=== PATIENT | female | born 1955 | race Caucasian/White ===

== ENCOUNTER 2018-10-05 18:31 | Emergency (ER) | payer OTHER, SELFPAY ==
[~2018-10-05] VITALS: Ht 165.1 cm; Wt 84.8 kg
[~2018-10-05 18:31] MED LIST: ATOR10 PO; CHOL10002 PO; GABA300 PO; Norco 10-325 T1 EACH PO; ZOLP10 PO
[2018-10-05 19:52] LABS: BASOPHILS ABSOLUTE AUTO 0.07 K/mm3 (0.00-0.23); BASOPHILS PERCENT AUTO 1 % (0-2); EOSINOPHILS ABSOLUTE AUTO 0.22 K/mm3 (0.00-0.68); EOSINOPHILS PERCENT AUTO 3 % (0-6); Hematocrit 42.3 % (33.0-51.0); Hemoglobin 13.3 g/dL (11.5-16.0); IMMATURE GRAN ABSOLUTE AUTO 0.02 K/mm3 (0.00-0.10); IMMATURE GRAN PERCENT AUTO 0 % (0-1); LYMPHOCYTES ABSOLUTE AUTO 2.05 K/mm3 (0.84-5.20); LYMPHOCYTES PERCENT AUTO 28 % (21-46); MONOCYTES ABSOLUTE AUTO 0.45 K/mm3 (0.16-1.47); MONOCYTES PERCENT AUTO 6 % (4-13); Mean Corpuscular HGB 29.1 pg (26.0-34.0); Mean Corpuscular HGB Conc 31.4 g/dL (31.5-36.5); Mean Corpuscular Volume 93 fL (80-100); Mean Platelet Volume 10.3 fL (9.1-12.4); NEUTROPHILS ABSOLUTE AUTO 4.41 K/mm3 (1.96-9.15); NEUTROPHILS PERCENT AUTO 61 % (41-73); Platelet Count 249 K/mm3 (150-400); RDW Coefficient Variation 14.1 % (11.7-14.2); RDW Standard Deviation 47.5 fL (35.1-46.3); Red Blood Cell Count 4.57 M/mm3 (3.80-5.20); White Blood Cell Count 7.22 K/mm3 (4.00-11.30)
[2018-10-05 20:08] LABS: Albumin, Blood 3.8 g/dL (3.4-5.0); Albumin/Globulin Ratio 1.1 (0.8-1.8); Bilirubin, Total 0.4 mg/dL (0.1-1.0); Bun/Creatinine Ratio 21.2 (12.0-20.0); Calcium, Blood 9.2 mg/dL (8.5-10.1); Creatinine, Blood 1.04 mg/dL (0.40-1.00); Globulin, Blood 3.5 g/dL (2.2-4.0); Potassium, Blood 4.3 mmol/L (3.5-5.5); Total Protein, Blood 7.3 g/dL (6.4-8.2)
[2018-10-05 22:27] LABS: Influenza A Negative (NEGATIVE); Influenza B Negative (NEGATIVE)
[2018-10-05 22:57] LABS: Source, Urine Clean Catch
[2018-10-05 23:01] LABS: Bilirubin, Urine Neg (Neg); Blood, Urine Neg (Neg); Glucose Qualitative, Urine Neg (Neg); Ketones, Urine Neg (Neg); Leukocyte Esterase, Urine Neg (Neg); Nitrite, Urine Neg (Neg); Protein, Urine Neg (Neg); Urobilinogen, Urine NORM (Normal)
[2018-10-05 23:03] LABS: Appearance, Urine Clear (Clear); Color, Urine Pale Yellow (P-Yellow)
[2018-10-05] MEDS ORDERED: Prednisone20 MG PO (23:32)
[2018-10-05] MEDS ORDERED: BENZ100A PO (23:32)
[2018-10-05] MEDS ORDERED: ALBU90OI INH (23:32)
[2018-10-05] MEDS ORDERED: Zofran4 MG PO (23:32)
== END 2018-10-05 23:49 | disposition home or self-care (01) ==
LOC: ER 18:31
PROVIDERS: Emergency Medicine
DX: J40 Bronchitis, not specified as acute or chronic (principal); R11.2 Nausea with vomiting, unspecified; R74.0 Nonspecific elevation of levels of transaminase and lactic acid dehydrogenase [LDH]; R19.7 Diarrhea, unspecified; Z88.0 Allergy status to penicillin; Z88.8 Allergy status to other drugs, medicaments and biological substances; Z79.899 Other long term (current) drug therapy; F17.200 Nicotine dependence, unspecified, uncomplicated; Z90.49 Acquired absence of other specified parts of digestive tract
CPT/HCPCS: 36415; 71046; 80053; 81003; 83690; 85025; 87804; 93005; 93010; 94644; 96361; 96374; 96376; 99284-25; J2405; J7030

== ENCOUNTER 2019-01-24 08:00 | Day surgery (SDC) | payer OTHER, SELFPAY ==
[~2019-01-24] VITALS: Ht 152.4 cm; Wt 85.2 kg
[~2019-01-24 08:00] MED LIST changes: +ALBU90OI INH; +BENZ100A PO; +Neurontin600 MG PO; +Prednisone20 MG PO; +VITAMIN D32000 UNIT PO; +Zofran4 MG PO
[2019-01-24] MEDS ORDERED: Norco 7.5-3251 EACH PO (08:35)
== END 2019-01-24 10:00 | disposition home or self-care (01) ==
LOC: ORSCSDS 08:00
PROVIDERS: Ophthalmology
PROC: 08RJ3JZ Replacement of Right Lens with Synthetic Substitute, Percutaneous Approach (ICD-10-PCS; principal; 2019-01-24 09:30)
DX: H25.11 Age-related nuclear cataract, right eye (principal); J44.9 Chronic obstructive pulmonary disease, unspecified; F17.210 Nicotine dependence, cigarettes, uncomplicated; Z79.899 Other long term (current) drug therapy
CPT/HCPCS: J2250; J3010; J3301; J7120; V2632

== ENCOUNTER 2019-02-07 08:39 | Day surgery (SDC) | payer OTHER, SELFPAY ==
[~2019-02-07] VITALS: Ht 165.1 cm; Wt 85.4 kg
[~2019-02-07 08:39] MED LIST changes: +Norco 7.5-3251 EACH PO
--- NOTE | 2019-02-07 09:23 | NUR ---
02/07/19 0923 Cameron Niño CALL LIGHT WITHIN REACH
== END 2019-02-07 10:40 | disposition home or self-care (01) ==
LOC: ORSCSDS 08:39
PROVIDERS: Ophthalmology
PROC: 08RK3JZ Replacement of Left Lens with Synthetic Substitute, Percutaneous Approach (ICD-10-PCS; principal; 2019-02-07 10:00)
DX: H25.12 Age-related nuclear cataract, left eye (principal); Z79.899 Other long term (current) drug therapy
CPT/HCPCS: J2001; J2250; J3010; J3301; J7040; J7120; V2632

== ENCOUNTER 2020-02-10 14:23 | Emergency (ER) | payer MEDICARE, OTHER ==
[~2020-02-10] VITALS: Ht 165.1 cm; Wt 91.6 kg
[2020-02-10] MEDS ORDERED: PREG150 PO (14:34)
[2020-02-10] MEDS ORDERED: Estradiol0.5 MG PO (14:37)
== END 2020-02-10 18:44 | disposition home or self-care (01) ==
LOC: ER 14:23
DX: G89.29 Other chronic pain (principal); M54.5 Low back pain; F17.200 Nicotine dependence, unspecified, uncomplicated; Z88.0 Allergy status to penicillin; Z88.8 Allergy status to other drugs, medicaments and biological substances; Z88.5 Allergy status to narcotic agent; Z79.899 Other long term (current) drug therapy
CPT/HCPCS: 36415; 73030; A9270; J1170; J1885; J2405

== ENCOUNTER 2023-01-30 00:59 | Emergency (ER) | payer OTHER ==
[~2023-01-30] VITALS: Ht 162.6 cm; Wt 72.6 kg
[~2023-01-30 00:59] MED LIST changes: +Estradiol0.5 MG PO; +PREG150 PO
[2023-01-30 05:15] VITALS: BP 112/60
== END 2023-01-30 06:03 | disposition home or self-care (01) ==
LOC: ER 00:59
DX: S01.81XA Laceration without foreign body of other part of head, initial encounter (principal); Z23 Encounter for immunization; W06.XXXA Fall from bed, initial encounter; Z88.0 Allergy status to penicillin; Z88.5 Allergy status to narcotic agent; Z88.8 Allergy status to other drugs, medicaments and biological substances; Z79.899 Other long term (current) drug therapy; F17.200 Nicotine dependence, unspecified, uncomplicated
CPT/HCPCS: 12015; 70450; 72125; 90471; 90714; 96374-59; 96375-59; 99283-25; A9270; J0690; J1170; J2270

== ENCOUNTER 2023-04-08 05:51 | Day surgery (SDC) | payer OTHER ==
[~2023-04-08] VITALS: Ht 162.6 cm; Wt 76.4 kg
[2023-04-08] MEDS ORDERED: FURO40 PO (06:20)
[2023-04-08 06:46] VITALS: BP 113/69
--- NOTE | 2023-04-08 06:48 | NUR ---
RUBBING SOUNDS HEARD UPON AUSCULTATION OF LUNGS BILATERALLY FROM MID LOBE TO BASES. PT REFUSED BREATHING TREATMENT PREPROCEDURALLY, NOTIFIED.
--- NOTE | 2023-04-08 08:03 | NUR ---
04/08/23 0803 Tamica Rondon SEE ANESTHESIA RECORD FOR SEDATION
--- NOTE | 2023-04-08 09:47 | NUR ---
POWERGLIDE PLACED BY [employer] DIRECTORQUINCY DIAZ. PT UPDATED WITH ESTIMATED WAIT TIME FOR PROCEDURE.
[2023-04-08 13:05] VITALS: BP 150/90
--- NOTE | 2023-04-08 13:09 | NUR ---
REPORT RECEIVED FROM ALEJANDRA OVALLE RN. VSS. PT ABLE TO REPOSITION SELF IN BED. PT REQUESTING PO FLUIDS AND TOLERATING THEM WELL. PT DENIES PAIN OR DISCOMFORT AT THIS TIME.
[2023-04-08 13:17] VITALS: BP 149/80
--- NOTE | 2023-04-08 13:37 | NUR ---
Patient up to Ambulate independently. Gait steady. VSS AND CONSISTENT WITH PT BASELINE. Discharge instructions reviewed with patient. Patient verbalizes understanding. Copy given to patient to take home. Patient States Post-Procedure ride home has been arranged. Discharged via wheelchair to private car for ride home. PT DENIES PAIN OR DISCOMFORT. PT BELONGINGS RETURNED TO PT.
== END 2023-04-08 13:43 | disposition home or self-care (01) ==
LOC: ORSCMMR 05:51 → ORD 07:30 → ORSCMMR 13:43
PROVIDERS: Surgery
PROC: 0DBN8ZX Excision of Sigmoid Colon, Via Natural or Artificial Opening Endoscopic, Diagnostic (ICD-10-PCS; principal; 2023-04-08 07:30)
PROC: 0DBL8ZX Excision of Transverse Colon, Via Natural or Artificial Opening Endoscopic, Diagnostic (ICD-10-PCS; principal; 2023-04-08 07:30)
PROC: 0DBM8ZX Excision of Descending Colon, Via Natural or Artificial Opening Endoscopic, Diagnostic (ICD-10-PCS; principal; 2023-04-08 07:30)
DX: Z12.11 Encounter for screening for malignant neoplasm of colon (principal); D12.3 Benign neoplasm of transverse colon; D12.4 Benign neoplasm of descending colon; D12.5 Benign neoplasm of sigmoid colon; K64.4 Residual hemorrhoidal skin tags; K64.0 First degree hemorrhoids; I12.9 Hypertensive chronic kidney disease with stage 1 through stage 4 chronic kidney disease, or unspecified chronic kidney disease; N18.30 Chronic kidney disease, stage 3 unspecified; E78.5 Hyperlipidemia, unspecified; F17.210 Nicotine dependence, cigarettes, uncomplicated; Z79.899 Other long term (current) drug therapy
CPT/HCPCS: 88305; C1751; J2704; J7120

== ENCOUNTER 2023-05-26 15:20 | Emergency (ER) | payer MEDICARE ==
[~2023-05-26] VITALS: Ht 162.6 cm; Wt 73.0 kg
[~2023-05-26 15:20] MED LIST changes: +FURO40 PO
[2023-05-26 15:43] VITALS: BP 103/54
== END 2023-05-26 16:59 | disposition home or self-care (01) ==
LOC: ER 15:20
DX: M25.551 Pain in right hip (principal); F17.200 Nicotine dependence, unspecified, uncomplicated; Z88.0 Allergy status to penicillin; Z88.5 Allergy status to narcotic agent; Z88.8 Allergy status to other drugs, medicaments and biological substances; Z79.899 Other long term (current) drug therapy
CPT/HCPCS: 73502; J1885

== ENCOUNTER 2023-06-18 13:14 | Emergency (ER) | payer MEDICARE ==
[~2023-06-18] VITALS: Ht 165.1 cm; Wt 75.3 kg
[2023-06-18 17:00] LABS: BASOPHILS ABSOLUTE AUTO 0.04 K/mm3 (0.00-0.23); BASOPHILS PERCENT AUTO 1 % (0-2); EOSINOPHILS PERCENT AUTO 2 % (0-6); Hematocrit 52.5 % (33.0-51.0); Hemoglobin 17.5 g/dL (11.5-16.0); IMMATURE GRAN ABSOLUTE AUTO 0.03 K/mm3 (0.00-0.10); IMMATURE GRAN PERCENT AUTO 1 % (0-1); LYMPHOCYTES ABSOLUTE AUTO 1.23 K/mm3 (0.84-5.20); LYMPHOCYTES PERCENT AUTO 20 % (21-46); MONOCYTES ABSOLUTE AUTO 0.48 K/mm3 (0.16-1.47); MONOCYTES PERCENT AUTO 8 % (4-13); Mean Corpuscular HGB 29.2 pg (26.0-34.0); Mean Corpuscular HGB Conc 33.3 g/dL (31.5-36.5); Mean Corpuscular Volume 88 fL (80-100); Mean Platelet Volume 10.5 fL (9.1-12.4); NEUTROPHILS ABSOLUTE AUTO 4.36 K/mm3 (1.96-9.15); NEUTROPHILS PERCENT AUTO 70 % (41-73); Platelet Count 248 K/mm3 (150-400); RDW Coefficient Variation 13.7 % (11.7-14.2); White Blood Cell Count 6.24 K/mm3 (4.00-11.30)
[2023-06-18 17:22] LABS: Albumin, Blood 4.4 g/dL (3.4-5.0); Albumin/Globulin Ratio 1.1 (0.8-1.8); Bilirubin, Total 0.8 mg/dL (0.1-1.0); Bun/Creatinine Ratio 18.4 (12.0-20.0); Calcium, Blood 10.4 mg/dL (8.5-10.1); Creatinine, Blood 1.52 mg/dL (0.40-1.00); Globulin, Blood 3.9 g/dL (2.2-4.0); Total Protein, Blood 8.3 g/dL (6.4-8.2)
[2023-06-18 17:44] VITALS: BP 119/86
== END 2023-06-18 19:34 | disposition home or self-care (01) ==
LOC: ER 13:14
PROVIDERS: Student in an Organized Health Care Education/Training Program
DX: G62.9 Polyneuropathy, unspecified (principal); I73.9 Peripheral vascular disease, unspecified; T82.898A Other specified complication of vascular prosthetic devices, implants and grafts, initial encounter; F17.210 Nicotine dependence, cigarettes, uncomplicated; Z88.0 Allergy status to penicillin; Z88.8 Allergy status to other drugs, medicaments and biological substances; Z88.5 Allergy status to narcotic agent; Z79.899 Other long term (current) drug therapy
CPT/HCPCS: 75635; 80053; 83605; 85025; 86850; 86900; 86901; 96361; 96374; 96375; 99284-25; A9270; J1170; J7030; Q9967

== ENCOUNTER 2023-07-19 09:00 | Day surgery (SDC) | payer MEDICARE ==
[~2023-07-19] VITALS: Ht 162.6 cm; Wt 76.0 kg
[2023-07-19] VITALS (8 sets, daily range): BP systolic 121–171; BP diastolic 69–97
[~2023-07-19 09:00] MED LIST changes: +ATOR40TA PO; +Aspir 8181 MG PO; +CATAPRES0.2 M1 PO; +EPIPEN0.3 MG/0.3 IM; +NEURONTIN600 MG PO; +Nicoderm Cq1 EACH TOP; +POTA10T PO; +TIZA4 PO
--- NOTE | 2023-07-19 12:45 | NUR ---
PATIENT ARRIVED TO RECOVERY ROOM. BILATERAL ANGIO SEAL SITES IN PLACE. R GROIN SITE TENDER, BUT SOFT. NO EVIDENCE OF BLEEDING. L SITE C/D/I SOFT/NONTENDER. R LOWER EXTREMITY PULSES PRESENT. L LOWER EXTREMITY DOPPLER PULSE ON PT.
--- NOTE | 2023-07-19 13:00 | NUR ---
PATIENT COMPLAINING OF CHRONIC LOWER BACK PAIN. NOTIFIED. VSS ON RA
--- NOTE | 2023-07-19 13:15 | NUR ---
PATIENT USING PUREWICK. L GROIN SITE OOZING. PRESSURE APPLIED. PRESENT AT BEDSIDE
--- NOTE | 2023-07-19 13:52 | NUR ---
NOTIFIED OF NO PULSE IN L PT
[2023-07-19] MEDS ORDERED: PREG150 PO (14:00)
--- NOTE | 2023-07-19 14:40 | NUR ---
PT L & R FEMORAL SITES C/D/I, SOFT, AND NON-TENDER. L LOWER EXTREMITY PULSE NOW NOTED WITH DOPPLER. PT REPORTS BACK PAIN HAS DECREASED "A LITTLE" SITTING UP IN BED, EATING LUNCH AT THIS TIME. NADN. GLOVER. PT WILL BE DC'D TO HOME WITHIN AN HOUR.
--- NOTE | 2023-07-19 15:30 | NUR ---
PT AMBULATES TO RESTROOM AND BACK WITHOUG DIFF. BILATERAL SITES REMAIN C/D/I. PT DRESSES SELF WITHOUT ASSISTANCE. VERBALIZES UNDERSTANDING WRITTEN AND VERBAL INSTRUCTIONS. DENIES QUESTIONS OR CONCERNS. PT IV DC'D. CATH INTACT. PRESSURE DSG APPLIED. PT DC TO HOME VIA FAMILY BY W/C
== END 2023-07-19 15:36 | disposition home or self-care (01) ==
LOC: MHTC 09:00 → PCU 13:32 → MHTC 15:36
DX: I73.9 Peripheral vascular disease, unspecified (principal); I10 Essential (primary) hypertension; E78.49 Other hyperlipidemia; G62.9 Polyneuropathy, unspecified; Z72.0 Tobacco use; N18.30 Chronic kidney disease, stage 3 unspecified; I12.9 Hypertensive chronic kidney disease with stage 1 through stage 4 chronic kidney disease, or unspecified chronic kidney disease; Z88.0 Allergy status to penicillin; Z88.5 Allergy status to narcotic agent
CPT/HCPCS: 37220; 75625; 75716; 75774; 76937; 99152; 99153; A9270; C1725; C1760; C1769; C1887; C1894; J0360; J1200; J1644; J2060; J2250; J2997; J3010; J7030; J7050; Q9967

== ENCOUNTER 2024-03-24 15:13 | Inpatient (IN) | payer MEDICARE, OTHER ==
[~2024-03-24] VITALS: Ht 165.1 cm; Wt 84.0 kg
[~2024-03-24 15:13] MED LIST changes: +ALBU90OI6 INH; +CYCL10 PO; +CYMBALTA20 M2 PO; +DIAZ2 PO; +DOC250 PO; +DOXY100 PO; +HYDR1TAB94 PO; +HYDROXYZINE PAM25 MG PO; +OXYACE7.5T PO; +VISBIOME 112.51 EACH PO; +ZOLPIDEM TARTRA10 MG PO
[2024-03-24 15:52] LABS: BASOPHILS ABSOLUTE AUTO 0.05 K/mm3 (0.00-0.23); BASOPHILS PERCENT AUTO 1 % (0-2); EOSINOPHILS ABSOLUTE AUTO 0.12 K/mm3 (0.00-0.68); EOSINOPHILS PERCENT AUTO 2 % (0-6); Hematocrit 40.7 % (33.0-51.0); Hemoglobin 12.4 g/dL (11.5-16.0); IMMATURE GRAN ABSOLUTE AUTO 0.04 K/mm3 (0.00-0.10); IMMATURE GRAN PERCENT AUTO 1 % (0-1); LYMPHOCYTES ABSOLUTE AUTO 1.14 K/mm3 (0.84-5.20); LYMPHOCYTES PERCENT AUTO 15 % (21-46); MONOCYTES ABSOLUTE AUTO 0.47 K/mm3 (0.16-1.47); MONOCYTES PERCENT AUTO 6 % (4-13); Mean Corpuscular HGB 27.9 pg (26.0-34.0); Mean Corpuscular HGB Conc 30.5 g/dL (31.5-36.5); Mean Corpuscular Volume 92 fL (80-100); Mean Platelet Volume 9.6 fL (9.1-12.4); NEUTROPHILS ABSOLUTE AUTO 5.87 K/mm3 (1.96-9.15); NEUTROPHILS PERCENT AUTO 76 % (41-73); Platelet Count 205 K/mm3 (150-400); RDW Coefficient Variation 14.7 % (11.7-14.2); RDW Standard Deviation 49.8 fL (35.1-46.3); Red Blood Cell Count 4.44 M/mm3 (3.80-5.20); White Blood Cell Count 7.69 K/mm3 (4.00-11.30)
[2024-03-24 16:39] LABS: Albumin/Globulin Ratio 0.7 (0.8-1.8); Bilirubin, Total 0.3 mg/dL (0.1-1.0); Bun/Creatinine Ratio 17.1 (12.0-20.0); Calcium, Blood 8.8 mg/dL (8.5-10.1); Creatinine, Blood 1.17 mg/dL (0.40-1.00); Globulin, Blood 4.1 g/dL (2.2-4.0); Potassium, Blood 4.6 mmol/L (3.5-5.5); Total Protein, Blood 7.1 g/dL (6.4-8.2)
[2024-03-24] MEDS ORDERED: Clindamycin 900mg in D5W 50ML 50 ML IV ONE (18:35)
[2024-03-24] MEDS ORDERED: Cefepime HCl 2,000 MG in NS 100 ML IV ONE (18:35)
[2024-03-24] MEDS ORDERED: Ketorolac Tromethamine 30mg Vial IV ONE (18:40)
[2024-03-24] MEDS ORDERED: Morphine Sulfate 4 MG/1 ML Injection IV ONE ×2 (18:40→20:35)
[2024-03-24] MEDS ORDERED: ZOLPIDEM TARTRA10 MG PO (19:15)
[2024-03-24] MEDS ORDERED: Ipratropium/Albuterol SulF 2.5-0.5MG/3 ML Amp INH ONE (21:55)
[2024-03-24] MEDS ORDERED: Naloxone HCl 0.4MG / ML 1ML Vial IV PRN (23:10)
[2024-03-24] MEDS ORDERED: Ondansetron HCl 2 MG / ML 2ML Vial IV PRN (23:10)
[2024-03-24] MEDS ORDERED: FentaNYL Citrate 50 MCG/ML 2 ML Injection IV PRN (23:15)
[2024-03-24] MEDS ORDERED: Acetaminophen 325 MG TABLET PO PRN (23:15)
[2024-03-25] VITALS (7 sets, daily range): BP systolic 90–139; BP diastolic 49–79
[2024-03-25] MEDS ORDERED: Lactated Ringer's 1,000 ML IV SCH
[2024-03-25 00:23] LABS: Anti-Xa UFH, PHA Monitoring <0.10 IU/mL; International Normalized Ratio 1.01; Prothrombin Time Results 10.8 Sec (9.7-11.5)
[2024-03-25] MEDS ORDERED: HYDROcodone 10-APAP 325 TAB PO PRN (00:25)
[2024-03-25] MEDS ORDERED: EpiNEPhrine 1 MG/1 ML 1ML Vial IM PRN (00:25)
[2024-03-25] MEDS ORDERED: Zolpidem Tartrate 10 MG Tab PO PRN (00:30)
[2024-03-25] MEDS ORDERED: Albuterol HFA200 ACT/6.7 GM INH INH PRN (00:30)
[2024-03-25] MEDS ORDERED: Heparin Sodium,Porcine/0.5 NS 500 ML IV SCH (00:40)
[2024-03-25] MEDS ORDERED: Heparin Sodium 5000 Units/ML 1ML MDV IV ONE (00:40)
[2024-03-25] MEDS ORDERED: Atorvastatin 40 MG Tab PO SCH (01:00)
--- NOTE | 2024-03-25 02:17 | NUR ---
ARRIVAL/ASSUMPTION OF CARE THIS RN ASSUMED CARE OF PT AT 0018 WHEN PT ARRIVED TO PCU. REPORT FROM NADIRA REYNA RN. PT ARRIVED VIA GURNEY, TRANSFERRED TO HOSPITAL BED VIA SLIDE SHEET. VS; SBP 94-112, HR 80'S, AFEBRILE, RR WNL, AND PT ON RA WITH SPO2 95%. PT DENIES DIZZINESS, CP/PRESSURE, SOB, N/V/D. PT REPORTS SEVERE PAIN, 10/10 IN LLE. LLE S/P REVASC "APPROXIMATELY 2 WEEKS AGO OR SO". EXTREMITY IS RED, TENDER, AND MANY OPEN SORES/WOUNDS ON THE TOP AND BOTTOM OF THE FOOT WITH SKIN PEELING AWAY, DISCOLORATION NOTED IN GREAT TOE AND 2,3,5 TOES, SEE PICTURES IN CHART. PAIN MEDICATION, REPOSTIONING AND REST OFFERED FOR PAIN WITH MODERATE RELIEF. ALTHOUGH PT REPORTS THE PAIN IS HARD TO CONTROL AND DOES NOT GET "MUCH RELIEF". PULSE PRESENT IN LLE WITH DOPPLER. SMALL SCAB/SORE NOTED ON R FOOT AND RLE COLD TO THE TOUCH, PULSE PALPABLE AND STRONG. PT REPORS [place] IND AT HOME WITH WALKER. PT ORIENTED TO ROOM AND CALL LIGHT AND MADE COMFORTABLE.
--- NOTE | 2024-03-25 06:34 | NUR ---
SHIFT SUMMARY PT REMAINS A&O X4. VSS. NO ACUTE CHANGES SINCE ARRIVAL/ASSUMPTION OF CARE NOTE. VSS; SBP 94 - 119, SR WITH HR IN 80'S, AFEBRILE, SPO2 92 % - 1-2 LPM NC PRN AND WHILE SLEEPING. SPO2 95-96% WITH O2. PT ABLE TO AMBULATE TO BSC WITH MINIMAL ASSISTANCE. PT DENIES ISSUES GI/. PT CONTINUES WITH PAIN 8-10. REPOSITIONING, REST, AND MEDICATION PER MAR WITH MINIMAL RELIEF. HEPARIN INFUSING PER PHARMACY. PODIATRY CONSULT CALLED THIS AM. PT NPO PER ORDERS IN CASE TO BE SEEN AND POSSIBLE PROCEDURE. CALL LIGHT IN REACH, PT ABLE TO MAKE NEEDS KNOWN. WILL UPDATE ONCOMING RN
[2024-03-25 07:07] LABS: Hematocrit 30.1 % (33.0-51.0); Hemoglobin 9.3 g/dL (11.5-16.0); Mean Corpuscular HGB 28.3 pg (26.0-34.0); Mean Corpuscular HGB Conc 30.9 g/dL (31.5-36.5); Mean Corpuscular Volume 92 fL (80-100); Mean Platelet Volume 9.9 fL (9.1-12.4); Platelet Count 156 K/mm3 (150-400); RDW Standard Deviation 50.4 fL (35.1-46.3); Red Blood Cell Count 3.29 M/mm3 (3.80-5.20); White Blood Cell Count 4.92 K/mm3 (4.00-11.30)
[2024-03-25 07:24] LABS: Albumin, Blood 2.4 g/dL (3.4-5.0); Albumin/Globulin Ratio 0.7 (0.8-1.8); Bilirubin, Total 0.3 mg/dL (0.1-1.0); Bun/Creatinine Ratio 20.8 (12.0-20.0); C-REACTIVE PROTEIN, EXT RANGE 5.02 mg/dL (0.000-0.300); Calcium, Blood 8.6 mg/dL (8.5-10.1); Creatinine, Blood 1.25 mg/dL (0.40-1.00); Globulin, Blood 3.3 g/dL (2.2-4.0); Magnesium, Blood 2.1 mg/dL (1.6-2.4); Potassium, Blood 4.6 mmol/L (3.5-5.5); Total Protein, Blood 5.7 g/dL (6.4-8.2)
[2024-03-25 07:31] LABS: BAND PERCENT MAN 3 % (0-8); BASOPHILS ABSOLUTE MAN 0.09 K/mm3 (0.00-0.23); BASOPHILS PERCENT MAN 2 % (0-2); EOSINOPHILS ABSOLUTE MAN 0.09 K/mm3 (0.00-0.68); EOSINOPHILS PERCENT MAN 2 % (0-6); LYMPHOCYTES % ATYPICAL MANUAL 1 % (0-0); LYMPHOCYTES ABSOLUTE MAN 1.13 K/mm3 (0.84-5.20); LYMPHOCYTES PERCENT MAN 22 % (21-46); MONOCYTES ABSOLUTE MAN 0.14 K/mm3 (0.16-1.47); MONOCYTES PERCENT MAN 3 % (4-13); NEUTROPHILS ABSOLUTE MAN 3.39 K/mm3 (1.96-9.15); PLASMA CELL ABSOLUTE MAN 0.04 K/mm3 (0.00-0.00); PLASMA CELLS PERCENT MAN 1 % (0-0); SEG NEUTROPHILS PERCENT MAN 66 % (41-73); TOTAL CELLS COUNTED 100
[2024-03-25] MEDS ORDERED: Dose Adjust by Pharmacy XX STA ×2 (07:34→13:42)
[2024-03-25] MEDS ORDERED: Lactobacil 2-S.Thermo-Bifido 1 1 Cap PO SCH (09:00)
[2024-03-25] MEDS ORDERED: Pregabalin 50 MG Capsule PO SCH (09:00)
[2024-03-25] MEDS ORDERED: Nicotine 14 MG PATCH TOP SCH (09:00)
[2024-03-25] MEDS ORDERED: Docusate Sodium 100 MG Cap PO SCH (09:00)
[2024-03-25] MEDS ORDERED: DULoxetine HCL 20 MG Cap DR PO SCH (09:00)
[2024-03-25] MEDS ORDERED: Cefepime HCl 2,000 MG in NS 100 ML IV SCH (09:00)
[2024-03-25 10:10] LABS: Percent Saturation 20.8 % (15.0-50.0)
--- NOTE | 2024-03-25 10:39 | NUR ---
DR. COOLEY CAME TO BEDSIDE THIS MORNING AND EVALUATED THE PT'S LIMB. HE CONSULTED IR FOR ANOTHER REVASC BEFORE HE WOULD TAKE THE PT FOR PROCEDURE/AMPUTATION. HE EXPALINED TO THE PT THAT SHE NEEDS IMPROVED BLOOD FLOW SO SHE CAN HAVE APPROPRAITE WOUND HEALING. I CALLED IN THE CONSULT FOR DR. MARTINS AT THE ANSWERING SERVICE.
--- NOTE | 2024-03-25 12:53 | NUR ---
MORNING SUMMARY PT IS A&OX4, CALLS APPROPRIATELY, AND IS ABLE TO MAKE HER NEEDS KNOWN. SHE DOES IMPAIRED GAIT D/T HER LLE ISCHEMIC WOUND. SHE STILL IS ABLE TO GET UP 1P TO THE BSC AND CHAIR. I HAVE BEEN ENCOURAGING THE PT TO KEEP HER LEG ELEVATED BECAUSE OF THE PAIN AND LACK OF BLOOD FLOW TO HER FOOT. I HAVE BEEN MEDICATING HER AROUND THE CLOCK WITH NORCO, AND I HAVE GIVEN FENTANYL FOR BREAKTHROUGH PAIN. PAIN HAS BEEN HARD TO MANAGE, BUT WHEN THE PT IS SLEEPING I TRY TO LET HER REST. SHE HAS BEEN BETWEEN RA AND 1L NC. THE ONLY REASON SHE HAS BEEN ON 1L NC IS FOR SUPPORTIVE CAREWHEN SHE IS RECIEVING FENTANYL. SP02 >93%. BP SOFT BUT STABLE. IR AND PODIATRY HAVE BOTH BEEN CONSULTED. DR. MARTINS IS NOT ON UNTIL TOMORROW AND HIS OFFICE REQUESTED WE CHECK IN 03/26 TO ENSURE THE CONSULT WAS PLACED. SHE IS MEDICAL W/O TELE AND WILL BE TRANSFERING TO ROOM 313. MAGALI MATHEW WILL BE THE RECIVEING RN.
--- NOTE | 2024-03-25 19:41 | NUR ---
ASSUMED CARE OF PT THIS AFTERNOON ON ARRIVAL TO ROOM 313. NO ACUTE CHANGES. PT MEDICATED FOR PAIN PER ORDERS. SEE DOCUMENTED VS. PT HAD A FEVER, MEDICATED W TYLENOL PER EMAR. CALL LIGHT IN REACH, PT ABLE TO USE FOR NEEDS. REPORT GIVEN TO NOC SHIFT RN.
--- NOTE | 2024-03-25 22:57 | NUR ---
RESPIRATORY THERAPY ASSESSED PT AND 2L OF O2 ADMINISTERED VIA N/C FOR A O2 SATURATION OF 87-88%
[2024-03-26 02:52] VITALS: BP 174/93
[2024-03-26 05:02] LABS: Hematocrit 30.5 % (33.0-51.0); Hemoglobin 9.5 g/dL (11.5-16.0); Mean Corpuscular HGB 28.1 pg (26.0-34.0); Mean Corpuscular HGB Conc 31.1 g/dL (31.5-36.5); Mean Corpuscular Volume 90 fL (80-100); Mean Platelet Volume 10.4 fL (9.1-12.4); Platelet Count 143 K/mm3 (150-400); RDW Coefficient Variation 14.6 % (11.7-14.2); RDW Standard Deviation 48.1 fL (35.1-46.3); Red Blood Cell Count 3.38 M/mm3 (3.80-5.20); White Blood Cell Count 6.13 K/mm3 (4.00-11.30)
[2024-03-26 05:20] LABS: Bun/Creatinine Ratio 23.7 (12.0-20.0); Calcium, Blood 8.9 mg/dL (8.5-10.1); Creatinine, Blood 0.93 mg/dL (0.40-1.00); Potassium, Blood 4.7 mmol/L (3.5-5.5)
--- NOTE | 2024-03-26 05:38 | NUR ---
ASSUMED CARE OF PT WHILE PRIMARY RN ON BREAK. CALL LIGHT WITHIN REACH.
[2024-03-26] MEDS ORDERED: Dose Adjust by Pharmacy XX STA ×3 (05:53→18:26)
--- NOTE | 2024-03-26 06:15 | NUR ---
SHIFT SUMMARY PT A&OX4 AND ANSWERS QUESTIONS APPROPRIATELY. PT RECEIVED HS MEDICATIONS. HEPARIN DRIP INFUSING AT 18 UNITS/HR, VERIFIED BY JOEY DUFFY RN. VSS, NO COMPLAINTS OF CP/PRESSURE OR SOB. PT WAS CONTINENT TO THE BSC. PT SPENT MOST OF SHIFT WITH EYES CLOSED AND RESPIRATIONS EVEN AND UNLABORED. NO ACUTE EVENTS AT THIS TIME. PT LEFT IN A POSITION OF SAFETY WITH PROPER FALL PRECAUTIONS IN PLACE AND CALL LIGHT IN REACH.
[2024-03-26] MEDS ORDERED: HydrALAZINE HCl 20 MG / ML 1ML Vial IV PRN (07:20)
[2024-03-26 07:56] VITALS: BP 107/56
[2024-03-26] MEDS ORDERED: Morphine Sulfate 4 MG/1 ML Injection IV PRN (09:40)
--- NOTE | 2024-03-26 13:26 | NUR ---
FOUND PATIENT DRINKING COFFEE WITH SON. PATIENT NPO FOR POSSIBLE PROCEDURE/SURGERY. SON AGITATED AND WANTING TO SPEAK TO A DOCTOR. SON STATING HE HAS BEEN KICKED OUT OF THIS HOSPITAL TWICE ALREADY AND WANTS TO SPEAK TO A DOCTOR. PRIMARY NURSE ARRIVED AND REMINDED SON THAT HE SPOKE WITH THE HOSPITALIST THIS MORNING AND THAT SHE JUST FINISHED SPEAKING TO DR. PHAM. PATIENT TO GO TO SURGERY TOMORROW AFTER CLINIC. EDUCATION ATTEMPTED TO BE PROVIDED TO PATIENT AND SON ABOUT THE IMPORTANCE OF NOTHING BY MOUTH BEFORE SURGERY AND RISK FOR ASPIRATION. PATIENT ADMITTED TO DRINKING COFFEE SON REPEATEDLY SAYING WHAT DOES IT FUCKING MATTER, IT IS JUST COFFEE.
[2024-03-26 15:06] VITALS: BP 99/61
[2024-03-26] MEDS ORDERED: Ferrous Sulfate 325 MG Tab PO SCH (17:00)
--- NOTE | 2024-03-26 17:42 | NUR ---
SHIFT SUMMARY PT A&OX4, VSS/2LNC, MARTA PO, VOIDING/BSC/SBA, PAIN MANAGED, IV ABX PER EMAR AND HEPARIN PER PHARMACY. DR PHAM IN TO SEE PT/SON ON SPEAKER PHONE. PLAN FOR DR PHAM TO CONTACT DR MARTINS FOR FU R/T REVASC, IF DR MARTINS REP THAT REVASC WONT BE SUCCESSFUL THEN THIS PT TO BE REFERRED TO [facility] FOR [facility], WILL BE NPO MIDNOC; BK MATHEW AWARE FOR FU ON TUESDAY. WILL REPORT TO ONCZION BUITRAGO RN.
[2024-03-26 19:54] VITALS: BP 107/60
[2024-03-27] VITALS (10 sets, daily range): BP systolic 101–148; BP diastolic 52–100
[2024-03-27 04:57] LABS: Hematocrit 30.2 % (33.0-51.0); Hemoglobin 9.2 g/dL (11.5-16.0); Mean Corpuscular HGB 28.1 pg (26.0-34.0); Mean Corpuscular HGB Conc 30.5 g/dL (31.5-36.5); Mean Corpuscular Volume 92 fL (80-100); Mean Platelet Volume 10.3 fL (9.1-12.4); Platelet Count 135 K/mm3 (150-400); RDW Coefficient Variation 14.5 % (11.7-14.2); RDW Standard Deviation 49.1 fL (35.1-46.3); Red Blood Cell Count 3.27 M/mm3 (3.80-5.20); White Blood Cell Count 4.88 K/mm3 (4.00-11.30)
--- NOTE | 2024-03-27 05:13 | NUR ---
PT A&OX4 AND ANSWERS QUESTIONS APPROPRIATELY. PT RECEIVED A NEW IV THIS EVENING IN ORDER TO ADMINISTER IV ANTIBIOTICS DUE TO HEPARIN DRIP BEING IN PLACE. PT RECEIVED HS MEDICATIONS. PT O2 LEVELS DROPPED DURING 0300 VITALS, PT REPOSITIONED AND O2 LEVELS RETURNED TO OVER 90%. REMAINING VSS, NO COMPLAINTS OF CP/PRESSURE OR SOB. NO ACUTE EVENTS AT THIS TIME. PT SPENT MOST OF SHIFT WITH EYES CLOSED AND RESPIRATIONS EVEN AND UNLABORED. PROPER FALL PRECAUTIONS IN PLACE AND CALL LIGHT IN REACH.
[2024-03-27] MEDS ORDERED: Clarify Drug Order XX ONE (05:15)
[2024-03-27 16:30] LABS: Hematocrit 26.5 % (33.0-51.0); Hemoglobin 8.4 g/dL (11.5-16.0)
[2024-03-27] MEDS ORDERED: NS 1,000 ML IV ONE ×2 (16:46→17:26)
[2024-03-27] MEDS ORDERED: NS 250 ML IV ONE (16:46)
[2024-03-27] MEDS ORDERED: Heparin Sodium 1000 Units/ML 10ML MDV ONE (16:46)
[2024-03-27] MEDS ORDERED: Midazolam HCl 1MG / ML 2ML Vial ONE (17:26)
[2024-03-27] MEDS ORDERED: FentaNYL Citrate 50 MCG/ML 2 ML Injection ONE ×2 (17:26→18:23)
--- NOTE | 2024-03-27 17:46 | NUR ---
SHIFT SUMMARY AND TRANSFER TO THE POLE CUTTER PATIENT CONFUSED AND NOT FOLLOWING DIRETIONS AT START OF SHIFT. PATIENT GETTING OUT OF BED AND NOT USING HER CALL LIGHT. PATIENT FOUND STANDING IN HER ROOM WITH BLOOD ALL OVER THE FLOOR. PATIENT HAD PULLED APART HER IV TUBING FROM HER POWER GLIDE AND WAS DRIPPING BLOOD ALL OVER THE FLOOR. PATIENT NOT FOLLOWING DIRECTIONS WHILE TRYING TO CLEAN HER UP WHICH IS DIFFERENT FROM YESTERDAY. THE DAY PROGRESSED. PATIENT MORE COOPERATIVE AND DOES NOT REMEMBER EVENT. PATIENT USING CALL LIGHT. PATIENT TAKEN DOWN TO POLE CUTTER VIA BED. DR. MARTINS AND POLE CUTTER STAFF INFORMED OF EVENT AND POSSIBLE ADVERSE REACTION TO MORPHINE. PATIENT VERY TEARFUL BEFORE GOING TO POLE CUTTER. PATIENT WORRYING ABOUT HOW IT WAS GOING TO GO AND STATING OVER AND OVER THAT SHE DID NOT WANT TO LOSE HER FOOT OR GET BLOOD POISONING. PROVIDED ACTIVE LISTENING AND SUPPORT TO PATIENT. ATTEMPTED TO EDUCATE PATIENT RELATED TO PROCEDURE AND SITUATION. SITTER WITH PATIENT UNTIL SENT TO [facility]
[2024-03-27] MEDS ORDERED: Nitroglycerin 2 MG/20 ML BTL ONE (18:17)
--- NOTE | 2024-03-27 19:30 | NUR ---
ASSUMPTION OF CARE THIS RN ASSUMED CARE OF PATIENT AT 1900. PT FROM ENTRY LEVEL PROJECT ENGINEER AT SHIFT CHANGE. LLE REVASC DONE. LEFT FOOT WRAPPED WITH DRESSING, SKIN SLOUGHING PER REPORT. DRESSING LEFT IN PLACE. TIBIAL PULSE FELT IN LLE. RADIAL AND RLE PULSES NORMAL. VSS. PT REPORTS PAIN IN FEET. LLE HOT AND RED TO TOUCH. RT FEMORAL ACCESS SITE WITH DRESSING C/D/I, SOFT/NONTENDER TO TOUCH, NO BLEEDING, OOZING, OR HEMATOMA NOTED. PUREWICK IN PLACE D/T BEDREST STATUS AT THIS TIME. PT NEURO INTACT. CALLING [facility]. BED IN LOWEST POSITION AND CALL LIGHT WITHIN REACH.
[2024-03-28] VITALS (22 sets, daily range): BP systolic 70–128; BP diastolic 46–83
[2024-03-28 02:15] LABS: Hematocrit 32.4 % (33.0-51.0); Mean Corpuscular HGB 27.9 pg (26.0-34.0); Mean Corpuscular HGB Conc 30.9 g/dL (31.5-36.5); Mean Corpuscular Volume 91 fL (80-100); Platelet Count 121 K/mm3 (150-400); RDW Coefficient Variation 14.6 % (11.7-14.2); Red Blood Cell Count 3.58 M/mm3 (3.80-5.20); White Blood Cell Count 3.17 K/mm3 (4.00-11.30)
[2024-03-28 02:31] LABS: Bun/Creatinine Ratio 23.8 (12.0-20.0); Calcium, Blood 9.1 mg/dL (8.5-10.1); Creatinine, Blood 0.76 mg/dL (0.40-1.00); Potassium, Blood 4.4 mmol/L (3.5-5.5)
[2024-03-28] MEDS ORDERED: Dose Adjust by Pharmacy XX STA ×3 (02:32→17:03)
--- NOTE | 2024-03-28 04:40 | NUR ---
SHIFT SUMMARY SEE PREVIOUS NOTE. NO CHANGES TO RT FEMORAL ACCESS SITE, REMAINS WNL AND UNCHANGED FROM PREVIOUS NOTE. SR/ST ON MONITOR WITH HR 90-100'S. BP STABLE. ON 2L VIA NC WITH SPO2 >90%. MEDICATING PER EMAR FOR PAIN. PUREWICK IN PLACE. PT ABLE TO REPOSITION SELF IN BED. ELEVATING EXTEMETIES ON PILLOWS FOR COMFORT. BED IN LOWEST POSITION AND CALL LIGHT WITHIN REACH. THIS RN WILL REPORT TO ONCOMING DAYSHIFT RN.
--- NOTE | 2024-03-28 08:00 | NUR ---
INITIAL ASSESSMENT PATIENT ALERT AND ORIENTED EXCEPT TO TOWN. PATIENT ANXIOUS AT TIMES. PATIENT WEAK BUT ABLE TO MOVE ALL EXTREMITIES. PATIENT RECEIVING PRN PAIN MEDICATIONS FOR ACHING IN L FOOT AND LEG FROM GANGRENE/ REVASCULARIZATION. PATIENT DECREASED FROM 2 L NC TO RA AND REMAINS SATTING 90% AND GREATER. EXPIRATORY WHEEZES NOTED IN ALL LUNG LOBES. PATIENT IN SR, HR IN THE 90S. SBP IN THE 80S. 1+ EDEMA TO LEFT FOOT. DOPPLER PULSE TO TIBIAL, TIBIAL PULSE FAINT. GI WNL. PUREWICK AND ATTENDS IN PLACE. URINE ORANGE IN COLOR. SKIN PALE WITH SCATTERED BRUISES. HEPARIN AT 18 UNITS/ KG/ HOUR. BED LOW, CALL LIGHT IN REACH. CARE CONTINUES.
--- NOTE | 2024-03-28 08:04 | NUR ---
DR. BERRIOS CALLED AND INFORMED THAT BP 70/55 BUT THAT PATIENT COMPLAINS OF 8/10 PAIN IN LEFT FOOT. STATED SHE WOULD PLACE ORDERS.
[2024-03-28] MEDS ORDERED: FentaNYL Citrate 50 MCG/ML 2 ML Injection IV STA (08:11)
[2024-03-28] MEDS ORDERED: NS 500 ML IV STA (08:12)
[2024-03-28 09:09] LABS: Hematocrit 26.6 % (33.0-51.0); Hemoglobin 8.3 g/dL (11.5-16.0)
[2024-03-28] MEDS ORDERED: Bisacodyl 10 MG Supp PR PRN (11:35)
[2024-03-28] MEDS ORDERED: Sennosides 8.6 MG Tab PO PRN (11:35)
--- NOTE | 2024-03-28 12:00 | NUR ---
PATIENT AFEBRILE. HR IN THE 80S. SBP IN THE 90S. PATIENT GIVEN SENOKOT FOR CONSTIPATION AND HARD STOOLS. PATIENT GIVEN PRN NORCO AND TYLENOL FOR COMPLAINTS OF LEFT FOOT AND LEG PAIN. BED LOW, CALL LIGHT IN REACH, BED ALARM ON. CARE CONTINUES.
--- NOTE | 2024-03-28 13:49 | NUR ---
DR. BERRIOS CALLED AND INFORMED THAT PATIENT'S BP LOW WITH MEAN AT 55 AND THAT PATIENT HAS ONLY HAD OUT 100 MLS OF MEASURABLE URINE AND SMALL AMOUNT OF INCONTINENT URINE. ANOTHER 500 CC NS BOLUS ORDERED.
[2024-03-28] MEDS ORDERED: NS 500 ML IV ONE (13:50)
--- NOTE | 2024-03-28 17:40 | NUR ---
PATIENT AFEBRILE. HR IN THE 70S. SBP IN THE 1-TEENS. PATIENT SLEEPING UPON ENTERING ROOM. BED LOW, CALL LIGHT IN REACH, BED ALARM ON. CARE CONTINUES.
--- NOTE | 2024-03-28 17:59 | NUR ---
SHIFT SUMMARY PATIENT REMAINED MOSTLY ALERT AND ORIENTED BUT DID HAVE SOME PERIODS OF CONFUSION. PATIENT ANXIOUS AT TIMES THIS AM. PATIENT DROWSY THIS AFTERNOON. PATIENT REMAINS COMPLAINING OF 8/10 L FOOT PAIN AND HAS BEEN RECEIVING PRN PAIN MEDICATIONS FOR. THIS AFTERNOON PATIENT HAS BEEN SLEEPING MORE AND WHEN WAKES UP STATES SHE NEEDS PAIN MEDICATION FOR 8/10 PAIN. PATIENT HAS REMAINED AFEBRILE. PATIENT REMAINS WEAK. PT/OT ORDERED THIS SHIFT. PATIENT SATTING 90% AND GREATER ON RA TO 4 L NC. PATIENT CONTINUED TO HAVE EXPIRATORY WHEEZES. PATIENT REMAINED IN SR, HR 60S TO 90S. SBP 70S TO 120S. PATIENT RECEIVED 2 500 ML NS BOLUSES THIS SHIFT FOR HYPOTENSION. APPEARANCE OF L FOOT IMPROVED FROM BEGINNING OF SHIFT. FOOT OVERALL MORE PINK. DR. PHAM HERE TO SEE FOOT TODAY. DR. PHAM STATES THAT WE WILL CONTINUE TO WATCH FOOT AND THAT HE WILL CHECK BACK UP ON IN ON TUESDAY. BOWEL CARE STARTED THIS SHIFT. PATIENT HAD 1 BM BUT VERY HARD AND PAINFUL FOR PATIENT TO GET OUT. PATIENT HAD GOOD APPETITE ONCE ABLE TO EAT. PATIENT VOIDING ORANGE COLOR URINE. HEPARIN DRIP NOW AT 16 U/ KG/ HOUR. BED LOW, CALL LIGHT IN REACH, BED ALARM ON. PATIENT SLEEPING AFTER DINNER. REPORT WILL BE GIVEN TO ASSUMING HIGH DENSITY FINISHING OPERATOR NURSE SHORTLY.
[2024-03-29] VITALS (7 sets, daily range): BP systolic 103–130; BP diastolic 48–64
[2024-03-29] MEDS ORDERED: Dose Adjust by Pharmacy XX STA ×3 (00:06→14:41)
--- NOTE | 2024-03-29 04:37 | NUR ---
SHIFT SUMMARY THIS RN ASSUMED CARE OF PATIENT AT 1900. NO ACUTE CHANGES OVERNIGHT. PT LETHARGIC ON/OFF DURING THIS SHIFT. EASILY ROUSES WITH VERBAL STIMULI. ORIENTED X3-4. VSS. MEDICATED PER EMAR FOR BACK/LEG PAIN. LLE FOOT COLOR APPEARS MORE RED AND LESS BLACK THAN PREVIOUS NOC SHIFT WITH THIS RN. FOOT OPEN TO AIR. ELEVATING ON PILLOWS FOR COMFORT. HEPARIN GTT INFUSING PER EMAR. PUREWICK IN PLACE. SMALL AMOUNT OF ORANGE URINE NOTED. ENCOURAGING FLUIDS. MEPILEX ON COCCYX. FOOT CRADLE ON BED FOR COMFORT. BED IN LOWEST POSITION AND CALL LIGHT WITHIN REACH. THIS RN WILL REPORT TO ONCOMING DAYSHIFT RN.
[2024-03-29 07:18] LABS: Hematocrit 25.6 % (33.0-51.0); Hemoglobin 7.9 g/dL (11.5-16.0); Mean Platelet Volume 10.7 fL (9.1-12.4); Platelet Count 118 K/mm3 (150-400)
[2024-03-29] MEDS ORDERED: HYDROmorphone HCl/Pf 1MG SYR IV PRN (12:10)
--- NOTE | 2024-03-29 12:37 | NUR ---
LATE ENTRY 1000. Pt bed alarm activated. Pt attempting to get oob to go to bathroom. Ast pt to BSC with FWW. BM and void noted. Pt declines reapplication of purewick. Brief placed. Bottom on left foot by baby toe bleeding. Dressing applied. One person ast back to bed.
--- NOTE | 2024-03-29 14:15 | NUR ---
Patient is immediately tearful when I explain who I am and my role at the hospital. She tells me that she is lost as to what to do and keeps praying that God would save her foot. 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 She expresses her malgorzata in God but her fear about the situation. I normalize her experience and provide therapeutic listening, gentle associate counsel, anxiety containment and prayer. Patient responded well and showed signs of reduced stress. I will continue to remain available to patient and family.
--- NOTE | 2024-03-29 15:11 | NUR ---
OXYGEN REFUSAL THIS RN TO PT RM D/T DESAT TO 84%. PT NOTED TO BE SITTING UP ON EDGE OF BED W/ NC OFF. THIS RN REQUESTING TO APPLY NC TO PT BUT PT IMMEDIATELY UPSET, STATING "WHY WON'T YOU GUYS JUST LEAVE ME BE!? I DON'T WANT IT!" THIS RN EXPLAINING TO PT LOW O2 LEVELS AND NEED FOR NC AT THIS TIME. PT AGITATED, YELLING AT THIS RN, STATING "YOU GUYS ARE ALWAYS IN HERE & NEVER LEAVE ME ALONE. I JUST WANT TO BE LEFT ALONE!" THIS RN STATING, "I CAN PUT THIS NC IN & THEN LEAVE YOU ALONE." PT YELLING "NO! I SAID I DON'T WANT IT!" PT REMAINS SITTING AT EDGE OF BED W/ NC OFF, SPO2 80s. THIS RN STATING "IT'LL BE BETTER IF WE CAN WORK TOGETHER." PT STATING "NO! I DON'T HAVE TO. GET OUT!"
--- NOTE | 2024-03-29 16:13 | NUR ---
SHIFT SUMMARY Pt remains A&Ox3 this shift with episodes of forgetfulness. Declining to keep oxygen on, yelling at staff to get out of her room. O2 sat 88-90% RA. Currently resting peacefully, allowing BP to be checked. VSS. 1 person ast with FWW to BSC for BM/void. NWB LLE. Brief in place. Heparin gtt infusing as ordered without interuption this shift. Pain meds given for pain as ordered/needed. Able to postion self in bed. Will continue to monitor this shift and document any changes noted.
[2024-03-29] MEDS ORDERED: NS 250 ML IV PRN (20:45)
[2024-03-30 04:31] VITALS: BP 96/54
--- NOTE | 2024-03-30 04:41 | NUR ---
SHIFT SUMMARY PATIENT REMAINS ALERT AND ORIENTED X3-4. SP02 100% ON 2L VIA NC WHILE SLEEPING. DENIES SOB. HR SR 60s, BP STABLE. DENIES CP/PRESSURE. LLE PAIN, PATIENT REPORTS 9/10, MEDICATING PER EMAR AND PATIENT SLEEPING ON AND OFF THROUGH THE NIGHT. LLE IS WARM AND PAINFUL TO TOUCH, DOPPLER PEDAL PULSE. PATIENT WOULD NOT LET THIS RN UNWRAP IT. 1 PERSON ASSIST UP TO BSC, NON WIEGHT BEARING ON LLE. AGITATED AT START OF SHIFT AND REFUSING SOME CARE, HAS BECOME SLIGHTLY MORE COOPERATIVE THROUGH THE NIGHT. CALL LIGHT IN REACH.
[2024-03-30 04:44] LABS: Hematocrit 25.2 % (33.0-51.0); Hemoglobin 7.8 g/dL (11.5-16.0); Mean Corpuscular HGB 28.2 pg (26.0-34.0); Mean Corpuscular Volume 91 fL (80-100); Mean Platelet Volume 11.3 fL (9.1-12.4); Platelet Count 121 K/mm3 (150-400); RDW Coefficient Variation 14.9 % (11.7-14.2); RDW Standard Deviation 49.9 fL (35.1-46.3); Red Blood Cell Count 2.77 M/mm3 (3.80-5.20); White Blood Cell Count 2.28 K/mm3 (4.00-11.30)
[2024-03-30 05:01] LABS: Bun/Creatinine Ratio 20.4 (12.0-20.0); Calcium, Blood 8.6 mg/dL (8.5-10.1); Creatinine, Blood 0.93 mg/dL (0.40-1.00); Potassium, Blood 4.1 mmol/L (3.5-5.5)
[2024-03-30 07:26] VITALS: BP 105/76
[2024-03-30 11:29] VITALS: BP 115/62
--- NOTE | 2024-03-30 16:16 | NUR ---
Visited the Pt. the referral of Chaplain Marino. Pt. is awake and sitting in a chair when she welcomes my visit. Facilitated a short life review as we got acquainted. Pt. is pleasant during the visit. Pt. verbalized concern about the healing and treatments for her left foot. Pt. also verbalized that she has support from her son. Pt. displayed evidence of welcoming spiritual care and verbalized how important prayer was in her life. Prayed with Pt. Pt. verbalized gratitude for the spiritual care visit. Pt. displayed evidence of a lightened mood.
[2024-03-30 17:02] VITALS: BP 111/53
[2024-03-30] MEDS ORDERED: Rivaroxaban 10 MG Tab PO SCH (18:00)
--- NOTE | 2024-03-30 18:27 | NUR ---
SHIFT SUMMARY: PT HAS BEEN A&Ox3-4, DIFFICULTY FOLLOWING INSTRUCTIONS AT TIMES, FREQUENTLY REQUESTING PAIN MEDICATIONS FOR C/O BILATERAL FOOT PAIN W/L FOOT BEING THE WORST. PT MEDICATED PER EMAR. PT DENIES SOB, O2 SATS >93%, 2 L/MIN VIA NC BUT PT FREQUENTLY FOUND W/OXYGEN TUBING OUT OF HER NOSE AND REAPPLIED. PT DENIES CP, SR ON MONITOR W/RATE 90s. L PEDAL PULSE FAINT TO PALPATION, VERIFIED W/DOPPLER, EXTREMITY IS WARM TO TOUCH, TOVEY TO BEDSIDE TODAY AND REPORTS IMPROVED COLORATION AND BLOOD FLOW COMPARED TO LAST ASSESSMENT. WOUND CARE PERFORMED THIS SHIFT AND EXTREMITY WRAPPED IN GAUZE, KNEE HIGH WALKING BOOT APPLIED PER ORDERS, PT WORKS W/OT BUT HAS DIFFICULTY FOLLOWING INSTRUCTION DESPITE OT's DIFFERENT APPROACHES TO PROVIDE INSTRUCTION. AT THIS TIME, PT IS RESTING IN BEDSIDE RECLINER, NADN, CALL LIGHT IN REACH. WILL CONTINUE TO MONITOR AND TREAT ACCORDINGLY UNTIL CHANGE OF SHIFT.
--- NOTE | 2024-03-30 20:00 | NUR ---
ASSUMED CARE OF PT AT 1900. REPORT RECEIVED AT BEDSIDE. PT PRESENTS IN BED. SLEEPING. IN NO APPARENT DISTRESS AT THIS TIME. PT HAS REMOVED HER NICOTINE PATCH, AND THE GAUZE DRESSING FROM HER LEFT FOOT. WHEN QUESTIONED WHY SHE HAS REMOVED THESE ITEMS SHE WAS NOT AWARE SHE HAD DONE THIS. WILL REVIEW CHART AND PLAN OF CARE FOR THIS PT.
[2024-03-30 20:01] VITALS: BP 93/63
[2024-03-31 00:33] VITALS: BP 111/53
--- NOTE | 2024-03-31 02:26 | NUR ---
PT HAS BEEN MEDICATED WITH FENTANYL AND NORCO FOR LEFT FOOT PAIN. PT IS ABLE TO REST FOR APPROX 45 MINUTES. STATES SHE DOES NOT RECALL RECEIVING PAIN MEDICATIONS. DID UPDATE PT ON TIMING OF PAIN MEDICATION. HAS BEEN ABLE TO REST SINCE. OF NOTE. PT WAS ON 1-2 LITERS OXYGEN PER NASAL CANNULA. DID TURN OFF OXYGEN FLOW SECONDARY TO PT'S SATURATIONS MID TO UPPER 90'S. SLOWLY AFTER PT WAS ASLEEP SHE TRENDED DOWNWARDS TO 86-88 PERCENT. DID TURN OXYGEN BACK TO 2 L/M.
[2024-03-31 04:00] VITALS: BP 100/63
[2024-03-31 05:10] LABS: Hematocrit 27.4 % (33.0-51.0); Hemoglobin 8.6 g/dL (11.5-16.0); Mean Corpuscular HGB 28.4 pg (26.0-34.0); Mean Corpuscular HGB Conc 31.4 g/dL (31.5-36.5); Mean Corpuscular Volume 90 fL (80-100); Mean Platelet Volume 11.6 fL (9.1-12.4); Platelet Count 117 K/mm3 (150-400); RDW Coefficient Variation 15.2 % (11.7-14.2); RDW Standard Deviation 50.3 fL (35.1-46.3); Red Blood Cell Count 3.03 M/mm3 (3.80-5.20); White Blood Cell Count 2.28 K/mm3 (4.00-11.30)
[2024-03-31 05:30] LABS: Bun/Creatinine Ratio 21.8 (12.0-20.0); Calcium, Blood 8.7 mg/dL (8.5-10.1); Creatinine, Blood 0.92 mg/dL (0.40-1.00); Potassium, Blood 4.5 mmol/L (3.5-5.5)
--- NOTE | 2024-03-31 05:55 | NUR ---
PT HAS BEEN MEDICATED WITH 1 MG DILAUDID FOR COMPLAINTS OF PAIN 8/10 TO HER LEFT FOOT. HAVE KEPT FOOT ELEVATED WITH BED CONTROLLED FOOT LIFT. PT NOTED TO LIKE HAVING LEFT FOOT DRAPED OVER SIDE OF BED. TEACHING DONE WITH PT ON KEEPING FOOT ELEVATED. WILL CONTINUE TO MONITOR PT, AND WILL REPORT OFF TO ONCOMING RN.
[2024-03-31 08:10] VITALS: BP 105/57
[2024-03-31] MEDS ORDERED: Ferrous Sulfate 325 MG Tab PO SCH (09:00)
[2024-03-31 11:55] VITALS: BP 124/70
[2024-03-31] MEDS ORDERED: HYDROmorphone HCl 2 MG Tab PO PRN (12:10)
--- NOTE | 2024-03-31 13:13 | NUR ---
ASSUMED CARE OF PT WHILE PRIMARY RN TO LUNCH BREAK. PT NEDICATED PER EMAR FOR PAIN, CALL LIGHT IN REACH AND VSS.
[2024-03-31 15:19] VITALS: BP 116/63
--- NOTE | 2024-03-31 18:33 | NUR ---
TRANSFER SUMMARY PT TRANSFERED FROM PCU FOR DRY GANGRENE. PT A&O X4. PT NOTED TO BE ASSIST X1. PT TO WEAR A SUGICAL BOOT TO LEFT FOOT. PT IS TO BE HEAL TOUCH WT BEARING ONLY. SKIN ASSESSMENT COMPLETED BY 2 NURSES. PT NOTED TO HAVE ESCAR TO LEFT FOOT AND TOES. SEE UPDATED PICTURES TAKEN FOR MORE DETAIL.
[2024-03-31 19:40] VITALS: BP 116/58
[2024-04-01 03:33] VITALS: BP 131/69
--- NOTE | 2024-04-01 06:07 | NUR ---
NOC SHIFT SUMMARY PTS L FOOT IS VERY PAINFUL BUT SHE IS ABLE TO SLEEP AFTER RECEIVING PAIN MEDS. SON CALLED FOR UPDATE. CALLED HIM BACK BUT HE DIDNT ANSWER. FOOT WRAPPED WITH GAUZE. BED ALARM ON. CALL LIGHT WITHIN REACH.
[2024-04-01 07:31] VITALS: BP 120/64
[2024-04-01 16:04] VITALS: BP 126/76
--- NOTE | 2024-04-01 19:51 | NUR ---
SHIFT SUMMARY: PT A/O X 4, ONE ASSIST FOR TX. PT IS PLEASANT AND COOPERATIVE WITH CARE. PT CONTINUES TO HAVE PAIN TO LLE. MANAGED WITH ALTERNATING ORAL AND IV DILAUDID.
[2024-04-01 20:16] VITALS: BP 138/72
[2024-04-02 01:31] VITALS: BP 146/86
--- NOTE | 2024-04-02 06:21 | NUR ---
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 Is alert and able to make needs known. ADLs have been SBA. pain has been managed with PRN pain management. Powerglide to left upper arm is patent with dressing that is CDI.
[2024-04-02 07:42] VITALS: BP 141/73
[2024-04-02 08:52] LABS: Hematocrit 28.3 % (33.0-51.0); Hemoglobin 8.9 g/dL (11.5-16.0); Mean Corpuscular HGB 28.3 pg (26.0-34.0); Mean Corpuscular HGB Conc 31.4 g/dL (31.5-36.5); Mean Corpuscular Volume 90 fL (80-100); Mean Platelet Volume 11.5 fL (9.1-12.4); Platelet Count 123 K/mm3 (150-400); RDW Coefficient Variation 15.7 % (11.7-14.2); RDW Standard Deviation 50.7 fL (35.1-46.3); Red Blood Cell Count 3.15 M/mm3 (3.80-5.20); White Blood Cell Count 2.97 K/mm3 (4.00-11.30)
[2024-04-02 09:09] LABS: Bun/Creatinine Ratio 17.7 (12.0-20.0); Calcium, Blood 8.7 mg/dL (8.5-10.1); Creatinine, Blood 0.91 mg/dL (0.40-1.00); Potassium, Blood 4.8 mmol/L (3.5-5.5)
[2024-04-02 09:23] LABS: BAND PERCENT MAN 6 % (0-8); BASOPHILS PERCENT MAN 0 % (0-2); EOSINOPHILS ABSOLUTE MAN 0.05 K/mm3 (0.00-0.68); EOSINOPHILS PERCENT MAN 2 % (0-6); LYMPHOCYTES ABSOLUTE MAN 0.62 K/mm3 (0.84-5.20); LYMPHOCYTES PERCENT MAN 21 % (21-46); MONOCYTES ABSOLUTE MAN 0.08 K/mm3 (0.16-1.47); MONOCYTES PERCENT MAN 3 % (4-13); MYELOCYTE ABSOLUTE MAN 0.08 K/mm3 (0.00-0.00); MYELOCYTE PERCENT MAN 3 % (0-0); SEG NEUTROPHILS PERCENT MAN 65 % (41-73); TOTAL CELLS COUNTED 100
[2024-04-02 16:07] VITALS: BP 125/78
--- NOTE | 2024-04-02 19:00 | NUR ---
SHIFT SUMMARY PT A&OX4, VSS, AMB W/ SBA, TOLERATING PO, VOIDING, AND PAIN MANAGED PER EMAR. PT C/O PAIN T/O SHIFT. NO ACUTE CHANGES. CALL LIGHT WITHIN REACH AND PT ABLE TO MAKE NEEDS KNOWN.
[2024-04-02 19:11] VITALS: BP 135/72
[2024-04-03 03:33] VITALS: BP 129/60
--- NOTE | 2024-04-03 06:33 | NUR ---
SUMMARY: PT A/OX4, CALLS APPROPRIATELY TO SPECIFY NEEDS AND IS PLEASANT AND COOPERATIVE W/CARE. SHE'S UP W/SBA TO BSC D/T HEEL TOUCH OF L.FOOT. GANGRENOUS DISCOLORATION W/NECROTIC APPEARING SCABBING OBSERVED. FOOT BEGAN BLEEDING DURING T/F BACK TO BED SO WOUND WAS CLEANSED W/BETADINE AND DSD DRESSING APPLIED PER 'S RECCOMMENDATIONS. SHE WAS MEDICATED PRN W/DILAUDID AND TYLENOL FOR TOLERABLE RELIEF OF PAIN. VSS/AFEBRILE AND NO ACUTE CHANGES. PLAN FOR D/C TO SNF. WCTM AND REPORT TO DAY RN.
[2024-04-03 07:59] VITALS: BP 75/51
[2024-04-03 08:25] VITALS: BP 103/55
[2024-04-03] MEDS ORDERED: HYDROcodone 5-APAP 325 TAB PO PRN (10:40)
[2024-04-03 15:05] VITALS: BP 114/60
--- NOTE | 2024-04-03 18:16 | NUR ---
SHIFT SUMMARY PT A&OX4, VSS, AMB W/ SBA, TOLERATING PO, VOIDING, AND PAIN MANAGED PER EMAR. IV DILAUDID D/C AND PT PAIN MANAGED W/ PO NORCO. PT WORKED W/ OCCUPATIONAL THERAPY THIS SHIFT, SEE THERAPY NOTE. WOUND CARE COMPLETED PER ORDER. PT REPORTS LOSS OF FEELING IN VARIOUS SPOTS OF L FOOT, STRONG PULSE PRESENT. NO OTHER ACUTE CHANGES THIS SHIFT. PLAN FOR POSSIBLE D/C TOMORROW TO [place]. CALL LIGHT WITHIN REACH AND PT ABLE TO MAKE NEEDS KNOWN.
[2024-04-03 19:19] VITALS: BP 89/51
--- NOTE | 2024-04-03 21:45 | NUR ---
ASSUMED CARE OF PT - PT IS CURRENTLY SLEEPING. RESPIRATIONS EVEN AND UNLABORED. CALL LIGHT WITHIN REACH. BED IN LOW POSITION.
[2024-04-04 03:59] VITALS: BP 118/68
--- NOTE | 2024-04-04 05:04 | NUR ---
SHIFT SUMMARY - NO ACUTE CHANGES THROUGHOUT THE SHIFT. PT AWAKE THIS AM REQUESTING PAIN MEDICATION FOR HER FEET - SEE EMAR FOR FOLLOW UP. PT UP TO BSC WITH STAND AND PIVOT, PROTECTING HER LEFT FOOT. PT REQUESTING COFFEE THIS AM - PROVIDED. WILL CONTINUE TO MONITOR UNTIL AM SHIFT CHANGE. CALL LIGHT WITHIN REACH. BED IN LOW POSITION. FLUIDS AT BEDSIDE.
--- NOTE | 2024-04-04 05:12 | NUR ---
PT REPORTS HER PAIN LEVEL TO HER FEET CONTINUES AT 8/10 LEVEL OF PAIN - REQUESTED PT WAIT FOR AN ADDITIONAL 1/2 HOUR AND IF HER PAIN HASN'T IMPROVED I WILL GIVE HER A DIFFERENT PAIN PILL - PT VERBALIZED UNDERSTANDING.
[2024-04-04 05:31] LABS: Hemoglobin 8.6 g/dL (11.5-16.0); Mean Corpuscular HGB Conc 31.9 g/dL (31.5-36.5); Mean Corpuscular Volume 91 fL (80-100); Platelet Count 107 K/mm3 (150-400); RDW Coefficient Variation 16.1 % (11.7-14.2); RDW Standard Deviation 53.4 fL (35.1-46.3); Red Blood Cell Count 2.97 M/mm3 (3.80-5.20); White Blood Cell Count 2.62 K/mm3 (4.00-11.30)
--- NOTE | 2024-04-04 05:35 | NUR ---
PT IS CURRENTLY SLEEPING - RESPIRATIONS EVEN AND UNLABORED. WILL CONTINUE TO MONITOR UNTIL AM SHIFT CHANGE.
[2024-04-04 05:50] LABS: BAND PERCENT MAN 4 % (0-8); BASOPHILS ABSOLUTE MAN 0.02 K/mm3 (0.00-0.23); BASOPHILS PERCENT MAN 1 % (0-2); EOSINOPHILS PERCENT MAN 4 % (0-6); LYMPHOCYTES ABSOLUTE MAN 0.75 K/mm3 (0.84-5.20); LYMPHOCYTES PERCENT MAN 29 % (21-46); METAMYELOCYTE ABSOLUTE MAN 0.13 K/mm3 (0.00-0.00); METAMYELOCYTE PERCENT MAN 5 % (0-0); MONOCYTES ABSOLUTE MAN 0.07 K/mm3 (0.16-1.47); MONOCYTES PERCENT MAN 3 % (4-13); MYELOCYTE PERCENT MAN 4 % (0-0); NEUTROPHILS ABSOLUTE MAN 1.41 K/mm3 (1.96-9.15); SEG NEUTROPHILS PERCENT MAN 50 % (41-73); TOTAL CELLS COUNTED 100
[2024-04-04 06:14] LABS: Creatinine, Blood 1.22 mg/dL (0.40-1.00); Potassium, Blood 4.6 mmol/L (3.5-5.5)
[2024-04-04 07:18] VITALS: BP 105/59
[2024-04-04] MEDS ORDERED: BISA10S PR (10:23)
[2024-04-04] MEDS ORDERED: ACET325 PO (10:23)
[2024-04-04] MEDS ORDERED: DOCU100 PO (10:24)
[2024-04-04] MEDS ORDERED: FERSU300 PO (10:24)
[2024-04-04] MEDS ORDERED: CEFEPIME HCL1 G1 IV (10:24)
[2024-04-04] MEDS ORDERED: HYDMOR2 PO (10:25)
[2024-04-04] MEDS ORDERED: Nicoderm Cq1 EAC1 TOP (10:26)
[2024-04-04] MEDS ORDERED: SENN187 PO (10:27)
[2024-04-04] MEDS ORDERED: XARELTO20 MG PO (10:27)
[2024-04-04 10:29] LABS: Influenza A, PCR NEGATIVE (NEGATIVE); Influenza B, PCR NEGATIVE (NEGATIVE); Resp Syncytial Virus, PCR NEGATIVE (NEGATIVE)
[2024-04-04 10:30] LABS: SARS-Cov-2 (COVID-19) PCR, MMC POSITIVE (NEGATIVE)
--- NOTE | 2024-04-04 14:53 | NUR ---
SHIFT SUMMARY Patient alert & oriented x4. Reports pain is uncontrolled, alternating [place] & Dilaudid PO. Gets OOB w/ staff to use BSC, weakness noted. Discharge to SNF held d/t positive COVID test. VSS. Will continue plan of care.
[2024-04-04 16:00] VITALS: BP 96/56
[2024-04-04 19:52] VITALS: BP 93/53
[2024-04-05 05:23] LABS: Hematocrit 29.6 % (33.0-51.0); Hemoglobin 9.1 g/dL (11.5-16.0); Mean Corpuscular HGB 28.2 pg (26.0-34.0); Mean Corpuscular HGB Conc 30.7 g/dL (31.5-36.5); Mean Corpuscular Volume 92 fL (80-100); Mean Platelet Volume 11.6 fL (9.1-12.4); Platelet Count 109 K/mm3 (150-400); RDW Coefficient Variation 16.2 % (11.7-14.2); RDW Standard Deviation 54.9 fL (35.1-46.3); Red Blood Cell Count 3.23 M/mm3 (3.80-5.20); White Blood Cell Count 2.43 K/mm3 (4.00-11.30)
[2024-04-05 05:47] VITALS: BP 99/54
[2024-04-05 05:49] LABS: Bun/Creatinine Ratio 16.5 (12.0-20.0); Calcium, Blood 7.6 mg/dL (8.5-10.1); Creatinine, Blood 1.39 mg/dL (0.40-1.00); Potassium, Blood 4.9 mmol/L (3.5-5.5)
[2024-04-05 05:50] LABS: BAND PERCENT MAN 8 % (0-8); BASOPHILS ABSOLUTE MAN 0.04 K/mm3 (0.00-0.23); BASOPHILS PERCENT MAN 2 % (0-2); EOSINOPHILS ABSOLUTE MAN 0.09 K/mm3 (0.00-0.68); EOSINOPHILS PERCENT MAN 4 % (0-6); LYMPHOCYTES % ATYPICAL MANUAL 2 % (0-0); LYMPHOCYTES ABSOLUTE MAN 0.89 K/mm3 (0.84-5.20); LYMPHOCYTES PERCENT MAN 35 % (21-46); METAMYELOCYTE ABSOLUTE MAN 0.02 K/mm3 (0.00-0.00); METAMYELOCYTE PERCENT MAN 1 % (0-0); MONOCYTES ABSOLUTE MAN 0.12 K/mm3 (0.16-1.47); MONOCYTES PERCENT MAN 5 % (4-13); MYELOCYTE ABSOLUTE MAN 0.07 K/mm3 (0.00-0.00); MYELOCYTE PERCENT MAN 3 % (0-0); NEUTROPHILS ABSOLUTE MAN 1.16 K/mm3 (1.96-9.15); SEG NEUTROPHILS PERCENT MAN 40 % (41-73); TOTAL CELLS COUNTED 100
--- NOTE | 2024-04-05 06:25 | NUR ---
SHIFT SUMMARY: PATIENT FULLY ORIENTED, COOPERATIVE. TOOK NORCO FOR PAIN. IV ANTIBIOTICS ADMINISTERED. COVID PRECAUTIONS MAINTAINED. PATIENT SLEPT THROUGH NIGHT.
[2024-04-05 07:53] VITALS: BP 84/55
[2024-04-05 16:42] VITALS: BP 91/54
--- NOTE | 2024-04-05 16:48 | NUR ---
NO ACUTE CHANGES THIS SHIFT. WOUND CARE COMPLETED ORDERED. TREATED PAIN PER EMAR. PT IS ALERT AND ORIENTED X4 AND ABLE TO MAKE NEEDS KNOWN, 3L NC
[2024-04-05 18:34] VITALS: BP 106/54
--- NOTE | 2024-04-05 18:41 | NUR ---
PT C/O HEADACHE ASSESSED O2 PT SAT 79% AFTER SHOWER. INCREASED O2 AND NOTIFIED RT. PT INCREASED AND STABILIZED AT 92% ON 3L NC.
[2024-04-05 19:50] VITALS: BP 107/60
[2024-04-06 05:16] VITALS: BP 90/48
[2024-04-06 05:24] LABS: Hematocrit 30.6 % (33.0-51.0); Hemoglobin 9.2 g/dL (11.5-16.0); Mean Corpuscular HGB 27.7 pg (26.0-34.0); Mean Corpuscular HGB Conc 30.1 g/dL (31.5-36.5); Mean Corpuscular Volume 92 fL (80-100); Platelet Count 101 K/mm3 (150-400); RDW Coefficient Variation 16.4 % (11.7-14.2); RDW Standard Deviation 55.8 fL (35.1-46.3); Red Blood Cell Count 3.32 M/mm3 (3.80-5.20); White Blood Cell Count 2.97 K/mm3 (4.00-11.30)
--- NOTE | 2024-04-06 05:52 | NUR ---
SHIFT SUMMARY: PATIENT ORIENTED, COOPERATIVE. WALKED TO BATHROOM. STILL IN COVID PRECAUTIONS. WALKED TO BATHROOM WITH ONE ASSIST. PAIN MEDICATIONS GIVEN NEEDED.
[2024-04-06 05:53] LABS: Bun/Creatinine Ratio 16.7 (12.0-20.0); Calcium, Blood 7.8 mg/dL (8.5-10.1); Creatinine, Blood 1.68 mg/dL (0.40-1.00); Potassium, Blood 4.7 mmol/L (3.5-5.5)
[2024-04-06 06:06] LABS: BAND PERCENT MAN 5 % (0-8); BASOPHILS PERCENT MAN 0 % (0-2); EOSINOPHILS ABSOLUTE MAN 0.05 K/mm3 (0.00-0.68); EOSINOPHILS PERCENT MAN 2 % (0-6); LYMPHOCYTES % ATYPICAL MANUAL 1 % (0-0); LYMPHOCYTES ABSOLUTE MAN 1.09 K/mm3 (0.84-5.20); LYMPHOCYTES PERCENT MAN 36 % (21-46); METAMYELOCYTE ABSOLUTE MAN 0.17 K/mm3 (0.00-0.00); METAMYELOCYTE PERCENT MAN 6 % (0-0); MONOCYTES ABSOLUTE MAN 0.08 K/mm3 (0.16-1.47); MONOCYTES PERCENT MAN 3 % (4-13); MYELOCYTE ABSOLUTE MAN 0.05 K/mm3 (0.00-0.00); MYELOCYTE PERCENT MAN 2 % (0-0); NEUTROPHILS ABSOLUTE MAN 1.48 K/mm3 (1.96-9.15); SEG NEUTROPHILS PERCENT MAN 45 % (41-73); TOTAL CELLS COUNTED 100
[2024-04-06 07:36] VITALS: BP 120/61
--- NOTE | 2024-04-06 08:10 | NUR ---
MD CALL PT ON ROOM AIR WITH PULSE OX 77% WHEN I ENTERED ROOM THIS AM. SHE DOES NOT REMEMBER REMOVING OXYGEN, BUT IT WAS SET AT 3.5L NC. O2 SAT UP TO 92% ON THE 3.5 L NC AND PT REPOSITIONING/BREATHING. DR BERRIOS AND Yessica INFORMED AND CONTINUOUS PULSE OX ORDERED. ORDER ENTERED INTO [employer].
--- NOTE | 2024-04-06 13:45 | NUR ---
MD CALL MS JARA IS MORE CONFUSED THAN EARLIER TODAY. SHE HAS RAISED VOICE AND EXPRESSING ANGRY WORDS. SHE SAID SHE FEELS IRRITATED. SHE IS UNSTEADY, WALKING TO THE BATHROOM AND REMOVING OXYGEN. BACK ON EDGE OF BED, KEEPS TRYING TO STAND UP TO "GO TO BED". ANSWERS TO QUESTIONS ARE NOT COHERENT WITH QUESTIONS. DR VAZQUEZ NOTIFIED OF CHANGE IN CONDITION.
[2024-04-06 13:50] VITALS: BP 105/71
--- NOTE | 2024-04-06 15:16 | NUR ---
THIS RN PROVIDING BREAK COVERAGE FOR PRIMARY RN. RT TO BEDSIDE TO PERFORM ABG.
[2024-04-06 15:22] LABS: PCO2 Arterial 40.5 mmHg (35-45); PO2 Arterial 63.9 mmHg (80-100); pH Blood Arterial 7.33 (7.35-7.45)
--- NOTE | 2024-04-06 15:32 | NUR ---
SHIFT SUMMARY MS JARA HAS DEMONSTRATED INCREASING CONFUSION THROUGHOUT THE DAY. SHE WAS NOT ABLE TO TELL ME THE YEAR OR THE NAME OF THE HOSPITAL ON INITIAL EVALUATION BUT WAS ABLE TO DESCRIBE WHY SHE WAS IN THE HOSPITAL AND HAVE A CONVERSATION ABOUT HER CARE. AFTER LUNCH SHE WAS SIGNIFICANTLY MORE CONFUSED. SHE WAS GETTING UP OUT OF BED SAYING THAT SHE WAS GOING "TO BED", UNABLE TO FOLLOW INSTRUCTIONS TO LIE DOWN AND ELEVATE FEET, SHOWING IRRITATION AND ANNOYANCE TO BE ASKED TO GET INTO BED. SHE PULLED OFF HER OXYGEN A FEW TIMES, WALKED INTO THE BATHROOM WITH A VERY UNSTEADY GAIT AND SAID THAT SHE DID NOT WANT ANY HELP. SHE WAS HOLDING ONTO FURNITURE FOR GAIT STEADYNESS. INCREASED OXYGEN NEEDS THROUGHOUT THE DAY. C/O CONSTANT FOOT PAIN. SHE SAID THAT DILAUDID HELPS TO CONTROL THE PAIN. SHE HAS REFUSED TO HAVE HER FOOT DRESSING REDONE TODAY SO FAR. SHE WILL ALLOW ME TO ELEVATE IT ON PILLOWS. SHE HAS REFUSED TO ALLOW ME TO PUT THE POST OP SHOE ON BEFORE SHE WALKS. DR BERRIOS WAS UPDATED ON PATIENT STATUS AND EVENTS. ABG DONE BY [facility] OXYGEN PUT ON HUMIDIFIER. JIMBO RESTRAINT VEST APPLIED AT 1410HRS AND RN SURGERY ICU SET UP IN ROOM FOR PT SAFETY. DISCRETE VM LEFT FOR HER SON TO CALL TO MEDICAL UNIT.
[2024-04-06 19:33] VITALS: BP 91/47
--- NOTE | 2024-04-06 22:21 | NUR ---
2114 ENTERED PT ROOM TO FIND AVASURE ALARMING, PT SITTING ON EOB ATTEMPTING TO STAND. PT INSTRUCTED TO STAY IN BED BUT WOULD NOT LISTEN TO COMMANDS. PT STOOD UP WITH ASSIST, VERY UNSTEADY. ATTEMPTED TO GET PT TO BSC PT STATED SHE NEEDED TO VOID HOWEVER PT CONTINUED TO TRY TO AMBULATE PAST COMMODE, PUSHING AGAINST RN, "LET ME GO". PT ATTEMPTED TO HIT RN. MANAGER STRATEGIC SOURCING AND ANOTHER RN CALLED TO ROOM FOR MORE ASSISTANCE. PT THEN ASSISTED BACK TO BED, INCONTINENCE CARE PROVIDED, AND JIMBO VEST RESECURED. PT THEN TRANSFERRED TO SCU ROOM 350, BEDSIDE REPORT GIVEN TO QUINCY DRIVER.
[2024-04-06] MEDS ORDERED: HYDROmorphone HCl/Pf 1MG SYR IV PRN (22:30)
[2024-04-06] MEDS ORDERED: OLANZapine 10 MG Vial IM ONE (22:35)
[2024-04-07 02:49] VITALS: BP 113/61
[2024-04-07 06:24] LABS: Hematocrit 29.2 % (33.0-51.0); Hemoglobin 8.9 g/dL (11.5-16.0); Mean Corpuscular HGB Conc 30.5 g/dL (31.5-36.5); Mean Corpuscular Volume 92 fL (80-100); Mean Platelet Volume 11.5 fL (9.1-12.4); Platelet Count 90 K/mm3 (150-400); RDW Coefficient Variation 16.4 % (11.7-14.2); RDW Standard Deviation 55.8 fL (35.1-46.3); Red Blood Cell Count 3.18 M/mm3 (3.80-5.20)
--- NOTE | 2024-04-07 06:28 | NUR ---
TX TRANSFERED TO ROOM 350 AT APROX 2150. PT RESPONDING TO ALL QUESTIONS SAYING "LEAVE ME ALONE" PT CONTINUING TO ATTEMPT OOB PUSHING AGAINST STAFF WHEN IN CLOSE PROXIMITY. PT REFUSED TO TAKE HER ORAL MEDICATIONS. PT WOULD ENDORSE BEING IN PAIN BUT REFUSED ALL ORAL MEDICATIONS. PT WAS IN JIMBO UPON ARRIVAL. ATTEMPT TO REDIRECT PT BACK INTO BED UNSUCCESSFUL. APPLIED SOFT WRIST/LEG RESTRAINTS AT 2210. CALL TO VASCULAR SONOGRAPHER/DR CRANE AT 2225--NEW ORDER FOR SOFT RESTRAINTS, IV DILAUDID 1-2MG Q6PRN, AND ONE TIME ZYPREXA. GAVE PT PAIN MED FIRST. PT REMAIN AGITATED BUT CALMED AND BECAME SLEEPY. DID NOT GIVE THE ONE TIME ZYPREXA DUE TO CONCERN FOR OVER SEDATION. PT SLEPT ON/OFF T/O THE NIGHT. WHEN ATTEMPTING TO REPOSITION, PROVIDE CARE, CHANGES SOILED BRIEF--PT WOULD BECOME AGITATED WITH VERBAL AND PHYSICAL AGGRESSION--PUSHING, PULLING, GRABING. RESTRAINTS ASSESSED EVERY TWO HOURS; CIRCULATION CHECKED, AND PT NEEDS/COMFORT ASSESSED.
[2024-04-07 06:49] LABS: Bun/Creatinine Ratio 19.4 (12.0-20.0); Calcium, Blood 7.9 mg/dL (8.5-10.1); Creatinine, Blood 1.44 mg/dL (0.40-1.00); Potassium, Blood 5.2 mmol/L (3.5-5.5)
[2024-04-07 07:21] VITALS: BP 105/61
--- NOTE | 2024-04-07 10:03 | NUR ---
PATIENT SITTING AT SIDE OF BED IN 3 POINT RESTRAINTS AT THIS TIME. SCRATCHED NURSE WHEN PERFORMING ASSESSMENT, YELLING AT STAFF MEMBERS TO LEAVE HER ALONE. DECLINING TO TAKE ORAL MEDICATIONS, STATING SHE DOES'T WANT ANYTHING. EDUCATION PROVIDED REGARDING NOT TAKING ANTICOAGULANTS AND RISKS INVOLVED, PATIENT'S RESPONSE WAS "I DON'T CARE, LEAVE ME ALONE, I DON'T WANT ANYTHING". IV PAIN MEDICATION PROVIDED WELL IV ABX. PLACED BACK IN 4 POINT RESTRAINTS BECAUSE PATIENT CONTINUOUSLY REMOVING OXYGEN AND ATTEMPTING TO STAND OFF BED. PATIENT FIGHTING RESTRAINTS, EDUCATED ON QUALIFICATIONS FOR REMOVAL, YELLED AT STAFF, I DON'T CARE AND ATTEMPTED TO HIT NURSE. TELE MONITORING IN PLACE.
--- NOTE | 2024-04-07 11:30 | NUR ---
COVERING FOR PRIMARY RN. MEPILEX APPLIED TO COCCYX. PICTURE TAKEN AND PLACED IN CHART. PURPLE/RED IN COLOR, SMALL BLISTER, AND SLOUGH SKIN NOTED.
--- NOTE | 2024-04-07 14:35 | NUR ---
RECEIVED CALL FROM SON. WANTED UPDATE. GAVE MEDICAL UPDATE, SON IS UPSET THAT PT IS IN RESTRAINTS, EXPLAINED THE REASONING FOR THIS INTERVENTION. SON STATED "TAKE HER OUT OF THOSE GODDAMN RESTRAINTS NOW! SHE IS BASICALLY A 89 YEAR OLD FRAIL LADY, YOU CAN TAKE A PUNCH TO THE FACE FROM HER, YOU'LL BE FINE" WAS EXPLAINED THAT THAT BEHAVIOR IS UNACCEPTABLE IN ANY STAGE OF LIFE AND THAT UNTIL HER BEHAVIORS RETURNED TO CALM AND COOPERATIVE I WOULD NOT BE REMOVING THE RESTRAINTS FOR SAFETY REASONS. SON AGAIN DEMANDED SHE BE LET OUT OF RESTRAINTS STATING THAT SHE IS ACTING THIS WAY IN AN ATTEMPT TO BE DISCHARGED. PATIENT HAS MADE NO SUCH STATEMENTS THAT SHE WOULD LIKE TO BE DISCHARGED, ONLY STATING, "LEAVE ME ALONE" AND HITTING, SCRATCHING AND PULLING AT LINES AND IV'S WHEN RESTRAINTS LOOSENED PERIODICALLY. SON IS ALSO UPSET THAT PATIENT TESTED COVID + AND STATES THAT NOW HE HAS TESTED POSITIVE ALSO. RECOMMENDED THAT HE STAY OUT OF THE HOSPITAL FOR A TIME. SON STATED THAT SHE PROBABLY GOT IT FROM THIS RN....PROMPTLY REDIRECTED THE CONVERSATION AND ENDED THE CALL WITH SON.
[2024-04-07 16:43] VITALS: BP 126/76
[2024-04-07] MEDS ORDERED: NS 1,000 ML IV SCH (17:30)
--- NOTE | 2024-04-07 18:01 | NUR ---
SHIFT SUMMARY PATIENT HITTING, PINCHING AND SCRATCHING STAFF WHEN RESTRAINTS RELEASED, ALSO ATTEMPTING TO PULL OXYGEN OFF, PULL AT IV AND BED EXIT. MAKING STATEMENTS THAT SHE IS GOING TO PUNCH RN, SO BENJAMIN, FREQUENTLY YELLING OUT, NOT REDIRECTABLE. ASKED IF SHE WANTED INFORMATION GIVEN TO DAUGHTER AND PATIENT STATED "MY DAUGHTER CAN GO TO HELL, WHAT DO YOU THINK". WOUND CARE PERFORMED TO LEFT FOOT. TOES RED, BLACK AND HARD. SPOT ON TOP OF FOOT WELL BOTTOM OF FOOT IS BLACK AND HARD, PATIENT STATES IT IS PAINFUL. MEDICATED WITH DILAUDED PER MAR, UNABLE TO REASSESS ACCURATELY PATIENT JUST STATES "LEAVE ME ALONE" AND "GET OFF OF ME, GET OUT". PATIENT DOES SEEM TO BE MORE CALM AFTER MEDICATION. CONTINOUS PULSE OX IN PLACE. MEPILEX PLACED TO BUTTOCK, PICS IN CHART. INCONTINENT THIS SHIFT, NOT COOPERATIVE WITH CARES. VIDEO MONITORING IN PLACE. CALL LIGHT IN REACH. DECLINING ALL PO MEDICATIONS. IV FLUIDS STARTED. CARES ONGOING.
[2024-04-07] MEDS ORDERED: OLANZapine 10 MG Vial IM PRN (18:30)
[2024-04-07 20:02] VITALS: BP 91/63
[2024-04-08 02:32] VITALS: BP 138/70
--- NOTE | 2024-04-08 05:45 | NUR ---
PIPE OUT WORKER SUMMARY PT CONTINUES TO EXHIBIT VERBAL AND PHYSICAL AGGRESSION WITH STAFF. PT ANSWERS ALL QUESTIONS BY YELLING "NO" "GET OUT OF HERE" OR "LEAVE ME ALONE" RESTRAINT ASSESSMENT COMPLETE EVERY 2 HOURS. WHEN RESTRAINTS LOOSENED PT WOULD PULL. WHEN TAKEN OUT OF RESTRAINTS FOR REPOSITIONING WOULD SWING, HIT, GRAB, SCRATCH, OR PINCH. POWER GLIDE DRESSING CHANNGED AND DATED. PHONE CALL FROM PT DAUGHTER AT START OF SHIFT. WHEN ASKED PT FOR PERMISSION TO SPEAK WITH HER DAUGHTER PT YELLED, "NO" INFORMED DAUGHTER THAT SHE WAS NOT ON PT'S RELEASE OF INFORMATION. DAUGHTER STATED IN PAST SHE HAS ALWAYS BEEN ON RELEASE AND WOULD BE THE ONE TO HANDLE PT AFFAIRS. INSTRUCTED DAUGHTER THAT PT'S SON IS LISTED; HE CAN CALL AND RELAY INFORMATION. DAUGHTER LIVES IN [place]. SON IS LOCAL. DAUGHTER EXPRESSED CONCERN THAT BROTHER IS SOMETIME UNREASONABLE AND VOLATILE. DAUGHTER'S NAME IS SINCERE ESTEVEZ [phone].
[2024-04-08 05:55] LABS: Bun/Creatinine Ratio 20.5 (12.0-20.0); Calcium, Blood 7.7 mg/dL (8.5-10.1); Creatinine, Blood 1.12 mg/dL (0.40-1.00); Potassium, Blood 4.4 mmol/L (3.5-5.5)
[2024-04-08 08:47] VITALS: BP 140/69
--- NOTE | 2024-04-08 08:59 | NUR ---
PATIENT REFUSING ALL ORAL MEDICATIONS, SHAKING HER HEAD YELLING NO. ATTEMPTED SEVERAL TIMES, EDUCATION PROVIDED. OUTCOME THE SAME.
--- NOTE | 2024-04-08 11:57 | NUR ---
GIVEN DOSE OF ZYPREXA PRE CT SCAN. PATIENT CONTINUES TO BE IN RESTRAINTS, CONTINUING WITH BEHAVIORS, REPORTS ANALYSIS MANAGER MADE AWARE.
[2024-04-08 16:09] VITALS: BP 145/84
--- NOTE | 2024-04-08 17:51 | NUR ---
SHIFT SUMMARY PATIENT REMAINS IN 4 POINT RESTRAINTS FOR BEHAVIORS, PINCHING, HITTING, PULLING AT OXYGEN, ATTEMPTING TO PULL POWERGLIDE, YELLING TO LEAVE HER ALONE WHEN ASKED ANY QUESTION AND AT EACH INTERACTION. RESTRAINTS RELEASED AT EACH APPROPRIATE INTERVAL AND PRN. CONTINUES ON ISOLATION PRECAUTIONS. WENT TO CT AND HAD CHEST X RAY, RESULTS IN SYSTEM. SON CALLED FOR UPDATE THIS SHIFT, CHARGE NURSE TOOK CALL. CONTINUES TO DECLINE ALL MEALS AND ALL ORAL MEDICATIONS. CONTINUOUS PULSE OX IN PLACE. ON 4 LITERS NC. CALL LIGHT IN REACH. CARES ONGOING.
[2024-04-08 20:05] VITALS: BP 148/68
[2024-04-09 02:50] VITALS: BP 154/103
[2024-04-09] MEDS ORDERED: Lactated Ringer's 1,000 ML IV SCH (03:00)
[2024-04-09 05:38] LABS: BASOPHILS ABSOLUTE AUTO 0.01 K/mm3 (0.00-0.23); BASOPHILS PERCENT AUTO 0 % (0-2); EOSINOPHILS ABSOLUTE AUTO 0.02 K/mm3 (0.00-0.68); EOSINOPHILS PERCENT AUTO 1 % (0-6); Hematocrit 30.1 % (33.0-51.0); Hemoglobin 9.4 g/dL (11.5-16.0); IMMATURE GRAN ABSOLUTE AUTO 0.09 K/mm3 (0.00-0.10); IMMATURE GRAN PERCENT AUTO 3 % (0-1); LYMPHOCYTES ABSOLUTE AUTO 0.51 K/mm3 (0.84-5.20); LYMPHOCYTES PERCENT AUTO 18 % (21-46); MONOCYTES ABSOLUTE AUTO 0.32 K/mm3 (0.16-1.47); MONOCYTES PERCENT AUTO 12 % (4-13); Mean Corpuscular HGB Conc 31.2 g/dL (31.5-36.5); Mean Corpuscular Volume 90 fL (80-100); Mean Platelet Volume 11.5 fL (9.1-12.4); NEUTROPHILS ABSOLUTE AUTO 1.83 K/mm3 (1.96-9.15); NEUTROPHILS PERCENT AUTO 66 % (41-73); Platelet Count 90 K/mm3 (150-400); RDW Coefficient Variation 15.9 % (11.7-14.2); RDW Standard Deviation 52.1 fL (35.1-46.3); Red Blood Cell Count 3.36 M/mm3 (3.80-5.20); White Blood Cell Count 2.78 K/mm3 (4.00-11.30)
--- NOTE | 2024-04-09 05:48 | NUR ---
BIOINFORMATICIAN SUMMARY STARTED SHIFT WITH PT CONT W/SOFT RESTRAINTS X4 EXTREMITIES. PT MENTATION ALTERED AND RESPONDS TO ALL QUESTIOS SHOUTING "NO" AND "LEAVE ME ALONE" WHEN PROVIDING DIRECT CARE AND ASSESSMENT--PT AGITATES AND PULLS ON RESTRAINTS. RESTRAINT ORDER RENEWED AT 2230. PT IS REFUSING ALL ORAL INTAKE. ATTEMPTED TO ADMINISTER NIGHT MEDS BY CRUSHING AND PLACING IN APPLESAUCE. PT AGITATED AND REFUSED TO TAKE MEDICATIONS. PT HAS NOT TAKEN BEDTIME/2100 MEDS FOR THREE NIGHTS. CALL TO HEAD AND NECK SURGEON/DR RUSSO. ADVISED OF CONCERN FOR NO ORAL INTAKE. PT HR TRENDING UP AND HAS BEEN TACHY IN LOW 100'S. NEW ORDER FOR 1X LR. ALSO ADVISED OF NO BLOOD THINNERS. NO NEW ORDER AT THIS TIME. PT WAS WAKEFUL T/O THE NIGHT SHOUTING OUT "OW" , 'NO"; WHEN ASKED PT WOULD NOT RESPOND. PT WAS RESISTIVE TO CARE. PUREWIC PLACED T/O THE NIGHT. PT HAVING SMALL BOWEL SMEARS AND MAY BE CONSTIPATED. DISCONTINUED BILATERAL LEG RESTRAINTS AT APROX 0430; PT DOING WELL AND NOT ATTEMPTING OOB. PT HAS CAMERA IN THE ROOM FOR 24/HR SUPERVISION. RESTRAINT ASSESSMENTS COMPLETE Q2 HOURS, COMFORT AND NEEDS ASSESSED. NUTRITION/FLUIDS OFFERED. CALL LIGHT IN REACH.
[2024-04-09 06:10] LABS: BAND PERCENT MAN 2 % (0-8); BASOPHILS PERCENT MAN 0 % (0-2); EOSINOPHILS ABSOLUTE MAN 0.02 K/mm3 (0.00-0.68); EOSINOPHILS PERCENT MAN 1 % (0-6); LYMPHOCYTES ABSOLUTE MAN 0.25 K/mm3 (0.84-5.20); LYMPHOCYTES PERCENT MAN 9 % (21-46); METAMYELOCYTE ABSOLUTE MAN 0.02 K/mm3 (0.00-0.00); METAMYELOCYTE PERCENT MAN 1 % (0-0); MONOCYTES ABSOLUTE MAN 0.08 K/mm3 (0.16-1.47); MONOCYTES PERCENT MAN 3 % (4-13); MYELOCYTE ABSOLUTE MAN 0.02 K/mm3 (0.00-0.00); MYELOCYTE PERCENT MAN 1 % (0-0); NEUTROPHILS ABSOLUTE MAN 2.36 K/mm3 (1.96-9.15); SEG NEUTROPHILS PERCENT MAN 83 % (41-73); TOTAL CELLS COUNTED 100
[2024-04-09 06:11] LABS: Albumin, Blood 2.4 g/dL (3.4-5.0); Anion Gap 12 mmol/L (3-11); Blood Urea Nitrogen 20 mg/dL (8-24); CO2, Blood 22 mmol/L (21-32); Calcium, Blood 8.2 mg/dL (8.5-10.1); Chloride, Blood 113 mmol/L (98-108); Creatinine, Blood 1.11 mg/dL (0.40-1.00); Glomerular Filtration Rate 54 (60-); Glucose, Blood 89 mg/dL (70-99); Magnesium, Blood 1.6 mg/dL (1.6-2.4); Phosphorus, Blood 1.8 mg/dL (2.5-4.9); Potassium, Blood 3.8 mmol/L (3.5-5.5); Sodium, Blood 143 mmol/L (136-145)
[2024-04-09 07:25] VITALS: BP 151/77
--- NOTE | 2024-04-09 07:36 | NUR ---
PT HAS EXTRA LARGE BOWEL MOVEMENT; BLACK TAR IN COLOR, PUDDING CONSISTENCY. CALL TO WIRELESS CONSULTANT/DR RUSSO. NEW ORDER FOR GUAIC STOOL AND REPEAT H&h IN 6 HOURS.
--- NOTE | 2024-04-09 07:50 | NUR ---
ASSUMED CARE OF PT- BEDSIDE REPORT COMPLETED WITH NIGHT RN. PT IN BILATERAL WRIST RESTRAINTS AND ON CAMERA, PUREWICK IN PLACE AND CONNECTED TO SUCTION. PT DOES NOT COMMUNICATE VERBALLY EXCEPT TO SAY "OUCH." RESTRAINTS LOOSESNED AND ROM PERFORMED WITH BILAT UPPER EXTREMITIES. PT APPEARS TO BE VERY COGNITIVELY IMPAIRED. PER REPORT FROM NIGHT RN THIS CHANGE OCCURRED 3 DAYS AGO. PT HAD A CT HEAD NEGATIVE FOR CVA. PT IS COVID POSSITIVE, SINCE THE COGNITIVE CHANGE SHE HAS REFUSED TO TAKE ORAL MEDS, INCLUDING XERALTO. PT IS ALSO REFUSING PO INTAKE OF FOOD OR FLUIDS. IM ZYPREXA TO HELP WITH AGGITATION. PT COMBATIVE WITH CARE PER REPORT. PT HAD A LARGE STOOL SUSPICIOUS FOR GUIAC, SAMPLE SENT TO LAB, NIGHT HOSPITALIST ORDERED REPEAT H&H AT 1230. CONSULT FOR PALLIATIVE CARE IS IN, WILL CONTACT THEM WHEN THEY ARRIVE FOR ASSISTANCE IN SYMPTOM MANAGEMENT. PT HAS HER SON LISTED POINT OF CONTACT, SHE APPARENTLY LIVES WITH HIM (PER NIGHT RN REPORT) DAUGHTER LIVES IN [place] AND IS NOT LISTED ON THE INFORMATION RELEASE FORM. DAUGHTER CALLED FOR UPDATE LAST NIGHT, NIGHT RN INSTRUCTED HER TO CONTACT THE SON FOR MORE INFO SHE CAN NOT GIVE INFORMATION. PER DAUGHTER THE PT IS TYPICALLY A&O X4. PT IS CURRENTLY ALERT BUT CAN NOT TELL STAFF HER NAME. SHE APPEARS FEARFUL AT THE TIME OF BEDSIDE REPORT AND IS RESISTANT AT THE START OF ROM, BUT RELAXED AFTER A FEW MINUTES.
[2024-04-09] MEDS ORDERED: Potassium Phosphate Dibasic 30 MM in Dextrose 5% 500 ML IV STA (08:30)
--- NOTE | 2024-04-09 09:52 | NUR ---
DR BERRIOS AT THE BEDSIDE- DR BERRIOS CAME TO ASSESS THE PT. PT YELLING "NO, AND OW" WHEN HER NAME IS CALLED PT WILL RESPOND WITH "WHAT!?" BUT THEN HER RESPONSE TO THE QUESTION IS "NO!." SPOKE TO PALLIATIVE CARE RN RONALDO SHE IS AWARE OF THE CONCERNS. DR BERRIOS ATTEMPTED TO GET THE PT TO DRINK ENSURE, PT REFUSED. DR BERRIOS REMOVED BILATERAL WRIST RESTRAINTS.
[2024-04-09 11:44] LABS: Hematocrit 30.2 % (33.0-51.0); Hemoglobin 9.6 g/dL (11.5-16.0)
--- NOTE | 2024-04-09 12:07 | NUR ---
PT REPOSITIONED- PT HAD ANOTHER LOOSE STOOL BLACK AND TARRY HOWEVER IT APPEARED MORE GREEN IN COLOR OPPOSED TO RED. CALLED LAB THEY ARE GOING TO RUN THE GUIAC SOON. PT WAS CLEANED AND PLACED IN A CLEAN ATTENDS, BED BATH PERFORMED, THE PT NEEDED SOME CARE. MEPILEX REPLACED ON HER BOTTOM SHE HAS AN OPEN WOUND ON THE RIGHT. PT WAS ATTEMPTING TO GRAB AND PINCH STAFF; HOWEVER SHE WOULD GRAB HERSELF AND PINCH THERE IF THAT IS WHAT SHE GRABBED. PT HAS A LARGE BLACK & BROWN (APPEARS LIKE A GIANT MOLE) RAISED SPOT ON HER LEFT BREAST ABOUT 3 X 2 INCHES IN SIZE, UNABLE TO GET AN EXACT MEASURE THE PT WAS UNCOMFORTABLE WITH THE CARE PROVIDED. PT PUREWICK DC'D THE PT HAS BOWEL INCONTINENCE REQUIRING AN ATTENDS TO BE IN PLACE; PER THE INSERVICE IT IS CONTRAINDICATED FOR PUREWICK TO BE USED ON PT INCONTINENT OF BOWEL OR THAT HAS ATTENDS IN PLACE.
[2024-04-09 12:14] LABS: Percent Saturation 13.9 % (15.0-50.0)
[2024-04-09 12:34] LABS: Thyroid Stimulating Hormone 1.78 uIU/mL (0.360-4.800)
[2024-04-09 12:37] LABS: Stool Occult Blood Guaiac 1 Neg (Neg)
[2024-04-09] MEDS ORDERED: Sod Ferric Gluc Complx/Sucrose 125 MG in NS 100 ML IV SCH (16:00)
--- NOTE | 2024-04-09 19:37 | NUR ---
SHIFT SUMMARY- PT ALERT, NOT ORIENTED AT ALL. SHE SAYS THREE PHRASES "NO, DON'T AND STOP IT." PT IS COMBATIVE WITH STAFF ON REPOSITIONING AND CHANGING. SHE IS INCONTINENT OF URINE AND STOOL. LAST CHANGE WAS AT 1730 REPOSITIONED HER TO RIGHT SIDE LYING AT 1830. PT IN BED NO S&S OF DISTRESS NOTED PT TITRATED TO ROOM AIR SATS GREATER THAN 90%. REPORT COMPLETED WITH NIGHT RN, NO ACUTE CHANGE T/O THE SHIFT.
[2024-04-10 05:25] LABS: Hematocrit 33.5 % (33.0-51.0); Hemoglobin 10.9 g/dL (11.5-16.0); Mean Corpuscular HGB 27.7 pg (26.0-34.0); Mean Corpuscular HGB Conc 32.5 g/dL (31.5-36.5); Mean Platelet Volume 12.4 fL (9.1-12.4); Platelet Count 85 K/mm3 (150-400); RDW Coefficient Variation 14.9 % (11.7-14.2); RDW Standard Deviation 46.5 fL (35.1-46.3); Red Blood Cell Count 3.94 M/mm3 (3.80-5.20); White Blood Cell Count 4.05 K/mm3 (4.00-11.30)
[2024-04-10 05:45] LABS: Mean Corpuscular Volume 85 fL (80-100)
[2024-04-10 05:58] LABS: Bun/Creatinine Ratio 16.6 (12.0-20.0); Calcium, Blood 8.4 mg/dL (8.5-10.1); Creatinine, Blood 0.91 mg/dL (0.40-1.00); Potassium, Blood 3.3 mmol/L (3.5-5.5)
--- NOTE | 2024-04-10 06:34 | NUR ---
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 Is alert but not able to make needs known. ADLs have been 2p but did not get out of bed during shift. On enhanced ISO for covid. No SX of pain during shift. Power glide to left upper arm is patent with dressing that is CDI.
[2024-04-10 08:00] VITALS: BP 149/71
[2024-04-10] MEDS ORDERED: NS KCl 20mEq 1,000 ML IV SCH (08:10)
[2024-04-10 15:04] LABS: International Normalized Ratio 1.03
[2024-04-10] MEDS ORDERED: Heparin Sodium,Porcine/0.5 NS 500 ML IV SCH (15:10)
[2024-04-10] MEDS ORDERED: QUEtiapine Fumarate 25 MG Tab PO PRN (15:20)
[2024-04-10 16:10] VITALS: BP 155/80
--- NOTE | 2024-04-10 18:12 | NUR ---
PATIENT CONTINUES TO BE CONFUSED AND ORIENTED TO SELF ONLY. REFUSING MEALS AND PO MEDICATIONS. IRRITABLE WITH REPOSITIONING AND CHANGING. EMESIS X2 THIS SHIFT, ZOFRAN GIVEN TO TREAT. IV DILAUDID GIVEN FOR STATED PAIN. NS WITH 20K INFUSING AT 75ML/HR, HEPARIN GTT STARTED TODAY. PRESSURE SORE TO BUTTOCKS CLEANSED AND FOAM DRESSING PLACED TO PROTECT. DRESSING TO L FOOT REMAINS C/D/I. FALL PRECAUTIONS IN PLACE, REMOTE MONITORING SET UP FOR SAFETY.
[2024-04-10 20:00] VITALS: BP 145/83
[2024-04-10] MEDS ORDERED: QUEtiapine Fumarate 25 MG Tab PO SCH (21:00)
[2024-04-10] MEDS ORDERED: Dose Adjust by Pharmacy XX STA (22:42)
[2024-04-11 02:56] VITALS: BP 152/83
--- NOTE | 2024-04-11 04:45 | NUR ---
PT REMAINS ORIENTED TO SELF ONLY. DOES NOT ANSWER ORIENTTATION QUESTIONS APPRORPIATELY. WITHDRAWN, ONLY SHOUTS "NO" OR "OUCH". OR NODS HER HEAD YES. MOBILITY IS LIMITED T/O, LEFT FOOT GANGRENE. PULSE TO LEFT DORAL PEDIS NOT PALPABLE BUT ANKLE WARM TO TOUCH, BLANCHABLE, PODIATRY FOLLOWING. REPOSITION Q2. HEPARIN GTT INFUSING WELL IV FLUIDS WITH 2O MEQ KCL. SCANT EMESIS X1 THIS SHIFT AFTER LAYING HER DOWN FLAT TO CHANGE ATTENDS. PRN ZOFRAN GIVEN WITH RELIEF. PT SLEPT A COUPLE HOURS, HOB ELEVATED. CALL LIGHT IN REACH, DOES NOT CALL APPROPRIATELY. BED ALARM ON, LOCKED IN LOW POSITION.
[2024-04-11 06:26] LABS: Hematocrit 31.3 % (33.0-51.0); Hemoglobin 10.1 g/dL (11.5-16.0); Mean Corpuscular HGB 27.8 pg (26.0-34.0); Mean Corpuscular HGB Conc 32.3 g/dL (31.5-36.5); Mean Corpuscular Volume 86 fL (80-100); RDW Coefficient Variation 15.3 % (11.7-14.2); RDW Standard Deviation 48.7 fL (35.1-46.3); Red Blood Cell Count 3.63 M/mm3 (3.80-5.20); White Blood Cell Count 2.98 K/mm3 (4.00-11.30)
[2024-04-11 06:31] LABS: Mean Platelet Volume 11.8 fL (9.1-12.4); Platelet Count 81 K/mm3 (150-400)
--- NOTE | 2024-04-11 06:40 | NUR ---
PT LEFT ARM HAS BEEN EDEMATOUS T/O SHIFT. POWERGLIDE IS TO LEFT UPPER ARM, MONITORED OVER NIGHT TO SEE IF EDEMA INCREASED WITH THE CONTINUOUS FLUIDS, EDEMA HAS NOT SEEMED TO INCREASE BUT EDEMA HAS NOT COME DOWN WITH PASSIVE MOVEMENT AND ELEVATION OF ARM. POWERGLIDE FLUSHES EASILY, NO RESISTANCE, DOES NOT DRAW BACK BLOOD. MAY NEED A NEW POWERGLIDE, WILL HAVE DAY SHIFT RN ASSESS WITH ME THIS MORNING FOR FURTHER PLAN OF CARE. SENIOR INTEGRATION DEVELOPER GAURI, ASSESSED AND AGREED. WILL AWAIT APTT RESULTS THIS AM TO SEE IF THIS SHOWS ANY INDICATION OF INFILTRATION.
--- NOTE | 2024-04-11 06:52 | NUR ---
APTT CAME BACK LOWER THAN PRIOR LAB WHICH COULD INDICATE THAT HER POWERGLIDE HAS INFILTRATED. IV PAUSED AND WILL REPORT TO DAY SHIFT RN, TO REMOVE AND WILL NEED NEW POWERGLIDE. PHARMACIST CALLED TO MAKE AWARE HEPARIN GTT IS PAUSED
[2024-04-11 07:37] LABS: Bun/Creatinine Ratio 16.3 (12.0-20.0); Calcium, Blood 7.6 mg/dL (8.5-10.1); Creatinine, Blood 1.04 mg/dL (0.40-1.00)
--- NOTE | 2024-04-11 12:21 | NUR ---
Ethics consult order received and processed. Medical history, disease trajectory and family constellation reviewed with Dr Joel. 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 She is relatively non-adherent and persistent in her refusal of invasive intervention. I recommend either a reassessment by psychiatry to ascertain current decisional capacity, or the facilitation of a mini mental examination by OT. Once a determination is reached about her cognitive status, we will have adequate information to entertain next steps i.e. the coordination of a procedural treatment or the forgoing of surgery to align with the principals expressed wishes. If the principal comprehends the benefits and disadvantages of either option then her dignity of choice should be recognized and honored despite the potentially untoward implications. Please reach out again once her compos mentis has been established or refuted, for further support if requisite. Thank you for this consult. Justice Martinez, PhD, ABE
[2024-04-11] MEDS ORDERED: Dose Adjust by Pharmacy XX STA (17:08)
--- NOTE | 2024-04-11 17:49 | NUR ---
PATIENT MORE TALKATIVE TODAY, HOWEVER REMAINS CONFUSED. CONTINUES ON HEPARIN GTT, PTT 139 THIS EVENING AND GTT STOPPED FOR 1 HOUR AND WILL RESUME AT A REDUCED RATE. PRESSURE SORE TO BUTTOCKS CLEASNED AND FOAM DRESSING PLACED. L FOOT WOUND PAINTED WITH BETADINE, COVERED WITH NONADHERENT AND WRAPPED WITH KERLEX. PATIENT CONTINUES TO HAVE NAUSEA AND VOMITTING THAT SEEMS TO BE RELATED TO TURNING AND REPOSITIONING. ZOFRAN GIVEN X1 TO TREAT. NS WITH 20K INFUSING AT 75ML/HR. NEW POWERGLIDE PLACED THIS AM TO CANDIS. ZYPREXA GIVEN X1 THIS AM PRIOR TO POWERGLIDE PLACEMENT.
[2024-04-11 19:25] VITALS: BP 183/88
[2024-04-11 22:33] VITALS: BP 193/86
[2024-04-11 22:41] VITALS: BP 163/90
[2024-04-11 22:54] VITALS: BP 152/84
[2024-04-12 01:40] LABS: Hematocrit 26.9 % (33.0-51.0); Hemoglobin 8.7 g/dL (11.5-16.0); Mean Corpuscular HGB 28.2 pg (26.0-34.0); Mean Corpuscular HGB Conc 32.3 g/dL (31.5-36.5); Mean Corpuscular Volume 87 fL (80-100); Mean Platelet Volume 12.8 fL (9.1-12.4); Platelet Count 71 K/mm3 (150-400); RDW Coefficient Variation 15.4 % (11.7-14.2); RDW Standard Deviation 49.2 fL (35.1-46.3); Red Blood Cell Count 3.08 M/mm3 (3.80-5.20); White Blood Cell Count 2.97 K/mm3 (4.00-11.30)
[2024-04-12 02:07] LABS: Bun/Creatinine Ratio 16.8 (12.0-20.0); Calcium, Blood 7.1 mg/dL (8.5-10.1); Creatinine, Blood 0.95 mg/dL (0.40-1.00); Potassium, Blood 2.8 mmol/L (3.5-5.5)
[2024-04-12] MEDS ORDERED: Magnesium Sulf 2 GM/Water 50ML 50 ML IV ONE ×2 (02:25→08:40)
[2024-04-12] MEDS ORDERED: Dose Adjust by Pharmacy XX STA ×2 (02:57→11:04)
[2024-04-12 02:58] VITALS: BP 150/103
--- NOTE | 2024-04-12 04:21 | NUR ---
SHIFT SUMMARY PT REMAINS CONFUSED BUT WAS MORE TALKATIVE AT START OF SHIFT. T/O NIGHT PT BECAME MORE WITHDRAWN AND BACK TO HOW SHE SEEMED THE NIGHT PRIOR. REMAINS CALM AND ONLY YELLS OUT WITH PASSIVE MOVEMENT. HOB ELEVATED FOR NAUSEA, ZOFRAN GIVEN X2. REPOSITION IN BED, MEPILEX CHANGED PRN SOILAGE. MODERATE LOOSE/MUCOUSY BM. DILAUDID GIVEN X2, PT STATES PAIN TO BILAT FEET. REPORTS RELIEF WITH DILAUDID. DRESSING TO LEFT FOOT REMIANS C/D/I. CRITICAL MAG 1.0 THIS AM, [address] RUSSO AND INFUSING NOW. CRITICAL APTT >139 THIS AM, NOTIFIED PHARMACY, WHO ORDERED TO PAUSE FOR 1 HOUR THEN RESTART AT LOWER RATE OF 15 UNITS/KG/HR.
--- NOTE | 2024-04-12 06:05 | NUR ---
VERIEFIED WITH PHARMACY COMPATIBILITY OF IV MAG WITH HEPARIN AND 20 MEQ KCL. MAG COMPLETED, NS WITH 20 MEQ KCL RESUMED. HAD MENTIONED TO DR. RUSSO POTASSIUM WITH MORNING LABWORK WAS 2.8. CLARIFIED WITH HIM THAT HE WANTED TO RESUME IV FLUIDS WITH POTASSIUM AT SAME RATE ONCE MAG COMPLETE.
[2024-04-12 10:29] LABS: Hematocrit 29.9 % (33.0-51.0); Hemoglobin 9.5 g/dL (11.5-16.0)
[2024-04-12] MEDS ORDERED: Potassium Chloride 20 MEQ TabCR PO SCH (12:30)
[2024-04-12] MEDS ORDERED: Potassium Chl 10MEQ/Water100ML 100 ML IV ONE (16:55)
--- NOTE | 2024-04-12 17:44 | NUR ---
PATIENT A/O TO SELF ONLY. IRRITABLE AT TIMES AND RESISTENT OF CARE. CONTINUES TO REFUSE FOOD AND PO FLUIDS. MAGNESIUM AND POTASSIUM REPLACED. CONTINUES ON HEPARIN GTT AT 12 UNITS/KG/HR. IV DILAUDID GIVEN X1 THIS SHIFT FOR L FOOT PAIN. VSS, ON RA. INCONTINENT OF BOWEL AND BLADDER. DR. EDGE IN CONTACT WITH DAUGHTER SINCERE REGARDING PLAN OF CARE. DRESSING TO BUTTOCKS CHANGED TODAY AND REMAINS C/D/I. POWERGLIDE TO CANDIS COSTA, DRAWS WELL.
[2024-04-12 19:54] VITALS: BP 172/66
[2024-04-13 02:37] LABS: BASOPHILS ABSOLUTE AUTO 0.01 K/mm3 (0.00-0.23); BASOPHILS PERCENT AUTO 0 % (0-2); EOSINOPHILS ABSOLUTE AUTO 0.12 K/mm3 (0.00-0.68); EOSINOPHILS PERCENT AUTO 3 % (0-6); Hemoglobin 8.9 g/dL (11.5-16.0); IMMATURE GRAN ABSOLUTE AUTO 0.07 K/mm3 (0.00-0.10); IMMATURE GRAN PERCENT AUTO 2 % (0-1); LYMPHOCYTES ABSOLUTE AUTO 0.73 K/mm3 (0.84-5.20); LYMPHOCYTES PERCENT AUTO 19 % (21-46); MONOCYTES ABSOLUTE AUTO 0.39 K/mm3 (0.16-1.47); MONOCYTES PERCENT AUTO 10 % (4-13); Mean Corpuscular Volume 85 fL (80-100); Mean Platelet Volume 11.8 fL (9.1-12.4); NEUTROPHILS ABSOLUTE AUTO 2.44 K/mm3 (1.96-9.15); NEUTROPHILS PERCENT AUTO 65 % (41-73); Platelet Count 90 K/mm3 (150-400); RDW Coefficient Variation 15.1 % (11.7-14.2); RDW Standard Deviation 47.4 fL (35.1-46.3); Red Blood Cell Count 3.18 M/mm3 (3.80-5.20); White Blood Cell Count 3.76 K/mm3 (4.00-11.30)
[2024-04-13 02:57] VITALS: BP 148/79
[2024-04-13 03:14] LABS: Magnesium, Blood 2.4 mg/dL (1.6-2.4)
[2024-04-13 03:25] LABS: Albumin, Blood 2.5 g/dL (3.4-5.0); Albumin/Globulin Ratio 0.9 (0.8-1.8); Bilirubin, Total 0.7 mg/dL (0.1-1.0); Bun/Creatinine Ratio 12.8 (12.0-20.0); Calcium, Blood 7.6 mg/dL (8.5-10.1); Creatinine, Blood 0.93 mg/dL (0.40-1.00); Globulin, Blood 2.9 g/dL (2.2-4.0); Phosphorus, Blood 1.1 mg/dL (2.5-4.9); Potassium, Blood 2.8 mmol/L (3.5-5.5); Total Protein, Blood 5.4 g/dL (6.4-8.2)
--- NOTE | 2024-04-13 04:06 | NUR ---
SHIFT SUMMARY PT REMAINS CONFUSED AND IRRITABLE. YELLS OUT WITH HANDS ON PT CARE. REFUSING FOOD OR DRINK, AND ALL PO MEDS. POWERGLIDE TO CANDIS INFUSING HEPARIN AND IV FLUIDS WITH 20 MEQ KCL CONTINUOUSLY. PT REQUIRES ARM BOARD TO KEEP ARM STRAIGHT. SMALL MUCOUSY SMEARS OF BM. IM ZYPREXA GIVEN X1 FOR AGITATION. IV DILAUDID GIVEN X1 FOR PAIN TO FEET, AFTER DRESSING TO LEFT FOOT WAS CHANGED. PT DESATTED TO 86% ON ROOM AIR BRIEFLY AFTER IV DILAUDID, ATTEMPTED TO PLACE 2L NC IN PT'S NOSE AND SHE BECAME MORE IRRITABLE NOT ALLOWING ME, HOWEVER SHE THEN HAS REMAINED ABOVE 90% ON ROOM AIR. LAB HAS BEEN DRAWING APTT PHARMACY THINKS THE CRITICIALLY HIGH LINE DRAWS HAVE NOT BEEN ACCURATE. POTASSIUM CAME BACK 2.8 THIS AM, DR RUSSO NOTIFIED AND PLACED ORDERS. PRN ZOFRAN GIVEN X1 FOR NAUSEA BUT NO EMESIS. UNABLE TO MAKE NEEDS KNOWN. CAMERA IN ROOM FOR SAFETY, BED LOCKED IN LOW POSITION, CALL LIGHT IN REACH.
[2024-04-13] MEDS ORDERED: Potassium Phosphate Dibasic 20 MM in Dextrose 5% 500 ML IV STA (04:34)
--- NOTE | 2024-04-13 06:04 | NUR ---
ATTEMPTED SECOND IV START VIA US X 2, SUCCEEDED THE 1ST TIME BUT IT IMMEDIATELY INFILTRATED, SECOND TRY PT WAS NOT ABLE TO HOLD STILL LONG ENOUGH TO FULLY TRY. SECURITY ASSISTED WITH HELPING TO HOLD PT STILL WELL A 2ND RN. DR AWARE THAT THE PT IS A DIFFUCULT IV PLACEMENT AND ALTERNATIVE ORDERS ALREADY IN PLACE IN CASE WE WERE NOT ABLE TO GET 2ND SITE. PRIMARY RN AWARE.
--- NOTE | 2024-04-13 06:17 | NUR ---
CHARGE NURSE ATTEMPTED TWICE THIS MORNING TO PLACE A SECOND IV SITE WITH NO SUCCESS, RECEIVED TELEPHONE ORDER FROM DR. RUSSO IF UNSUCCESSFUL TO PUT HEPARIN GTT ON HOLD TO INFUSE STAT POTASSIUM PHOSPHORUS THIS AM IT IS NOT COMPATIBLE. NOTIFIED PHARMACY PAUSING HEPARIN TO START POTASSIUM PHOS AT 0605.
[2024-04-13 07:34] VITALS: BP 151/75
--- NOTE | 2024-04-13 09:15 | NUR ---
NOTE: PER NOC RN REPORTS, HEPARIN AND K CHLORIDE WAS STOPED AT 0605 THIS AM, PHARMACIST AND HOSPITALIST WAS NOTIFIED D/T LACK OF IV ACCESS. ATTEMPTED MULTIPLE TIMES IV PLACED FIRST THING THIS AM, BUT PATIENT WAS NOT ABLE TO HOLD STILL EVEN c 2 STAFF HOLDING HER ARMS CONTINUES JERKING AND SCREAMING TO THIS RN AND DIVISION HUMAN RESOURCES MANAGER'S. NOTIFIED DR. KELY dockery THIS ISSUES. PER DR. EDGE TO FINISHED K PHOS, THEN INFUSED IV SOD FERRIC NEXT THEN CONTINUE INFUSING HEPARIN, CEFEPIME AND K CHLORIDE. NOTIFIED PHARMACIST REGARDING THIS ISSUE.
--- NOTE | 2024-04-13 11:37 | NUR ---
NG TUBE PLACEMENT NOTE: PATIENT A/O TO SELF AND PLACED AND HAS NOT BEEN EATING FOR 8 DAYS, REFUSING ALL ORAL INTAKE. PER DR. EDGE SHE SPOKE TO SINCERE (DAUGHTER) YESTERDAY FROM [place] AND REQUESTING TO HAVE NG TUBE PLACED FOR NUTRITION. PATIENT EDUCATED ON NG TUBE PLACEMENT, PATIENT WAS RESISTANT AND STATED "OKAY, BUT I DON'T WANT THIS ANYMORE I WANT YOU GUYS TO STOPPED. THIS RN INFORMED PATIENT THAT SINCERE'S REQUEST TO HAVE NG TUBE PLACED. PATIENT REPLIED "I DON'T CARE." NG TUBE PLACED SUCCESFULLY AND VERIFIED TO AUSCULTATION . BILAT SOFT WRIST RESTRAINTS PLACED FOR SAFETY AND PREVENTING FROM PULLING THE TUBE OUT. PATIENT PULLED NG TUBE, LAST ONLY 30 MINS. SOFT BILAT WRIST RETRAINT DC'Maria Eugenia. NOTIFIED DR. EDGE c THIS ISSUE. PER DR. EDGE SHE WILL CALL THE DAUGHTER. AT 1200 RECEIVED CALL FROM SINCERE (DAUGHTER). UPDATED DAUGHTER REGARDING NG TUBE PLACEMENT, LAST ONLY 30 MINS AND HER MOM PULLED IT OUT, EVEN WITH SOFT BILAT WRIST RESTRAINT PLACED. ALSO MENTIONED TO DAUGHTER PATIENT VERBALIZED TO STOP ALL TREATMENT, TO BE LEFT ALONE AND GO HOME. PER SINCERE SHE WILL TALKED TO THE REST OF HER FAMILY TO COME UP WITH THE PLAN. ALSO SINCERE REQUESTED TO TALKED TO HER MOM. PATIENT ASSISTED DIALING THE PHONE ONLY LAST 30 SECONDS AND PATIENT REFUSED TO TALKED TO SINCERE, STATED "NO, I DON'T WANT TO TALK TO HER ANYMORE." PATIENT LAYING IN BED c CALL LIGHT IN REACH. PATIENT ON CONTINUES VEDIO MONITORING AND BED ALARM ON FOR SAFETY.
[2024-04-13 14:31] LABS: Phosphorus, Blood 1.5 mg/dL (2.5-4.9)
--- NOTE | 2024-04-13 16:41 | NUR ---
SHIFT SUMMARY: PATIENT A/O TO SELF AND PLACED, IRRITABLE AT TIMES AND RESISTANT TO ALL CARE. PATIENT CONTINUES TO REFUSED FOOD, PO FLUIDS AND ALL PO MEDS. PATIENT REQUEST TO GO HOME, STATED "PLEASE HELP ME, I NEED TO GO HOME I DONT WANNA BE HERE ANYMORE AND I WANT ALL OF THIS TO STOP." HEPARIN RESTARTED AT 1224 AT A CURRENT RATE 9 U/KG/HR-12.6 MLS/HR, RATE CONTROLLED BY PHARMACIST. DRESSING TO L FOOT C/D/I. PATIENT HAD BEDBATH/LINEN CHANGED, INCONTINENT OF BOWEL/BLADDER, ATTENDS PLACED/CHANGED AND REPOSITIONED T/O SHIFT. PATIENT REFUSED ORAL CARE. VITAL SIGNS REVIEWED. PATIENT ON CONTINUES VEDIO MONITORING, BED ALARM ON FOR SAFETY. CALL LIGHT IN REACH.
[2024-04-13 17:15] VITALS: BP 153/82
--- NOTE | 2024-04-13 17:25 | NUR ---
ADDITIONAL SHIFT NOTE: PATIENT REPORTS PAIN 7-10 TO FEET, MEDICATED X2 c IV EMAR PAIN MEDS c GOOD EFFECT.
[2024-04-13 20:03] VITALS: BP 156/89
[2024-04-14] VITALS (7 sets, daily range): BP systolic 148–173; BP diastolic 76–92
[2024-04-14 01:18] LABS: Hematocrit 28.8 % (33.0-51.0); Hemoglobin 9.2 g/dL (11.5-16.0); Mean Corpuscular HGB 27.6 pg (26.0-34.0); Mean Corpuscular HGB Conc 31.9 g/dL (31.5-36.5); Mean Corpuscular Volume 87 fL (80-100); Platelet Count 91 K/mm3 (150-400); RDW Standard Deviation 47.4 fL (35.1-46.3); Red Blood Cell Count 3.33 M/mm3 (3.80-5.20); White Blood Cell Count 4.43 K/mm3 (4.00-11.30)
[2024-04-14 01:34] LABS: Bun/Creatinine Ratio 11.4 (12.0-20.0); Calcium, Blood 7.9 mg/dL (8.5-10.1); Creatinine, Blood 0.88 mg/dL (0.40-1.00); Magnesium, Blood 1.9 mg/dL (1.6-2.4); Phosphorus, Blood 1.1 mg/dL (2.5-4.9)
[2024-04-14] MEDS ORDERED: Dose Adjust by Pharmacy XX STA ×2 (01:58→23:08)
--- NOTE | 2024-04-14 06:00 | NUR ---
SHIFT SUMMARY: PATIENT ORIENTED TO SELF, UNCOOPERATIVE. REFUSED ORAL MEDICATIONS. ATE TWO [employer] FRIES LAST NIGHT. SOFT BOWEL MOVEMENT OVERNIGHT. PATIENT CLEANED. HEPARIN DRIP INCREASED TO 11U/KG/HR PER TITRATION NEED ACCORDING TO APTT.
[2024-04-14] MEDS ORDERED: Potassium Phosphate Dibasic 30 MM in Dextrose 5% 500 ML IV STA (08:33)
[2024-04-14] MEDS ORDERED: HydrALAZINE HCl 20 MG / ML 1ML Vial IV PRN (08:45)
--- NOTE | 2024-04-14 09:51 | NUR ---
HEPARIN DRIP HOLD NOTE: FINISHING SUPERVISOR AXEL ATTEMPTED SECOND IV SITE c NO SUCCESS. PATIENT HAS ORDERED TO INFUSED K PHOS. PATIENT ON CONTINUES HEPARIN GTT AND NOT COMPATIBLE c K PHOS. NOTIFIED PHARMACIST CORINNA REGARDING THIS CONCERNED. RECEIVED ORDER FROM CORINNA TO HOLD HEPARIN DRIP FOR NOW UNTIL K PHOS COMPLETED AND NOTIFIED PHARMACIST FOR HEPARIN RESTARTED TIME. RECEIVED A CALL BACK FROM DR. EDGE AT 1023, RECEIVED ORDER TO HOLD HEPARIN GTT AND INFUSE K PHOS.
--- NOTE | 2024-04-14 10:53 | NUR ---
NOTE: HEPARIN GTT HOLD AT 1038 PER ORDER.
--- NOTE | 2024-04-14 17:10 | NUR ---
SHIFT SUMMARY: PATIENT A/O TO SELF, FLAT AFFECT AND WITHDRAWN. DENIES CP/PRESSURE AND SOB. HYPERTINSIVE, MEDICATED X1 c IV HYDRALAZINE c MOD EFFECT. PATIENT REPORTS NAUSEA, MEDICATED X1 c IV PRN NAUSEA MED c GOOD EFFECT. THIS RN AND INSURANCE AGENCY SALES MANAGER OFFERED FOOD AND PO FLUIDS TO PATIENT BUT CONTINUES TO REFUSED T/O SHIFT. PATIENT FAMILY TRIED TO CALL ON HER CELLPHONE AND CALLING THE INSURANCE CLAIMS ANALYST REQUESTING TO SPEAK c PATIENT. NOTIFIED PATIENT c FAMILY'S REQUEST, PER PATIENT "I DON'T WANNA TALK TO ANYONE RIGHT NOW." DRESSING CHANGED TO L FOOT PER ORDER. PATIENT REPORTS PAIN TO BACK, MEDICATED X2 c IV PRN PAIN MEDS c GOOD RELIEF. PATIENT HEPARIN GTT RESTARTED AT 1630, NOTIFIED PHARMACIST-MIKALA. PATIENT INCONTINENT OF BOWEL/BLADDER, ESTELLE CARE, ATTENDS CHANGED, REPOSITIONED T/O SHIFT. PATIENT STILL ON CONTINUES VEDIO MONITORING, BED ALARM ON FOR SAFETY. CALL LIGHT IN REACH.
[2024-04-15 04:50] VITALS: BP 145/82
[2024-04-15 05:58] LABS: BASOPHILS ABSOLUTE AUTO 0.05 K/mm3 (0.00-0.23); BASOPHILS PERCENT AUTO 1 % (0-2); EOSINOPHILS ABSOLUTE AUTO 0.28 K/mm3 (0.00-0.68); EOSINOPHILS PERCENT AUTO 4 % (0-6); Hematocrit 30.6 % (33.0-51.0); Hemoglobin 9.7 g/dL (11.5-16.0); IMMATURE GRAN ABSOLUTE AUTO 0.29 K/mm3 (0.00-0.10); IMMATURE GRAN PERCENT AUTO 4 % (0-1); LYMPHOCYTES PERCENT AUTO 17 % (21-46); MONOCYTES ABSOLUTE AUTO 0.74 K/mm3 (0.16-1.47); MONOCYTES PERCENT AUTO 11 % (4-13); Mean Corpuscular HGB 27.1 pg (26.0-34.0); Mean Corpuscular HGB Conc 31.7 g/dL (31.5-36.5); Mean Corpuscular Volume 86 fL (80-100); Mean Platelet Volume 12.7 fL (9.1-12.4); NEUTROPHILS ABSOLUTE AUTO 4.13 K/mm3 (1.96-9.15); NEUTROPHILS PERCENT AUTO 63 % (41-73); Platelet Count 108 K/mm3 (150-400); RDW Coefficient Variation 15.1 % (11.7-14.2); RDW Standard Deviation 46.9 fL (35.1-46.3); Red Blood Cell Count 3.58 M/mm3 (3.80-5.20); White Blood Cell Count 6.59 K/mm3 (4.00-11.30)
--- NOTE | 2024-04-15 06:17 | NUR ---
SHIFT SUMMARY: PATIENT ORIENTED TO SELF. WITHDRAWN. PATIENT PICKED AT [employer]OWER[employer]IDE DRESSING; DRESSING HAD TO BE REPLACED. HEPARIN RUNNING AT 13U/KG/HR, KCL RUNNING AT 75ML/HR. PATIENT HAD DILAUDID IV ONCE DURING SHIFT. CLEANED, CHANGED WITH ATTENDS. PATIENT DIFFICULT TO DIRECT.
[2024-04-15 06:18] LABS: Albumin, Blood 2.6 g/dL (3.4-5.0); Albumin/Globulin Ratio 0.9 (0.8-1.8); Bilirubin, Total 0.8 mg/dL (0.1-1.0); Calcium, Blood 7.8 mg/dL (8.5-10.1); Creatinine, Blood 0.88 mg/dL (0.40-1.00); Magnesium, Blood 1.2 mg/dL (1.6-2.4); Phosphorus, Blood 1.8 mg/dL (2.5-4.9); Potassium, Blood 3.4 mmol/L (3.5-5.5); Total Protein, Blood 5.6 g/dL (6.4-8.2)
[2024-04-15 07:20] VITALS: BP 154/85
[2024-04-15] MEDS ORDERED: Magnesium Sulf 2 GM/Water 50ML 50 ML IV STA (10:09)
[2024-04-15] MEDS ORDERED: Potassium Chl 10MEQ/Water100ML 100 ML IV ONE (10:10)
[2024-04-15 15:09] VITALS: BP 151/82
--- NOTE | 2024-04-15 17:18 | NUR ---
SHIFT SUMMARY: PATIENT A/O TO SELF ONLY AND APPEARS WITHDRAWN. PATIENT STILL REFUSING ORAL MEDS, REFUSED BREAKFAST, ATE 5% FOR LUNCH AND DRANK COUPLE SIPS OF COFFEE c CREAMIER, OFFERED ORAL FLUIDS T/O THE DAY, BUT REFUSED THE REST OF THIS SHIFT. PATIENT INCONTINENT OF BOWEL/BLADDER, ESTELLE CARE, ATTENDS CHANGED AND REPOSITIONED T/O SHIFT. PATIENT REFUSED ORAL CARE. PATIENT PAIN TO BACK/FEET, WELL CONTROLLED c EMAR PAIN MEDS. DRESSING CHANGED TO L FOOT PER ORDER, BLE'S ELEVATED ON PILLOWS. PATIENT STILL ON CONTINUES HEPARIN GTT AT 13 U/KG/HR-18.2 MLS/HR, RATE CONTROLLED BY PHARMACIST. PATIENT RECEIVED OT DOSE IV MAG SULFATE AND EXTRA OT DOSE IV K CHLORIDE PER ORDER. VITAL SIGNS REVIEWED. PATIENT STILL ON CONTINUES VEDIO MONITORING AND BED ALARM ON FOR SAFETY. CALL LIGHT IN REACH. PATIENT DAUGHTER (SINCERE) CALLED TODAY AND SPOKE TO PEDIATRICS TEACHER, PER DAUGHTER TO LET HER MOM KNOW THAT HER, BROTHER AND PATIENT SISTER ARE COMING ON 04/18/24-TUESDAY AFTERNOON. THIS RN NOTIFIED RONALDO-PALLIATIVE CARE RN AND DR. EDGE REGARDING THIS UPDATE.
--- NOTE | 2024-04-15 18:26 | NUR ---
PER CONVERSATION WITH DR. EDGE THIS MORNING; PT'S DTR, SON AND SISTER WILL BE COMING IN TO THE HOSPITAL ON Tuesday04/18/24 TO DISCUSS GOALS OF CARE. IT IS UNKNOWN WHAT TIME ON TUESDAY.
[2024-04-15 21:00] VITALS: BP 163/78
[2024-04-15] MEDS ORDERED: QUEtiapine Fumarate 50 MG TAB PO SCH (21:00)
--- NOTE | 2024-04-16 05:23 | NUR ---
PT A&O TO SELF, DOES NOT ANSWER QUESTIONS APPROPRIATELY AND REFUSES TO ANSWER OCCASIONALY. PT RECEIVING HEPARIN AT 13 UNITS/KG/HR. PT OBTAINED NEW SKIN TEAR ON L ARM, BANDAID APPLIED OVER TOP. VSS, NO COMPLAINTS OF CP/PRESSURE OR SOB. PT REFUSED MOST OF HS MEDICATIONS. PT RECEIVED PAIN MEDS PRN. PT TOOK SEROQUEL. NO ACUTE EVENTS AT THIS TIME. PT SPENT MOST OF SHIFT IN BED WITH EYES CLOSED AND RESPIRATIONS EVEN AND UNLABORED. PT TURNED Q2. PT LEFT IN A POSITION OF SAFETY WITH FALL PRECAUTIONS IN PLACE AND CALL LIGHT IN REACH.
[2024-04-16 05:48] LABS: Hematocrit 30.4 % (33.0-51.0); Hemoglobin 9.4 g/dL (11.5-16.0); Mean Corpuscular HGB 27.2 pg (26.0-34.0); Mean Corpuscular HGB Conc 30.9 g/dL (31.5-36.5); Mean Corpuscular Volume 88 fL (80-100); Mean Platelet Volume 11.5 fL (9.1-12.4); NRBC ABSOLUTE 0.02 K/mm3 (0.00-0.02); NRBC Auto 0.3 /100 WBC (0.0-0.2); Platelet Count 106 K/mm3 (150-400); RDW Coefficient Variation 15.6 % (11.7-14.2); RDW Standard Deviation 49.5 fL (35.1-46.3); Red Blood Cell Count 3.46 M/mm3 (3.80-5.20); White Blood Cell Count 5.76 K/mm3 (4.00-11.30)
[2024-04-16 06:01] LABS: Bun/Creatinine Ratio 8.2 (12.0-20.0); Calcium, Blood 8.1 mg/dL (8.5-10.1); Creatinine, Blood 0.85 mg/dL (0.40-1.00); Magnesium, Blood 2.1 mg/dL (1.6-2.4); Potassium, Blood 3.8 mmol/L (3.5-5.5)
[2024-04-16 06:25] VITALS: BP 109/96
[2024-04-16] MEDS ORDERED: Dextrose 5% 250 ML IV ONE (06:55)
--- NOTE | 2024-04-16 07:44 | NUR ---
Ethics update: with the principal being officially rendered incapacitated, our default for medical decision making support is now the majority of her adult children. If when the principal was lucid, she expressed non-amenability to pursuing ampuation services i.e. she comprehended the full gravity of forgoing the procedure, could sensibly articulate the underlying reasons for the treatment declination and could cohesively express the consequences of said choice, then in accordance with ORS 127.760, her wishes for non-treatment should be honored by the proxy. If the principals faculties were not intact when she refused surgery, then the conversation with the family should be tempered strongly by the following: (1) the degree to which the principals wishes have been reliably voiced and are known; (2) the extent to which intervention would medically benefit the principals condition and restore her to a state of quality that she would find acceptable; and finally, (3) what would be in the principals best interest from a clinical and post-acute standpoint? Further invovement pending conversation with palliative care. Justice Martinez, PhD, ABE
--- NOTE | 2024-04-16 16:46 | NUR ---
PATIENT TALKATIVE WITH THIS RN TODAY. WHEN ASKED WAS GOING ON WITH HER FOOT, SHE STATED, "I DON'T KNOW WHAT TO DO". DISCUSSED PROS AND CONS OF HAVING AMPUTATION VERSUS NOT, INCLUDING PAIN, REHABILITATION AND ASSOCIATED RISKS. PATIENT STATES SHE HAS LIVED A REALLY GOOD LIFE AND BELIEVES SHE STILL HAVE SEVERAL GOOD YEARS AHEAD OF HER AND VOICES UNDERSTANDING WHEN DISCUSSION REGARDING GANGRENOUS INFx TO FOOT. REQUESTED PAIN MEDS x2 T/O SHIFT DUE TO FOOT PAIN. REPEATEDLY STATED, "I WONDER WHERE MY SON IS". THIS RN WAS TOLD IN REPORT THAT SON WOULD BE COMING IN TODAY TO SEE PATIENT; SON HAS NOT BEEN IN FACILITY YET.
[2024-04-16 17:12] VITALS: BP 143/90
--- NOTE | 2024-04-16 19:04 | NUR ---
DAY SHIFT SUMMARY: A&Ox3-4. PLEASANT AND COOPERATIVE WITH MOST CARE x ESTELLE-CARE, WHICH CAUSED HER A LOT OF ANXIETY AND DISCOMFORT. ATE 1/2 OF LUNCH AND DINNER TODAY; STATES SHE'S REALLY CRAVING A BEEF TACO. OK TO DC ENHANCED COVID PRECAUTIONS. VERY TALKATIVE AND JOKED WITH THIS RN. BM TODAY; CHANGED. NO CHANGE IN FOOT. PROVIDER TO BEDSIDE. HEP GTTS STOPPED AND CHANGED TO K+ PER DR. EDGE PT ONLY HAS ONE IV ACCESS AT THIS TIME AND DENIES INSERTION OF ADDITIONAL. MEDICATED x2 PAIN. NO ACUTE CONCERNS. REPORT TO ONCOMING RN.
[2024-04-16 19:50] VITALS: BP 149/77
[2024-04-17 02:56] VITALS: BP 130/60
[2024-04-17 02:59] LABS: Hemoglobin 9.1 g/dL (11.5-16.0); Mean Corpuscular HGB 27.7 pg (26.0-34.0); Mean Corpuscular HGB Conc 31.4 g/dL (31.5-36.5); Mean Corpuscular Volume 88 fL (80-100); Mean Platelet Volume 11.5 fL (9.1-12.4); Platelet Count 128 K/mm3 (150-400); RDW Coefficient Variation 15.9 % (11.7-14.2); RDW Standard Deviation 50.4 fL (35.1-46.3); Red Blood Cell Count 3.29 M/mm3 (3.80-5.20); White Blood Cell Count 5.67 K/mm3 (4.00-11.30)
[2024-04-17 03:15] LABS: Bun/Creatinine Ratio 10.1 (12.0-20.0); Creatinine, Blood 0.89 mg/dL (0.40-1.00); Magnesium, Blood 1.9 mg/dL (1.6-2.4); Potassium, Blood 3.4 mmol/L (3.5-5.5)
--- NOTE | 2024-04-17 04:04 | NUR ---
SHIFT SUMMARY PT PLEASANT AND COOPERATIVE THIS SHIFT. PT GIVEN SNACKS AT START OF SHIFT PT STATED SHE WAS "STARVING". PT SEEMS IN GOOD SPIRITS AND MAKING JOKES WITH STAFF. PT SLEPT MUCH OF THE NIGHT. CALL LIGHT WITHIN HER REACH AND AN UNDERSTANDING OF HOW TO USE IT. PT CONTINUES TO BE ON CAMERA. WILL CONTINUE TO MONITOR.
[2024-04-17 07:35] VITALS: BP 150/96
[2024-04-17] MEDS ORDERED: Potassium Chl 10MEQ/Water100ML 100 ML IV ONE (08:35)
--- NOTE | 2024-04-17 11:59 | NUR ---
CALL TO SON TO NOTIFY HIM THAT PT WANTS HIM TO BRING HER SOME TACOS. HE ENTHUSIASTICALLY AGREED AND WILL BE IN LATER TODAY WITH TACOS FOR HER.
[2024-04-17 15:18] VITALS: BP 156/84
--- NOTE | 2024-04-17 15:24 | NUR ---
CALL FROM DAUGHTER, SINCERE; SHE WILL BE HERE TOMORROW AROUND 1500.
--- NOTE | 2024-04-17 15:24 | NUR ---
PATIENT'S SON, DARLINE, BROUGHT IN SOME FOOD THAT HE'D MADE FOR HIS MOTHER TODAY. HE DID STATE, "MY SISTER IS EVIL--YOU'LL SEE. SHE'S NOT A NICE PERSON. AND SHE'S THE ONE MAKING DECISIONS FOR MOM AND MOM WANTS TO HAVE ME BE THE DECISION-MAKER. TOLD HIM I WOULD NOTIFY PRIMARY PROVIDER AND A P MECHANIC.
[2024-04-17] MEDS ORDERED: Thiamine HCl 100 MG in NS 50 ML IV SCH (16:09)
[2024-04-17 16:46] VITALS: BP 163/79
[2024-04-17] MEDS ORDERED: Dose Adjust by Pharmacy XX STA (17:31)
--- NOTE | 2024-04-17 17:31 | NUR ---
CALL FROM PHARMACY: PTT LOW. HEP GTTs TO INCREASE BY 2U/KG/HR BASED ON CURRENT WEIGHT.
--- NOTE | 2024-04-17 17:37 | NUR ---
VIDEO SURVEILLANCE DC'd AT 1720 PT IS MORE LUCID AND NO LONGER PULLING AT LINES OR A RISK TO HER SAFETY.
[2024-04-17] MEDS ORDERED: Metoprolol Tartrate 1 MG/ML 5 ML VIAL IV ONE (18:15)
[2024-04-17 19:42] VITALS: BP 117/64
[2024-04-17] MEDS ORDERED: Zolpidem Tartrate 10 MG Tab PO SCH (21:00)
[2024-04-18 01:04] LABS: Hematocrit 28.9 % (33.0-51.0); Hemoglobin 8.9 g/dL (11.5-16.0)
[2024-04-18 01:32] LABS: Bun/Creatinine Ratio 13.3 (12.0-20.0); Creatinine, Blood 0.97 mg/dL (0.40-1.00); Magnesium, Blood 1.7 mg/dL (1.6-2.4); Phosphorus, Blood 1.2 mg/dL (2.5-4.9); Potassium, Blood 3.3 mmol/L (3.5-5.5)
--- NOTE | 2024-04-18 04:59 | NUR ---
SHIFT SUMMARY PT PLEASANT AND COOPERATIVE WITH CARE THIS SHIFT. PT TALKATIVE AND APOLOGETIC FOR PAST BEHAVIOR. PT WAS OUT OF BED THIS EVENING AND WAS ABLE TO SIT IN A CHAIR FOR A BIT. PT ABLE TO WALK WITH A WALKER AND STANDBY ASSIST TO THE RESTROOM. PT HEPARIN CONTINUES TO RUN AT 21 ML/HR, BAG CHANGED A FEW HOURS AGO. BED IN LOW POSITION AND CALL LIGHT IS WITHIN PT REACH. WILL CONTINUE TO MONITOR.
[2024-04-18 06:12] VITALS: BP 121/61
[2024-04-18 07:17] VITALS: BP 120/68
[2024-04-18 15:33] VITALS: BP 140/79
[2024-04-18 16:51] LABS: Phosphorus, Blood 1.7 mg/dL (2.5-4.9); Potassium, Blood 3.7 mmol/L (3.5-5.5)
[2024-04-18 20:22] VITALS: BP 140/80
--- NOTE | 2024-04-18 20:59 | NUR ---
DAY SHIFT SUMMARY: A&Ox4. PLEASANT AND COOPERATIVE WITH CARE. CALLS APPROPRIATELY AND IS ABLE TO ADVOCATE NEEDS EFFECTIVELY. SON AT BEDSIDE MOST OF DAY. BROUGHT HER MEALS OF WHICH SHE CONSUMED 100%. PT AND SON ARGUING OVER POSSIBLE FOOT AMPUTATION. THIS RN REDIRECTED CONVERSATION TOWARD BEING GRATEFUL OF PATIENT'S RECENT TURNAROUND AND IMPROVEMENT. REDIRECTION FREQUENTLY REQUIRED ON SON'S BEHALF. MEDICATED x1 PAIN. FOOT LOOKING SLIGHTLY WORSE TODAY PATIENT HAS BEEN WALKING ON IT AND REFUSES TO WEAR BOOT. DISCUSSED USING BEDSIDE COMMODE INSTEAD OF AMBULATING TO THE BATHROM WITH NIGHT RN WHO AGREED. HEP GTTs STILL RUNNING @ 21mL/hr. FAMILY TO BEDSIDE AND WOULD LIKE TO MEET WITH HOSPITALIST (PREFERABLY DR EDGE, SHE HAS BEEN ON HER CASE ALL WEEK) AT 1000 TO DISCUSS PATIENT/FAMILY WISHES, ESPECIALLY NOW THAT HER COGNITION IS BACK AT BASELINE. APPETITE SIGNIFICANTLY IMPROVED. PER DR WILSON, PATIENT TO NOT GET AMBIEN AND SHOULD CONTINUE WITH QUETIAPINE FOR SLEEP ZOLPIDEM SEEMS TO INCREASE CONFUSION AND LETHARGY. BED IN LOWEST POSITION. CALL LIGHT WITHIN REACH. ALL NEEDS MET. REPORT TO ONCOMING RN.
[2024-04-18] MEDS ORDERED: QUEtiapine Fumarate 25 MG Tab PO SCH (21:00)
--- NOTE | 2024-04-19 00:40 | NUR ---
PT.'S CHILDREN REQUESTING MEETING WITH DR. JANET EDGE AT 10AM ON 04/19/24. PREVIOUS SHIFT RN WAS AVAILABLE TO SET UP THE MEETING? PT'S DAUGHTER ARRIVED FROM [place] DURING HS- STATED THAT SHE WILL BE LEAVING ON 04/19/24 EVENING BACK TO HOME/[place]. PT'S SON WALKING BACK AND FOURTH THE SCU UNIT (DURING THE SHIFT CHANGE), UNKNOWN TO THIS HOOF TRIMMER, THE ANXIOUS DEMEANOR OF THE SON. BOTH SIBLINGS LEFT THE UNIT- WILL BE BACK AT 10AM ON Tuesday04/19/[address] HEATH EDGE.
[2024-04-19 03:43] VITALS: BP 105/65
--- NOTE | 2024-04-19 04:48 | NUR ---
SHIFT SUMMARY PT IS A&O X4, PLEASANT AND COOP WITH CARE. HEPARIN DRIP INFUSING ORDERED AND VERIFIED WITH PHARMACY/ABEL, NEW BAG STARTED WITH SAME RATE, VERIFIED WITH RN OJ DURING THIS SHIFT. NO RATE CHANGE FOR HEPARIN GGT DURING THIS SHIFT. PT.'S DAUGHTER SINCERE AND SON BY PT'S BEDSIDE DURING THE SHIFT CHANGE. (SEE PREVIOUS NOTE WITH THIS SCHOOL PSYCHOLOGIST.) AT HS, PT.'S HR AROUND 110-120BPM, AND O2 LOW 90'S, DROPPING TO UPPER 80'S ON RA, ON CONTINUOUS O2 MONITOR. 2L o2 VIA NC T/O THE NIGHT, 95% AND HR DOWN TO 90'S. PT.DENIES SOB/CHEST TIGHTNESS. AT HS; TELE: SINUS [email or web address]. PT.C/O 9/10 BACK AND LE PAIN, PRN MEDICATED ORDERED (SEE EMAR) 2X DURING THIS SHIFT. NO ACUTE DISTRESS/EVENTS NOTED/REPORTED DURING THIS SHIFT. BED AT THE LOWEST POSITION, CALL LIGHT IN REACH. WILL HANDOFF TO THE INCOMING SHIFT NURSE.
[2024-04-19 07:05] VITALS: BP 123/77
[2024-04-19 07:22] LABS: Hematocrit 26.8 % (33.0-51.0); Hemoglobin 8.3 g/dL (11.5-16.0)
[2024-04-19 07:28] LABS: Bun/Creatinine Ratio 13.1 (12.0-20.0); Calcium, Blood 7.9 mg/dL (8.5-10.1); Creatinine, Blood 1.3 mg/dL (0.40-1.00); Magnesium, Blood 1.4 mg/dL (1.6-2.4); Phosphorus, Blood 2.2 mg/dL (2.5-4.9); Potassium, Blood 3.5 mmol/L (3.5-5.5)
[2024-04-19] MEDS ORDERED: Dose Adjust by Pharmacy XX STA ×2 (07:47→14:36)
[2024-04-19] MEDS ORDERED: Potassium Phos/Sodium Phos 250 MG PACK PO ONE (08:40)
[2024-04-19] MEDS ORDERED: Mag Sulfate 1 GM/D5% 100ML 100 ML IV STA (08:42)
[2024-04-19 15:27] VITALS: BP 137/76
--- NOTE | 2024-04-19 16:28 | NUR ---
SHIFT SUMMARY PT RESTING QUIETLY AT START OF SHIFT. UP TO CHAIR FOR BREAKFAST. HEPARIN DRIP INFUSING PER EMAR. PT UP TO CHAIR FOR MEALS AND UP TO SHOWER AFTER BREAKFAST. FAMILY HERE FOR MEETING WITH PT, DR HOPSON AND FLIGHT INFORMATION EXPEDITER. PT TO FOLLOW THRU WITH L BKA PENDING CONSULT WITH ORTHO, SON AND DAUGHTER BOTH IN AGREEMENT WELL. CONSULT CALLED TO DR BANSAL; MESSAGE LEFT ON CELL AFTER CALLING OFFICE. PT MEDICATED PER EMAR FOR C/O PAIN TO L FOOT. PT ALSO AGREEABLE TO D/C TO SNF FOR REHAB, AFTER BKA. CALL LT IN REACH, ABLE TO MAKE NEEDS KNOWN.
--- NOTE | 2024-04-19 18:31 | NUR ---
DR BANSAL HERE TO SEE PT THIS EVENING BEFORE DINNER. PLAN FOR L BKA DISCUSSED WITH PT. DR PHAM CALLED BY DR BANSAL FOR ADDITIONAL HX, HE HAD SEEN PT A FEW DAYS AGO. DR SANZ TO BE COVERING ORTHO FOR THE WEEKEND AND TO SEE PT TOMORROW.
[2024-04-19 19:42] VITALS: BP 102/54
[2024-04-20 03:44] LABS: Hemoglobin 8.5 g/dL (11.5-16.0); Mean Platelet Volume 11.3 fL (9.1-12.4); Platelet Count 152 K/mm3 (150-400)
--- NOTE | 2024-04-20 03:55 | NUR ---
SHIFT SUMMARY PT.IS A&O X4, PLEASANT, ABLE TO MAKE HER NEEDS KNOWN, COOP WITH CARE. IV HEPARIN DRIP INFUSING ORDERED, NO RATE CHANGES DURING THIS SHIFT. MEDICATED ORDERED C/O 05/19 LE& BACKPAIN T/O THE NIGHT. PT.STATES TO THIS EXCEL VBA DEVELOPER "I WILL BE OK AFTER THE TUESDAY'S SURGERY, IT'S WAY HARDER FOR MY KIDS, ESPECIALLY FOR MY SON."SOME COUGH(NON-PRODUCTIVE)/CONGESTION NOTED, LS CLEAR TO AUSCULTATION. O2: 92-94% ON RA, HR MID 90'S. TELE:SINUS RHYTHM@93. Patient's sleep schedule during this NOC shift: (2099) scheduled Seroquel 75mg PO administered @ 2017 (at same time with PRN Dilaudid 4mg PO per.pt.'s request) At 2120 pt. awake requesting/administered as ordered Tylenol PRN PO, At 0107 pt.requesting/administered as ordered PRN Dilaudid 4mg PO 0430 signing off this note, pt. appears to be asleep, resting eyes closed, RR even, unlabored, w/o any distress. Noted pt.only awake to request PRN meds, (did appear to stay awake much longer.) Total time of sleep during this noc shift (20:17-04:40) is approximately 8hrs. NO ACUTE EVENTS/DISTRESS NOTED/REPORTED DURING THIS SHIFT. FREQUENT ROUNDS/CHECKS T/O THE NIGHT.
[2024-04-20 04:18] VITALS: BP 103/66
[2024-04-20] MEDS ORDERED: Clarify Drug Order XX ONE (04:55)
[2024-04-20 07:20] VITALS: BP 115/61
[2024-04-20 15:33] VITALS: BP 121/72
--- NOTE | 2024-04-20 15:51 | NUR ---
SHIFT SUMMARY PT RESTING QUIETLY AWAKE AT START OF SHIFT. SLEPT WELL DURING THE NIGHT. MEDICATED PER EMAR FOR C/O L FOOT PAIN. DR WHITAKER HERE TO SEE PT REGARDING L BKA, BUT PT HAD JUST ATE BREAKFAST. DR SANZ TO SEE PT SOMETIME TODAY TO DISCUSS SX TIME. PT UP TO SHOWER THIS AM. REMAINS ON HEPARIN DRIP PER PHARMACY. DR HOPSON IN TO SEE PT AND UPDATED ON SX STATUS, JUST AFTER DR WHITAKER HERE. PT HAS REMAINED NPO SINCE 0800 IN CASE OF OPENING FOR SX OR UNTIL DR SANZ COMES TO SEE PT. SITTING UP IN BED, NAPPING OFF AND ON, WATCHING TV. CALL LT IN REACH.
[2024-04-20 16:27] LABS: Anti-Xa UFH, PHA Monitoring 0.54 IU/mL
[2024-04-20 19:54] VITALS: BP 134/84
[2024-04-21] VITALS (15 sets, daily range): BP systolic 102–161; BP diastolic 65–94
--- NOTE | 2024-04-21 03:55 | NUR ---
SHIFT SUMMARY PT. IS NPO AFTER MIDNIGHT. HS SEROQUEL AND PRN DILAUDID 4MG PO ADMINISTERED AT 1952. PT. DENIES SOB, O2 CONTINUOUS MONITORING 90-94% ON RA. HR 90-115BPM. LS CLEAR, SOME HACKING COUGH, NON PRODUCTIVE DURING HS. PT. VERBALIZED TO THIS YEAST SUPERVISOR THAT SHE IS FEELING ANXIOUS ABOUT THE SURGERY, BUT HAS ACCEPTED IT. PT'S DAUGHTER SINCERE CALLED FROM [facility], AND SPOKE WITH THIS YEAST SUPERVISOR. IT WAS AGREED THAT SHE WILL CALL AROUND 6AM THIS MORNING AND SPEAK WITH HER MOTHER, TO LIFT HER MOOD, AND HAVE A POSITIVE PHONE CONVERSTATION BEFORE THE SURGERY. SINCERE/DAUGHTER TOLD THIS YEAST SUPERVISOR OVER THE PHONE THAT SHE WILL BE COMING BACK TO [place] TO VISIT HER MOTHER ON TUESDAY WITH HER DAUGHTER (PT'S GRANDDAUGHTER), AND THAT WILL ALSO LIFT UP THE PT.'S MOOD. THE SURGERY IS SCHEDULED FOR 0730 THIS AM. PT.REQUESTED PRN DIALUDID 4MG PO AT 0340 WITH A SIP OF WATER. C/O 8/10 LEFT FOOT PAIN. PT.CONTINUED TO REST AFTER, UNTIL SIGNING OF THIS NOTE. NO ACUTE EVENTS/DISTRESS NOTED/REPORTED DURING THIS SHIFT. BED AT THE LOWEST POSITION, CALL LIGHT IN REACH.
[2024-04-21 05:59] LABS: Hematocrit 26.5 % (33.0-51.0); Hemoglobin 8.3 g/dL (11.5-16.0); Mean Corpuscular HGB 28.4 pg (26.0-34.0); Mean Corpuscular HGB Conc 31.3 g/dL (31.5-36.5); Mean Corpuscular Volume 91 fL (80-100); Mean Platelet Volume 11.1 fL (9.1-12.4); Platelet Count 142 K/mm3 (150-400); RDW Coefficient Variation 16.6 % (11.7-14.2); RDW Standard Deviation 55.2 fL (35.1-46.3); Red Blood Cell Count 2.92 M/mm3 (3.80-5.20); White Blood Cell Count 4.88 K/mm3 (4.00-11.30)
[2024-04-21 06:29] LABS: Bun/Creatinine Ratio 15.4 (12.0-20.0); Calcium, Blood 8.5 mg/dL (8.5-10.1); Creatinine, Blood 1.04 mg/dL (0.40-1.00); Magnesium, Blood 1.6 mg/dL (1.6-2.4)
[2024-04-21 06:57] LABS: BAND PERCENT MAN 1 % (0-8); BASOPHILS ABSOLUTE MAN 0.04 K/mm3 (0.00-0.23); BASOPHILS PERCENT MAN 1 % (0-2); EOSINOPHILS ABSOLUTE MAN 0.29 K/mm3 (0.00-0.68); EOSINOPHILS PERCENT MAN 6 % (0-6); LYMPHOCYTES ABSOLUTE MAN 1.41 K/mm3 (0.84-5.20); LYMPHOCYTES PERCENT MAN 29 % (21-46); MONOCYTES ABSOLUTE MAN 0.43 K/mm3 (0.16-1.47); MONOCYTES PERCENT MAN 9 % (4-13); NEUTROPHILS ABSOLUTE MAN 2.68 K/mm3 (1.96-9.15); SEG NEUTROPHILS PERCENT MAN 54 % (41-73); TOTAL CELLS COUNTED 100
[2024-04-21] MEDS ORDERED: propofoL 20 ML IV ONE (07:51)
[2024-04-21] MEDS ORDERED: Bupivacaine 0.5% Inj 10 ML Vial ONE (07:52)
[2024-04-21] MEDS ORDERED: Ropivacaine 0.5% HCl/Pf 5 MG/ML 20ML VIAL ONE (07:57)
[2024-04-21] MEDS ORDERED: Dexamethasone Sod Phos 10 MG/ML 1ML VIAL ONE (08:05)
[2024-04-21] MEDS ORDERED: CeFAZolin Sodium 2,000 MG VIAL ONE (08:26)
[2024-04-21] MEDS ORDERED: Midazolam HCl 1MG / ML 2ML Vial ONE (08:28)
[2024-04-21] MEDS ORDERED: FentaNYL Citrate 50 MCG/ML 2 ML Injection ONE (08:28)
[2024-04-21] MEDS ORDERED: Ondansetron HCl 2 MG / ML 2ML Vial ONE (08:45)
--- NOTE | 2024-04-21 10:32 | NUR ---
0818- PATIENT LEFT FLOOR WITH SURGICAL STAFF. ANXIOUS AT THIS TIME. GIVEN DILAUDED PRIOR FOR PAIN RELIEF.
[2024-04-21] MEDS ORDERED: HYDROmorphone HCl/Pf 1MG SYR ONE (10:35)
--- NOTE | 2024-04-21 11:42 | NUR ---
PATIENT RETURNING FROM RECOVERY AT THIS TIME. C/O PAIN TO LEFT LEG. WOUND VAC IN PLACE. TELE IN PLACE AND FUNCTIONING.
--- NOTE | 2024-04-21 15:17 | NUR ---
SON MATILDA IN ROOM WHEN THIS RN RETURN FROM LUNCH. HEARD SON MAKING UNKIND STATEMENTS IN RAISED VOICE TO PATIENT, "YOU DON'T HAVE ANY ONE WHO CARES ABOUT YOU, ONLY DAVIN AND SHE IS ABOUT DONE WITH YOUR SHIT, YOU'VE PUSHED EVERYONE ELSE AWAY". SON WALKED BRISKLY OUT OF ROOM AFTER THIS STATEMENT AND LEFT UNIT, HE WAS EXITING DOOR HE SAID TO RN, "DON'T BE SORRY, THIS IS MY FUCKING LIFE" AND YELLED "LAZARO MCCAULEY". THIS RN INFORMED PATIENT THAT THIS BEHAVIOR WON'T BE TOLERATED, THE GOAL IS TO CREATE A CALM HEALING ENVIRONMENT. THAT HE WOULD BE ASKED NOT TO COME BACK IF HIS BEHAVIOR CONTINUED, PATIENT STATED IF WE DID THIS THEN SHE WOULD LEAVE AMA. CHARGE NURSE INFORMED AND IT WAS AGREED THAT SON'S BEHAVIOR WOULD BE ASSESSED IF HE RETURNED. SECURITY ALSO GIVEN THIS INFORMATION. PATIENT STATED SHE WOULD HAVE CONVERSATION WITH HIM ABOUT HIS APPROPRIATENESS WHILE IN THE HOSPITAL.
--- NOTE | 2024-04-21 16:27 | NUR ---
PATIENT SON WAS IN ROOM, BROUGHT SEVERINO FOR PATIENT. THIS RN HAD CONVERSATION WITH SON ON ARRIVAL REGARDING HIS NEED FOR APPROPRIATE BEHAVIOR AND ASSISTING WITH PROMOTING A HEALING ENVIRONMENT FOR HIS MOM. STATED HE IS 100% ON BOARD WITH BEING CALM AND ACTING APPROPRIATE. WITHIN A FEW MINUTES HE WAS RAISING HIS VOICE AND USING AGRESSIVE LANGUAGE TOWARD PATIENT. WILLOW ANALYST ALERTED NURSE AND CHARGE, SON LEFT PROMPTLY UPON, PRESUMING HE OVERHEARD THE CONVERSATION THAT HE NEEDED TO LEAVE AND CHARGE WAS ON HER WAY TO THE ROOM TO ESCORT HIM OUT.
[2024-04-21] MEDS ORDERED: FentaNYL Citrate 50 MCG/ML 2 ML Injection IV PRN (17:10)
--- NOTE | 2024-04-21 17:10 | NUR ---
PATIENT COMPLAINTS OF PAIN NOT BEING CONTROLLED WITH CURRENT DILAUDED DOSING. DR HOPSON OKAYED ADDITIONAL PAIN MEDICATIONS, PLACED ORDER. PULSE OX IN PLACE. ON ROOM AIR, 1 LITER NASAL CANNULA WHILE SLEEPING.
--- NOTE | 2024-04-22 03:13 | NUR ---
SHIFT SUMMARY Pt. is alert, sitting on the side of the bed, post op evening #1. Pt. reports having phantom pain 7-9/10on left bka. Medicated q4-6hrs t/o the night, rotating between Dialudid Po, and Fetanyl 25mcg IV. LE's elevated with pillows. Seroquel helpful at HS per pt.report. O2 1 liter via nc. Noted that HR and O2 sats more stable when pt. is receiving o2. HR<110, o2 92-94%. Telemetry: Sinus Tachycardia 93. Pt. denies chest pain, SOB, and n/v. No cough noted, LS clear UL's and diminished LL's, pt. has resting/eyes closed comfortably t/o this shift, she had a snack at HS with meds. Bowel tones are hypoactive, encouraged fluids, H2o and fiber. No acute events/distress noted/reported. Bed at the lowest position, call light in reach. Will handoff to the incoming shift nurse.
[2024-04-22 03:18] VITALS: BP 116/60
[2024-04-22 06:30] LABS: BASOPHILS ABSOLUTE AUTO 0.02 K/mm3 (0.00-0.23); BASOPHILS PERCENT AUTO 0 % (0-2); EOSINOPHILS PERCENT AUTO 0 % (0-6); Hematocrit 25.6 % (33.0-51.0); Hemoglobin 7.8 g/dL (11.5-16.0); IMMATURE GRAN ABSOLUTE AUTO 0.12 K/mm3 (0.00-0.10); IMMATURE GRAN PERCENT AUTO 2 % (0-1); LYMPHOCYTES ABSOLUTE AUTO 1.25 K/mm3 (0.84-5.20); LYMPHOCYTES PERCENT AUTO 15 % (21-46); MONOCYTES ABSOLUTE AUTO 1.17 K/mm3 (0.16-1.47); MONOCYTES PERCENT AUTO 14 % (4-13); Mean Corpuscular HGB Conc 30.5 g/dL (31.5-36.5); Mean Corpuscular Volume 92 fL (80-100); Mean Platelet Volume 11.4 fL (9.1-12.4); NEUTROPHILS ABSOLUTE AUTO 5.59 K/mm3 (1.96-9.15); NEUTROPHILS PERCENT AUTO 69 % (41-73); Platelet Count 142 K/mm3 (150-400); RDW Coefficient Variation 16.1 % (11.7-14.2); RDW Standard Deviation 53.7 fL (35.1-46.3); Red Blood Cell Count 2.79 M/mm3 (3.80-5.20); White Blood Cell Count 8.15 K/mm3 (4.00-11.30)
[2024-04-22 06:49] LABS: Bun/Creatinine Ratio 18.3 (12.0-20.0); Calcium, Blood 8.5 mg/dL (8.5-10.1); Creatinine, Blood 1.15 mg/dL (0.40-1.00); Potassium, Blood 4.4 mmol/L (3.5-5.5)
[2024-04-22 07:18] VITALS: BP 128/64
[2024-04-22 15:31] VITALS: BP 126/64
--- NOTE | 2024-04-22 17:01 | NUR ---
SHIFT SUMMARY PATIENT USED KARISHMA TO GET TO CHAIR THIS SHIFT, ATTEMPTED 2 PERSON GAIT BELT TRANSFER WITH WALKER, WAS UNSUCCESSFUL. C/O PAIN TO PHANTOM LIMB. DR PINEDA IN TO CHANGE RONEL VAC THIS SHIFT. INCISION IS CLOSED WITH TIEN, CLEAN DRY, NO APPARENT SIGNS OF INFECTION. A/O X4. NO FAMILY VISITING THIS SHIFT. ABLE TO MAKE NEEDS KNOWN. CALL LIGHT IN REACH, CARES ONGOING.
[2024-04-22 19:40] VITALS: BP 135/60
[2024-04-23 04:25] VITALS: BP 138/84
--- NOTE | 2024-04-23 05:07 | NUR ---
SHIFT SUMMARY PT IS A&OX3-4. PLEASANT AND COOPERATIVE WITH CARES. C/O INCISIONAL PAIN 07/19, MANAGED WITH 4MG PO DILAUDID Q4. DRESSING TO LEFT STUMP, C/D/I. TOLERATING A HEART HEALTHY DIET. WICKING SYSTEM DRAINING CLEAR YELLOW URINE. NO BM THIS SHIFT. X2 ASSIST IN BED R/T PAIN, NOOB THIS SHIFT. BED IN LOWEST POSITION, CALL LIGHT WITHIN REACH.
[2024-04-23 07:39] VITALS: BP 144/83
[2024-04-23] MEDS ORDERED: Aspirin 81 MG TabEC PO SCH (09:00)
[2024-04-23 14:48] VITALS: BP 152/80
[2024-04-23 16:16] VITALS: BP 120/70
--- NOTE | 2024-04-23 16:54 | NUR ---
SUMMARY PT IS ALERT AND ORIENTED X3. FORGETFUL AT TIMES. PT REPORTS FANTOM PAIN. TREATED PER EMAR. CURRENTLY ON 1L N/C WHILE SLEEPING, R/A FOR THE MAJORITY OF THE SHIFT. SAT >90%. PT FAMILY AT BEDSIDE EARLIER THIS SHIFT. PT IS A LIFT PT. SHE REPORTS SITTING IN CHAIR IS NOT TOLORABLE FOR HER. ATTEMPTED STAND PIVOT WITH 2 PERSON, GAIT BELT, AND FWW. UNABLE TO DO SO SAFELY. PT REMAINS A LIFT PT AT THIS TIME. DECLINED SITTING IN CHAIR THIS AFTERNOON DUE TO PAIN. ABLE TO MAKE NEEDS KNOWN. BED IS IN THE LOWEST POSITION WITH CALL LIGHT IN REACH. DRESSING AND RONEL VAC LEFT UNTOUCHED. CAROL BANDAGE C/D/I
[2024-04-23 19:54] VITALS: BP 124/67
[2024-04-23] MEDS ORDERED: Heparin Sodium,Porcine 5,000 UNIT/0.5 ML SDV SC SCH (21:00)
[2024-04-24 03:43] VITALS: BP 134/77
--- NOTE | 2024-04-24 05:51 | NUR ---
SHIFT SUMMARY PT IS A&OX3-4, OFF ON DATE. PLEASANT AND COOPERATIVE WITH CARES. NO ACUTE CHANGES OR EVENTS THIS SHIFT. VSS ON 1L NC, AFEBRILE. PER TELEMETRY PT REMAINS ST @ 108. C/O LEFT STUMP INCISIONAL PAIN 05/19, MANAGED WITH 4MG PO DILAUDID Q4. THIS RN GAVE 25MCG OF IV FENTANYL WITH LITTLE EFFECT. DRESSING TO LEFT STUMP, C/D/I, WITH RONEL DRESSING IN PLACE. TOLERATING A HEART HEALTHY DIET. WICKING SYSTEM DRAINING CLEAR YELLOW URINE. NO BM THIS SHIFT. X2 ASSIST IN BED R/T PAIN, NOOB THIS SHIFT. BED IN LOWEST POSITION, CALL LIGHT WITHIN REACH.
[2024-04-24 07:30] VITALS: BP 132/76
[2024-04-24 08:46] LABS: Bun/Creatinine Ratio 23.9 (12.0-20.0); Calcium, Blood 8.6 mg/dL (8.5-10.1); Creatinine, Blood 1.09 mg/dL (0.40-1.00); Potassium, Blood 4.9 mmol/L (3.5-5.5)
[2024-04-24 15:44] VITALS: BP 118/63
[2024-04-24 16:30] LABS: Hematocrit 28.9 % (33.0-51.0); Hemoglobin 8.8 g/dL (11.5-16.0); Mean Corpuscular HGB 27.8 pg (26.0-34.0); Mean Corpuscular HGB Conc 30.4 g/dL (31.5-36.5); Mean Corpuscular Volume 92 fL (80-100); Mean Platelet Volume 11.1 fL (9.1-12.4); Platelet Count 185 K/mm3 (150-400); RDW Coefficient Variation 15.5 % (11.7-14.2); RDW Standard Deviation 51.8 fL (35.1-46.3); Red Blood Cell Count 3.16 M/mm3 (3.80-5.20); White Blood Cell Count 5.79 K/mm3 (4.00-11.30)
--- NOTE | 2024-04-24 17:45 | NUR ---
SHIFT SUMMARY PATIENT ALERT AND INTERACIVE. PATIENT LABILE WITH MOOD BUT OVERALL COOPERATIVE TODAY. PATIENT UP TO CHAIR WITH LIFT X1 AND UP WITH PIVOT TRANSFER TO THE TOILET THEN CHAIR. PATIENT ABLE TO STAND MULTIPLE TIMES FROM CHAIR. PATIENT CONTINUES TO HAVE PAIN IN L BKA AND BACK. PATIENT MEDICATED WITH PAIN MEDICATIONS PER DEC. PATIENT BATHED AND LINENS CHANGED. PATIENT DEMONSTRATED THE ABILITY TO PIVOT TRANSFER BUT WAS VERY ANXIOUS DURING TRANSFER. PATIENT FEARFUL AT FALLING AND PUTTING HERSELF AT RISK FOR FALLING BECAUSE OF ANXIETY AND BEHAVIOR. DAUGHTER LEFT BACK TO [place]. RE DISCUSSED NEED FOR REHAB. PATIENT RELUCTANT TO GO TO REHAB. DAUGHTER REINFORCED NEED BECAUSE OF SITUATION AT HOME.
[2024-04-24 21:03] VITALS: BP 124/63
[2024-04-25 04:00] VITALS: BP 115/66
--- NOTE | 2024-04-25 06:21 | NUR ---
SHIFT SUMMARY PT IS A&OX3-4, OFF ON DATE. MOOD IS LABILE BUT COOPERATIVE WITH CARES. NO ACUTE CHANGES OR EVENTS THIS SHIFT. VSS ON 1L NC, AFEBRILE. PER TELEMETRY PT REMAINS ST @ 114. C/O LEFT STUMP INCISIONAL PAIN 05/19, MANAGED WITH 4MG PO DILAUDID Q4. PT SLEPT WELL T/O THE NOC. DRESSING TO LEFT STUMP, C/D/I, WITH RONEL DRESSING IN PLACE. TOLERATING A HEART HEALTHY DIET. WICKING SYSTEM DRAINING CLEAR YELLOW URINE. NO BM THIS SHIFT. X2 ASSIST IN BED R/T PAIN, NOOB THIS SHIFT. BED IN LOWEST POSITION, CALL LIGHT WITHIN REACH.
[2024-04-25 07:10] VITALS: BP 143/70
[2024-04-25 15:40] VITALS: BP 123/72
--- NOTE | 2024-04-25 17:53 | NUR ---
SHIFT SUMMARY PATIENT ALERT AND INTERACTIVE. PATIENT NOT WILLING TO GET UP TO CHAIR TODAY BUT DID GET UP TO COMMODE X3. PATIENT STOOD AND TRANSFERED TO COMMODE WITH WALKER AND CUEING. PATIENT CONTINUES TO GET ANXIOUS WITH TRANSFERING. THERAPY PRESENT WIHT 3RD TRANSFER AND ABLE TO DO SOME EXERCISES WITH HER. PATIENT INCONTINENT AT TIMES AND UNAWARE THAT SHE WAS. PATIENT CONTINUES TO BE TEARFUL AT TIMES AND STATING SHE WANTS TO GO HOME.
[2024-04-25 19:25] VITALS: BP 113/59
[2024-04-26 05:01] VITALS: BP 140/73
[2024-04-26 07:34] VITALS: BP 124/68
[2024-04-26 15:39] VITALS: BP 118/75
--- NOTE | 2024-04-26 18:30 | NUR ---
PATIENT A/OX4 THIS SHIFT, UP WITH 2 ASSIST TO BSC AND CHAOR FOR MEALS. PAIN CONTROLLED WITH PO DILAUDID AND TYLENOL. DRESSING TO L BKA SITE REMAINS C/D/I, RONEL DRAIN IN PLACE. VSS, ON 2LO2 TO MAINTAIN SATS. SLEEP STUDY ORDERED FOR [place] SON IN TODAY AND PICKED UP PRESCRIPTIONS FOR DME AND OBTAINED THOSE FROM [facility]. PLAN IS TO DC HOME WITH HOME HEALTH TOMORROW.
[2024-04-26] MEDS ORDERED: Aspir 8181 MG PO (18:36)
[2024-04-26 20:09] VITALS: BP 129/74
[2024-04-26] MEDS ORDERED: PREG200 PO (20:59)
[2024-04-26] MEDS ORDERED: Zolpidem Tartrate 10 MG Tab PO ONE (21:10)
[2024-04-27 02:29] VITALS: BP 126/70
--- NOTE | 2024-04-27 07:26 | NUR ---
SHIFT SUMMARY: PATIENT IS IN GOOD SPIRITS THIS SHIFT. HAPPY TO BE GOING HOME TODAY. SLEEP STUDY WAS COMPLETED DURING THE NIGHT. PATIWNT REQUESTED AMBIEN WHICH SHE REPORTED SHE TAKES AT HOME. WIRE MILL OPERATOR MD WAS NOTIFIED AND ORDER FOR 10MG OF AMBIEN WAS OBTAINED AND GIVEN WITH GOOD EFFECT. PATIENT IS CONCERNED THAT NORCO WAS ORDRED FOR PAIN CONTROL AT HOME. PATIENT REPORTS NORCO HAS NOT WORKED WELL FOR HER IN THE PAST. PATIENT USED THE BEDPAN INSTEAD OF A PERWICK THROUGH THE NIGHT.
[2024-04-27 07:36] VITALS: BP 136/69
[2024-04-27] MEDS ORDERED: QUET25 PO (14:41)
--- NOTE | 2024-04-27 15:39 | NUR ---
DISCHARGED HOME WITH SON, PATIENT AND SON STATED NO FURTHER QUESTIONS AND UNDERSTANDING OF MEDICATIONS AND FOLLOW UP NEEDS, DRSG CHANGED TODAY BY DR VAN WHITAKER, PATIENT TOLERATED WELL, LEFT VIA W/C, BEING TRANSPORTED HOME
== END 2024-04-27 15:33 | disposition home health service (06) | DRG 239 ==
LOC: ER 15:13 → MEDS 23:09 → PCU 23:09 → MEDS 03-25 13:36 → PCU 03-27 18:58 → MEDS 03-31 17:50 → DELPENDDIS 04-04 11:01 → ENPENDDIS 04-04 11:01 → MEDS 04-04 11:47
PROVIDERS: Family Medicine; Hospitalist; Internal Medicine; Nurse Practitioner; Orthopaedic Surgery; ADMIT Student in an Organized Health Care Education/Training Program
PROC: 047W3ZZ Dilation of Left Foot Artery, Percutaneous Approach (ICD-10-PCS; 2024-03-27)
PROC: 047Q3ZZ Dilation of Left Anterior Tibial Artery, Percutaneous Approach (ICD-10-PCS; 2024-03-27)
PROC: 047D3ZZ Dilation of Left Common Iliac Artery, Percutaneous Approach (ICD-10-PCS; 2024-03-27)
PROC: B41D1ZZ Fluoroscopy of Aorta and Bilateral Lower Extremity Arteries using Low Osmolar Contrast (ICD-10-PCS; 2024-03-27)
PROC: 0Y6J0Z1 Detachment at Left Lower Leg, High, Open Approach (ICD-10-PCS; principal; 2024-04-21 08:00)
DX: I70.262 Atherosclerosis of native arteries of extremities with gangrene, left leg (principal); G93.41 Metabolic encephalopathy; J96.01 Acute respiratory failure with hypoxia; U07.1 COVID-19; L03.116 Cellulitis of left lower limb; D62 Acute posthemorrhagic anemia; E46 Unspecified protein-calorie malnutrition; Z66 Do not resuscitate; I95.9 Hypotension, unspecified; D63.8 Anemia in other chronic diseases classified elsewhere; D50.9 Iron deficiency anemia, unspecified; E78.5 Hyperlipidemia, unspecified; G62.9 Polyneuropathy, unspecified; F17.210 Nicotine dependence, cigarettes, uncomplicated; J44.9 Chronic obstructive pulmonary disease, unspecified; F03.90 Unspecified dementia, unspecified severity, without behavioral disturbance, psychotic disturbance, mood disturbance, and anxiety; E87.6 Hypokalemia; E86.0 Dehydration; I12.9 Hypertensive chronic kidney disease with stage 1 through stage 4 chronic kidney disease, or unspecified chronic kidney disease; N18.9 Chronic kidney disease, unspecified; G89.29 Other chronic pain; M54.9 Dorsalgia, unspecified; G47.00 Insomnia, unspecified; L97.529 Non-pressure chronic ulcer of other part of left foot with unspecified severity; Z95.820 Peripheral vascular angioplasty status with implants and grafts; Z68.27 Body mass index [BMI] 27.0-27.9, adult
CPT/HCPCS: 0241U; 36415; 36600; 37220; 37228; 37232; 70450; 71045; 73630; 75625; 75635; 75716; 75774; 76937; 80048; 80053; 80069; 82140; 82272; 82607; 82728; 82746; 82803; 82947; 83540; 83550; 83605; 83735; 83880; 84100; 84132; 84443; 85014; 85018; 85025; 85027; 85049; 85520; 85610; 85651; 85730; 86140; 87040; 87426; 87811; 88307; 93005; 93010; 94640; 94664; 94760; 94761; 94762; 96365-59; 96367-59; 96375-59; 96376-59; 97110; 97129; 97162; 97166; 97530; 97535; 99152; 99153; 99285-25; A9270; C1725; C1751; C1760; C1769; C1887; C1894; J0360; J0690; J0692; J1100; J1170; J1644; J1885; J2250; J2270; J2405; J2704; J2795; J2916; J3010; J3411; J3475; J3480; J7030; J7040; J7050; J7060; J7120; Q9967

== ENCOUNTER → 2024-04-29 | Emergency (ER) | payer MEDICARE ==
[~2024-04-29] VITALS: Ht 165.1 cm; Wt 81.2 kg
[~2024-04-29] MED LIST changes: +ACET325 PO; +BISA10S PR; +CEFEPIME HCL1 G1 IV; +DOCU100 PO; +FERSU300 PO; +HYDMOR2 PO; +HYDROcodone 5-APAP 325 TAB PO ONE; +Nicoderm Cq1 EAC1 TOP; +PREG200 PO; +QUET25 PO; +RX Prepack 6 Tabs Oxycodone 5mg UD ONE; +SENN187 PO; +XARELTO20 MG PO
[2024-04-29 21:30] VITALS: BP 154/88
== END ==
LOC: ER 19:37
DX: S39.012A Strain of muscle, fascia and tendon of lower back, initial encounter (principal); F17.210 Nicotine dependence, cigarettes, uncomplicated; W01.0XXA Fall on same level from slipping, tripping and stumbling without subsequent striking against object, initial encounter; Z88.0 Allergy status to penicillin; Z91.02 Food additives allergy status; Z88.5 Allergy status to narcotic agent; Z79.02 Long term (current) use of antithrombotics/antiplatelets; Z79.82 Long term (current) use of aspirin; Z79.899 Other long term (current) drug therapy
CPT/HCPCS: A9270

== ENCOUNTER 2024-07-10 15:01 | Emergency (ER) | payer MEDICARE, OTHER ==
[~2024-07-10] VITALS: Ht 165.1 cm; Wt 27.2 kg
[~2024-07-10 15:01] MED LIST changes: -HYDROcodone 5-APAP 325 TAB PO ONE; -RX Prepack 6 Tabs Oxycodone 5mg UD ONE
[2024-07-10 16:51] LABS: BASOPHILS ABSOLUTE AUTO 0.05 K/mm3 (0.00-0.23); BASOPHILS PERCENT AUTO 1 % (0-2); EOSINOPHILS ABSOLUTE AUTO 0.18 K/mm3 (0.00-0.68); EOSINOPHILS PERCENT AUTO 4 % (0-6); Hematocrit 44.4 % (33.0-51.0); Hemoglobin 14.2 g/dL (11.5-16.0); IMMATURE GRAN ABSOLUTE AUTO 0.01 K/mm3 (0.00-0.10); IMMATURE GRAN PERCENT AUTO 0 % (0-1); LYMPHOCYTES ABSOLUTE AUTO 1.41 K/mm3 (0.84-5.20); LYMPHOCYTES PERCENT AUTO 33 % (21-46); MONOCYTES ABSOLUTE AUTO 0.33 K/mm3 (0.16-1.47); MONOCYTES PERCENT AUTO 8 % (4-13); Mean Corpuscular HGB 27.4 pg (26.0-34.0); Mean Corpuscular Volume 86 fL (80-100); Mean Platelet Volume 9.8 fL (9.1-12.4); NEUTROPHILS ABSOLUTE AUTO 2.29 K/mm3 (1.96-9.15); NEUTROPHILS PERCENT AUTO 54 % (41-73); Platelet Count 158 K/mm3 (150-400); RDW Coefficient Variation 15.6 % (11.7-14.2); RDW Standard Deviation 48.9 fL (35.1-46.3); Red Blood Cell Count 5.19 M/mm3 (3.80-5.20); White Blood Cell Count 4.27 K/mm3 (4.00-11.30)
[2024-07-10 17:37] LABS: Alanine Aminotransfer (ALT/SGP 39 U/L (12-78); Albumin, Blood 3.4 g/dL (3.4-5.0); Alk Phos 149 U/L (50-136); Anion Gap 11 mmol/L (3-11); Aspartate Aminotrans (AST/SGOT 38 U/L (12-37); Bilirubin, Total 0.5 mg/dL (0.1-1.0); Blood Urea Nitrogen 25 mg/dL (8-24); Bun/Creatinine Ratio 25.9 (12.0-20.0); CO2, Blood 24 mmol/L (21-32); Calcium, Blood 9.6 mg/dL (8.5-10.1); Chloride, Blood 108 mmol/L (98-108); Creatinine, Blood 0.96 mg/dL (0.40-1.00); Ethanol (Alcohol), Blood, Med <3 mg/dL; Globulin, Blood 3.3 g/dL (2.2-4.0); Glomerular Filtration Rate 64 (60-); Glucose, Blood 78 mg/dL (70-99); Potassium, Blood 4.6 mmol/L (3.5-5.5); Sodium, Blood 138 mmol/L (136-145); Total Protein, Blood 6.7 g/dL (6.4-8.2)
[2024-07-10] MEDS ORDERED: HYDACE10B PO (19:39)
[2024-07-10] MEDS ORDERED: HYDROcodone 5-APAP 325 TAB PO ONE (20:25)
[2024-07-10 21:03] VITALS: BP 155/84
[2024-07-10 21:18] LABS: U Amphetamine Screen Not Detected; U Barbituate Screen Not Detected; U Benzodiazapine Screen Not Detected; U Buprenorphine Screen Not Detected; U Cannabinoids Screen Not Detected; U Cocaine Screen Not Detected; U Methadone Screen Not Detected; U Methamphetamine Screen Not Detected; U Opiates Screen DETECTED; U Phencyclidine Screen Not Detected
[2024-07-10 21:19] LABS: U Oxycodone Screen Not Detected
== END 2024-07-10 21:05 | disposition home or self-care (01) ==
LOC: ER 15:01
PROVIDERS: Physician Assistant
DX: M25.562 Pain in left knee (principal); Z89.512 Acquired absence of left leg below knee; E78.5 Hyperlipidemia, unspecified; F17.210 Nicotine dependence, cigarettes, uncomplicated; Z79.899 Other long term (current) drug therapy; Z88.0 Allergy status to penicillin; Z88.5 Allergy status to narcotic agent; Z91.018 Allergy to other foods; Z88.8 Allergy status to other drugs, medicaments and biological substances
CPT/HCPCS: 80053; 80320; 85025; 99285; A9270

== ENCOUNTER 2024-08-09 10:00 | Emergency (ER) | payer MEDICARE, OTHER ==
[~2024-08-09] VITALS: Ht 157.5 cm; Wt 70.3 kg
[~2024-08-09 10:00] MED LIST changes: +HYDACE10B PO
[2024-08-09] MEDS ORDERED: CYMBALTA20 M2 PO (10:41)
[2024-08-09] MEDS ORDERED: LORazepam 2 MG/ML 1ML Injection IV ONE (10:45)
[2024-08-09 11:05] LABS: BASOPHILS ABSOLUTE AUTO 0.05 K/mm3 (0.00-0.23); BASOPHILS PERCENT AUTO 1 % (0-2); EOSINOPHILS ABSOLUTE AUTO 0.33 K/mm3 (0.00-0.68); EOSINOPHILS PERCENT AUTO 5 % (0-6); Hematocrit 45.4 % (33.0-51.0); Hemoglobin 14.5 g/dL (11.5-16.0); IMMATURE GRAN ABSOLUTE AUTO 0.09 K/mm3 (0.00-0.10); IMMATURE GRAN PERCENT AUTO 1 % (0-1); LYMPHOCYTES ABSOLUTE AUTO 1.77 K/mm3 (0.84-5.20); LYMPHOCYTES PERCENT AUTO 28 % (21-46); MONOCYTES ABSOLUTE AUTO 0.54 K/mm3 (0.16-1.47); MONOCYTES PERCENT AUTO 9 % (4-13); Mean Corpuscular HGB 27.7 pg (26.0-34.0); Mean Corpuscular HGB Conc 31.9 g/dL (31.5-36.5); Mean Corpuscular Volume 87 fL (80-100); Mean Platelet Volume 9.4 fL (9.1-12.4); NEUTROPHILS ABSOLUTE AUTO 3.55 K/mm3 (1.96-9.15); NEUTROPHILS PERCENT AUTO 56 % (41-73); Platelet Count 164 K/mm3 (150-400); RDW Coefficient Variation 16.8 % (11.7-14.2); RDW Standard Deviation 51.6 fL (35.1-46.3); Red Blood Cell Count 5.24 M/mm3 (3.80-5.20); White Blood Cell Count 6.33 K/mm3 (4.00-11.30)
[2024-08-09] MEDS ORDERED: Ondansetron HCl 2 MG / ML 2ML Vial IV ONE (11:15)
[2024-08-09] MEDS ORDERED: FentaNYL Citrate 50 MCG/ML 2 ML Injection IV ONE (11:15)
[2024-08-09 11:35] LABS: Albumin, Blood 3.7 g/dL (3.4-5.0); Albumin/Globulin Ratio 1.1 (0.8-1.8); Bilirubin, Total 0.3 mg/dL (0.1-1.0); Bun/Creatinine Ratio 33.8 (12.0-20.0); Calcium, Blood 9.3 mg/dL (8.5-10.1); Creatinine, Blood 0.92 mg/dL (0.40-1.00); Globulin, Blood 3.3 g/dL (2.2-4.0)
[2024-08-09 12:30] VITALS: BP 139/80
[2024-08-09] MEDS ORDERED: HYDROmorphone HCl/Pf 1MG SYR IV ONE (12:30)
[2024-08-09] MEDS ORDERED: Percocet 5-3251 EACH PO (13:18)
== END 2024-08-09 14:07 | disposition home or self-care (01) ==
LOC: ER 10:00
PROVIDERS: Emergency Medicine
DX: G62.9 Polyneuropathy, unspecified (principal); E78.5 Hyperlipidemia, unspecified; F17.210 Nicotine dependence, cigarettes, uncomplicated; Z86.79 Personal history of other diseases of the circulatory system; Z79.899 Other long term (current) drug therapy; Z88.0 Allergy status to penicillin; Z88.5 Allergy status to narcotic agent; Z91.018 Allergy to other foods; Z88.8 Allergy status to other drugs, medicaments and biological substances
CPT/HCPCS: 80053; 85025; 93925; 96374; 96375; 99284-25; J1171; J2060; J2405; J3010

== ENCOUNTER 2024-10-12 07:02 | Day surgery (SDC) | payer MEDICARE, OTHER ==
[~2024-10-12] VITALS: Ht 165.1 cm; Wt 64.0 kg
[~2024-10-12 07:02] MED LIST changes: +Percocet 5-3251 EACH PO
[2024-10-12] MEDS ORDERED: Lactated Ringer's 1,000 ML IV SCH (07:05)
[2024-10-12 07:41] VITALS: BP 134/84
--- NOTE | 2024-10-12 08:32 | NUR ---
Patient has had total four IV attemps by two RNs, including use of US, to obtain IV access. Patient agrees to continue despite verbalizing c/o of discomfort with IV attempts. Filomena Camacho CRNA, at bedside, and agrees to attempt IV access. Bear Hugger in place to warm extremities.
[2024-10-12] MEDS ORDERED: propofoL 40 ML IV ONE (08:35)
--- NOTE | 2024-10-12 08:37 | NUR ---
Pt is very difficult marisa-puncture. After first failed attempt at iv, pt yelled at this rn "don't you know what you are doing? That really hurt!" Lauren, insulation cupola charger summoned to bedside-lidocaine utilized for 2 attempts for iv. Pt appears extremely anxious. Ultrasound iv attempted by this rn unsuccessfully. Pt states "isn't there anyone else in this hospital that knows what they are doing?" Both insulation cupola charger and this rn attempting to console pt. Pt yelled at this rn "i don't want to hear it! Just get it done! " Filomena Camacho to attempt to place iv.
--- NOTE | 2024-10-12 09:01 | NUR ---
TOTAL OF 7 IV ATTEMPS MADE, WITH ONLY 3 BY ROSALES CAPONE CRNA.
--- NOTE | 2024-10-12 09:04 | NUR ---
10/12/24 0904 Reyna Brewer MONITOR INTACT WITH CONTINUOUS PULSE OXIMETRY, CONTINUOUS END TITAL CO2, AND INTERMITTENT BLOOD PRESSURE.
[2024-10-12 09:58] VITALS: BP 137/92
--- NOTE | 2024-10-12 10:23 | NUR ---
Discharge instructions reviewed with patient. Patient verbalizes understanding. Copy given to patient to take home. Patient States Post-Procedure ride home has been arranged. Discharged via wheelchair to private car for ride home. all belongings returned to patient to include cellphone.
[2024-10-12 10:24] VITALS: BP 128/73
== END 2024-10-12 10:25 | disposition home or self-care (01) ==
LOC: ORSCMMR 07:02 → ORD 08:30 → ORSCMMR 10:25
PROVIDERS: Surgery
PROC: 0DB98ZX Excision of Duodenum, Via Natural or Artificial Opening Endoscopic, Diagnostic (ICD-10-PCS; principal; 2024-10-12 08:30)
PROC: 0DB78ZX Excision of Stomach, Pylorus, Via Natural or Artificial Opening Endoscopic, Diagnostic (ICD-10-PCS; principal; 2024-10-12 08:30)
PROC: 0DBK8ZX Excision of Ascending Colon, Via Natural or Artificial Opening Endoscopic, Diagnostic (ICD-10-PCS; principal; 2024-10-12 08:30)
PROC: 0DBP8ZX Excision of Rectum, Via Natural or Artificial Opening Endoscopic, Diagnostic (ICD-10-PCS; principal; 2024-10-12 08:30)
PROC: 0DBN8ZX Excision of Sigmoid Colon, Via Natural or Artificial Opening Endoscopic, Diagnostic (ICD-10-PCS; principal; 2024-10-12 08:30)
PROC: 0DBM8ZX Excision of Descending Colon, Via Natural or Artificial Opening Endoscopic, Diagnostic (ICD-10-PCS; principal; 2024-10-12 08:30)
PROC: 0DB48ZX Excision of Esophagogastric Junction, Via Natural or Artificial Opening Endoscopic, Diagnostic (ICD-10-PCS; principal; 2024-10-12 08:30)
DX: R13.10 Dysphagia, unspecified (principal); K29.80 Duodenitis without bleeding; Z12.11 Encounter for screening for malignant neoplasm of colon; Z86.0101 Personal history of adenomatous and serrated colon polyps; D12.2 Benign neoplasm of ascending colon; D12.4 Benign neoplasm of descending colon; D12.5 Benign neoplasm of sigmoid colon; D12.8 Benign neoplasm of rectum; K62.1 Rectal polyp; K57.30 Diverticulosis of large intestine without perforation or abscess without bleeding; K44.9 Diaphragmatic hernia without obstruction or gangrene; K57.10 Diverticulosis of small intestine without perforation or abscess without bleeding; K64.8 Other hemorrhoids; K64.4 Residual hemorrhoidal skin tags; K25.9 Gastric ulcer, unspecified as acute or chronic, without hemorrhage or perforation; I12.9 Hypertensive chronic kidney disease with stage 1 through stage 4 chronic kidney disease, or unspecified chronic kidney disease; N18.30 Chronic kidney disease, stage 3 unspecified; J44.9 Chronic obstructive pulmonary disease, unspecified; F17.210 Nicotine dependence, cigarettes, uncomplicated; G62.9 Polyneuropathy, unspecified; M79.7 Fibromyalgia; E78.5 Hyperlipidemia, unspecified; Z79.899 Other long term (current) drug therapy
CPT/HCPCS: 88305; 88342; J2704; J7120

== ENCOUNTER 2024-11-06 11:03 | Emergency (ER) | payer MEDICARE, OTHER ==
[~2024-11-06] VITALS: Ht 165.1 cm; Wt 67.6 kg
[2024-11-06 13:52] VITALS: BP 135/81
== END 2024-11-06 13:52 | disposition home or self-care (01) ==
LOC: ER 11:03
DX: S80.11XA Contusion of right lower leg, initial encounter (principal); S60.222A Contusion of left hand, initial encounter; Y04.0XXA Assault by unarmed brawl or fight, initial encounter; F17.210 Nicotine dependence, cigarettes, uncomplicated; Z88.0 Allergy status to penicillin; Z88.5 Allergy status to narcotic agent; Z91.018 Allergy to other foods; Z79.899 Other long term (current) drug therapy
CPT/HCPCS: 72100; 73120; 73590; 99284-25

== ENCOUNTER 2024-11-21 16:10 | Emergency (ER) | payer MEDICARE, OTHER ==
[~2024-11-21] VITALS: Ht 165.1 cm; Wt 63.5 kg
[2024-11-21 16:37] VITALS: BP 109/91
[2024-11-21 19:17] LABS: Source, Urine Clean Catch
[2024-11-21 19:24] LABS: Appearance, Urine Hazy (Clear); Blood, Urine Neg (Neg); Color, Urine Yellow (P-Yellow); Glucose Qualitative, Urine Neg (Neg); Ketones, Urine 1+ (Neg); Leukocyte Esterase, Urine 1+ (Neg); Nitrite, Urine Neg (Neg); Protein, Urine 2+ (Neg); Specific Gravity, Urine 1.025 (1.003-1.022); Urobilinogen, Urine 1+ (Normal)
[2024-11-21 19:35] LABS: Bilirubin, Urine 1+ (Neg)
[2024-11-21 19:38] LABS: Amorphous Mod (0-Heavy); Bacteria Mod /hpf; Red Blood Cells, Urine 0-2 /hpf (0-2); Squamous Epithelial Cells Few /hpf (Few)
[2024-11-21] MEDS ORDERED: HYDROcodone 10-APAP 325 TAB PO ONE (20:00)
[2024-11-21 21:16] LABS: BASOPHILS ABSOLUTE AUTO 0.08 K/mm3 (0.00-0.23); BASOPHILS PERCENT AUTO 1 % (0-2); EOSINOPHILS ABSOLUTE AUTO 0.34 K/mm3 (0.00-0.68); EOSINOPHILS PERCENT AUTO 6 % (0-6); Hematocrit 41.9 % (33.0-51.0); Hemoglobin 13.7 g/dL (11.5-16.0); IMMATURE GRAN ABSOLUTE AUTO 0.04 K/mm3 (0.00-0.10); IMMATURE GRAN PERCENT AUTO 1 % (0-1); LYMPHOCYTES ABSOLUTE AUTO 1.32 K/mm3 (0.84-5.20); LYMPHOCYTES PERCENT AUTO 23 % (21-46); MONOCYTES PERCENT AUTO 5 % (4-13); Mean Corpuscular HGB 30.2 pg (26.0-34.0); Mean Corpuscular HGB Conc 32.7 g/dL (31.5-36.5); Mean Corpuscular Volume 93 fL (80-100); Mean Platelet Volume 11.2 fL (9.1-12.4); NEUTROPHILS ABSOLUTE AUTO 3.79 K/mm3 (1.96-9.15); NEUTROPHILS PERCENT AUTO 65 % (41-73); Platelet Count 156 K/mm3 (150-400); RDW Coefficient Variation 14.6 % (11.7-14.2); RDW Standard Deviation 49.7 fL (35.1-46.3); Red Blood Cell Count 4.53 M/mm3 (3.80-5.20); White Blood Cell Count 5.87 K/mm3 (4.00-11.30)
[2024-11-21] MEDS ORDERED: HYDROcodone 5-APAP 325 TAB PO ONE (21:25)
[2024-11-21 22:04] LABS: Albumin, Blood 3.5 g/dL (3.4-5.0); Albumin/Globulin Ratio 1.2 (0.8-1.8); Bilirubin, Total 0.7 mg/dL (0.1-1.0); Bun/Creatinine Ratio 38.4 (12.0-20.0); Calcium, Blood 9.3 mg/dL (8.5-10.1); Creatinine, Blood 1.12 mg/dL (0.40-1.00); Potassium, Blood 3.8 mmol/L (3.5-5.5); Total Protein, Blood 6.5 g/dL (6.4-8.2)
[2024-11-21] MEDS ORDERED: Lidocaine 4% 1 Patch TOP ONE (22:25)
== END 2024-11-21 22:32 | disposition home or self-care (01) ==
LOC: ER 16:10
PROVIDERS: Student in an Organized Health Care Education/Training Program
DX: R74.01 Elevation of levels of liver transaminase levels (principal); S61.219A Laceration without foreign body of unspecified finger without damage to nail, initial encounter; W06.XXXA Fall from bed, initial encounter; F17.210 Nicotine dependence, cigarettes, uncomplicated; Z88.0 Allergy status to penicillin; Z88.5 Allergy status to narcotic agent; Z91.018 Allergy to other foods; Z79.899 Other long term (current) drug therapy
CPT/HCPCS: 71046; 80053; 81001; 82550; 85025; A9270

== ENCOUNTER 2024-11-23 13:44 | Emergency (ER) | payer MEDICARE, OTHER ==
[~2024-11-23] VITALS: Ht 165.1 cm; Wt 65.3 kg
[2024-11-23 18:44] VITALS: BP 128/74
== END 2024-11-23 19:02 | disposition home or self-care (01) ==
LOC: ER 13:44
DX: I73.9 Peripheral vascular disease, unspecified (principal); E78.5 Hyperlipidemia, unspecified; F17.210 Nicotine dependence, cigarettes, uncomplicated; Z89.511 Acquired absence of right leg below knee; Z79.899 Other long term (current) drug therapy; Z88.0 Allergy status to penicillin; Z88.5 Allergy status to narcotic agent; Z88.8 Allergy status to other drugs, medicaments and biological substances; Z91.018 Allergy to other foods
CPT/HCPCS: 93926

== ENCOUNTER 2025-01-22 06:03 | Emergency (ER) | payer OTHER, MEDICARE ==
[~2025-01-22] VITALS: Ht 165.1 cm; Wt 63.5 kg
[2025-01-22 06:08] VITALS: BP 127/85
== END 2025-01-22 08:05 | disposition home or self-care (01) ==
LOC: ER 06:03
DX: Z04.3 Encounter for examination and observation following other accident (principal); M54.89 Other dorsalgia; G62.9 Polyneuropathy, unspecified; Z89.512 Acquired absence of left leg below knee; Z87.891 Personal history of nicotine dependence; W05.0XXA Fall from non-moving wheelchair, initial encounter
CPT/HCPCS: 71045; 93005; 93010; 99284-25

== ENCOUNTER 2025-04-04 13:00 | Emergency (ER) | payer MEDICARE, OTHER ==
[~2025-04-04] VITALS: Ht 165.1 cm; Wt 67.1 kg
[2025-04-04] MEDS ORDERED: HYDROcodone 5-APAP 325 TAB PO ONE ×2 (14:35→16:35)
[2025-04-04 14:53] LABS: BASOPHILS ABSOLUTE AUTO 0.08 K/mm3 (0.00-0.23); BASOPHILS PERCENT AUTO 1 % (0-2); EOSINOPHILS PERCENT AUTO 5 % (0-6); Hematocrit 43.6 % (33.0-51.0); Hemoglobin 14.3 g/dL (11.5-16.0); IMMATURE GRAN ABSOLUTE AUTO 0.06 K/mm3 (0.00-0.10); IMMATURE GRAN PERCENT AUTO 1 % (0-1); LYMPHOCYTES ABSOLUTE AUTO 1.21 K/mm3 (0.84-5.20); LYMPHOCYTES PERCENT AUTO 20 % (21-46); MONOCYTES ABSOLUTE AUTO 0.29 K/mm3 (0.16-1.47); MONOCYTES PERCENT AUTO 5 % (4-13); Mean Corpuscular HGB 32.1 pg (26.0-34.0); Mean Corpuscular HGB Conc 32.8 g/dL (31.5-36.5); Mean Corpuscular Volume 98 fL (80-100); NEUTROPHILS ABSOLUTE AUTO 4.03 K/mm3 (1.96-9.15); NEUTROPHILS PERCENT AUTO 68 % (41-73); RDW Coefficient Variation 15.9 % (11.7-14.2); RDW Standard Deviation 58.7 fL (35.1-46.3); Red Blood Cell Count 4.45 M/mm3 (3.80-5.20); White Blood Cell Count 5.97 K/mm3 (4.00-11.30)
[2025-04-04 15:01] LABS: Albumin, Blood 3.9 g/dL (3.4-5.0); Albumin/Globulin Ratio 1.1 (0.8-1.8); Bilirubin, Total 0.8 mg/dL (0.1-1.0); Bun/Creatinine Ratio 47.8 (12.0-20.0); Calcium, Blood 9.7 mg/dL (8.5-10.1); Creatinine, Blood 0.52 mg/dL (0.40-1.00); Globulin, Blood 3.6 g/dL (2.2-4.0); Potassium, Blood 4.7 mmol/L (3.5-5.5); Total Protein, Blood 7.5 g/dL (6.4-8.2)
[2025-04-04 15:25] LABS: Platelet Count 168 K/mm3 (150-400)
[2025-04-04 15:27] LABS: Mean Platelet Volume 10.1 fL (9.1-12.4)
[2025-04-04 15:34] VITALS: BP 176/87
[2025-04-04] MEDS ORDERED: Ketorolac Tromethamine 30mg Vial IM ONE (18:25)
[2025-04-04] MEDS ORDERED: HYDACE10B PO (19:48)
[2025-04-04] MEDS ORDERED: FentaNYL Citrate 50 MCG/ML 2 ML Injection IV ONE (19:55)
== END 2025-04-04 20:22 | disposition home or self-care (01) ==
LOC: ER 13:00
PROVIDERS: Physician Assistant
DX: I73.9 Peripheral vascular disease, unspecified (principal); Z89.512 Acquired absence of left leg below knee; Z79.899 Other long term (current) drug therapy; Z88.0 Allergy status to penicillin; Z91.02 Food additives allergy status; E78.5 Hyperlipidemia, unspecified; Z90.49 Acquired absence of other specified parts of digestive tract; F17.210 Nicotine dependence, cigarettes, uncomplicated
CPT/HCPCS: 73630; 80053; 85025; 93926; 96372-59; 96374; 99284-25; A9270; J1885; J3010

== ENCOUNTER 2025-04-27 18:20 | Emergency (ER) | payer MEDICARE, OTHER ==
[~2025-04-27] VITALS: Ht 165.1 cm; Wt 67.6 kg
[2025-04-27] MEDS ORDERED: Ketorolac Tromethamine 15mg Vial IM ONE (20:40)
[2025-04-27] MEDS ORDERED: HYDROcodone 5-APAP 325 TAB PO ONE (20:40)
[2025-04-27 21:47] VITALS: BP 137/73
== END 2025-04-27 21:48 | disposition home or self-care (01) ==
LOC: ER 18:20
DX: M25.561 Pain in right knee (principal); M25.562 Pain in left knee; Z89.512 Acquired absence of left leg below knee; Z88.0 Allergy status to penicillin; Z79.899 Other long term (current) drug therapy
CPT/HCPCS: 73560-LT; 73590; 93971; 96372; 99284-25; A9270; J1885

== ENCOUNTER 2025-07-02 11:24 | Inpatient (IN) | payer MEDICARE, OTHER ==
[~2025-07-02] VITALS: Ht 167.6 cm; Wt 69.9 kg
[2025-07-02] VITALS (27 sets, daily range): BP systolic 65–163; BP diastolic 52–87
[2025-07-02 12:40] LABS: BASOPHILS ABSOLUTE AUTO 0.03 K/mm3 (0.00-0.23); BASOPHILS PERCENT AUTO 0 % (0-2); EOSINOPHILS ABSOLUTE AUTO 0.00 K/mm3 (0.00-0.68); EOSINOPHILS PERCENT AUTO 0 % (0-6); Hematocrit 38.9 % (33.0-51.0); Hemoglobin 13.1 g/dL (11.5-16.0); IMMATURE GRAN ABSOLUTE AUTO 0.08 K/mm3 (0.00-0.10); IMMATURE GRAN PERCENT AUTO 1 % (0-1); LYMPHOCYTES ABSOLUTE AUTO 0.54 K/mm3 (0.84-5.20); LYMPHOCYTES PERCENT AUTO 4 % (21-46); MONOCYTES ABSOLUTE AUTO 1.35 K/mm3 (0.16-1.47); MONOCYTES PERCENT AUTO 9 % (4-13); Mean Corpuscular HGB Conc 33.7 g/dL (31.5-36.5); Mean Corpuscular Volume 98 fL (80-100); NEUTROPHILS ABSOLUTE AUTO 13.17 K/mm3 (1.96-9.15); NEUTROPHILS PERCENT AUTO 87 % (41-73); NRBC ABSOLUTE 0.00 K/mm3 (0.00-0.02); NRBC Auto 0.0 /100 WBC (0.0-0.2); Platelet Count 185 K/mm3 (150-400); RDW Coefficient Variation 17.5 % (11.7-14.2); RDW Standard Deviation 63.1 fL (35.1-46.3)
[2025-07-02 13:05] LABS: Ethanol (Alcohol), Blood, Med <3 mg/dL; Salicylate 5.9 mg/dL (2.8-20.0); Thyroid Stimulating Hormone 0.160 uIU/mL (0.360-4.800)
[2025-07-02 13:11] LABS: Alanine Aminotransfer (ALT/SGP 144 U/L (12-78); Albumin, Blood 3.6 g/dL (3.4-5.0); Albumin/Globulin Ratio 0.8 (0.8-1.8); Anion Gap 15 mmol/L (3-11); Aspartate Aminotrans (AST/SGOT 84 U/L (12-37); Bilirubin, Total 2.5 mg/dL (0.1-1.0); Blood Urea Nitrogen 53 mg/dL (8-24); CO2, Blood 14 mmol/L (21-32); Calcium, Blood 10.6 mg/dL (8.5-10.1); Chloride, Blood 109 mmol/L (98-108); Creatinine, Blood 1.30 mg/dL (0.40-1.00); Globulin, Blood 4.3 g/dL (2.2-4.0); Glucose, Blood 187 mg/dL (70-99); Potassium, Blood 3.7 mmol/L (3.5-5.5); Sodium, Blood 134 mmol/L (136-145); Total Protein, Blood 7.9 g/dL (6.4-8.2)
[2025-07-02 13:12] LABS: Acetaminophen, Random <2.0 ug/mL (10.0-30.0)
[2025-07-02 13:41] LABS: Source, Urine Straight Cath
[2025-07-02] MEDS ORDERED: LevoFLOXacin 750 MG/D5W 150ML 150 ML IV ONE (13:55)
[2025-07-02 14:06] LABS: Bilirubin, Urine Neg (Neg); Color, Urine Yellow (P-Yellow); Glucose Qualitative, Urine Neg (Neg); Ketones, Urine 1+ (Neg); Leukocyte Esterase, Urine 2+ (Neg); Protein, Urine 3+ (Neg); Specific Gravity, Urine 1.015 (1.003-1.022); Urobilinogen, Urine 1+ (Normal)
[2025-07-02 14:14] LABS: White Blood Cells, Urine TNTC /hpf (0-5)
[2025-07-02 14:21] LABS: U Amphetamine Screen Not Detected; U Barbituate Screen Not Detected; U Benzodiazapine Screen Not Detected; U Cocaine Screen Not Detected; U Methadone Screen Not Detected; U Methamphetamine Screen Not Detected; U Opiates Screen DETECTED; U Phencyclidine Screen Not Detected
[2025-07-02 14:22] LABS: U Buprenorphine Screen Not Detected; U Cannabinoids Screen Not Detected; U Oxycodone Screen Not Detected
[2025-07-02] MEDS ORDERED: HYDROCODONE-AC1 EA19 PO (14:23)
[2025-07-02] MEDS ORDERED: NEURONTIN300 MG PO (14:24)
[2025-07-02 16:17] LABS: pH Blood Venous 7.33 (7.34-7.37)
[2025-07-02] MEDS ORDERED: Prochlorperazine Edisylate 10 mg Vial IV PRN (16:25)
[2025-07-02] MEDS ORDERED: FLU VACC TS2025(65UP)/MF59C/PF 45 MCG/0.5 ML SYRINGE IM SCH (16:35)
[2025-07-02] MEDS ORDERED: Acetylcysteine (Pharmacy Consult) IV SCH (17:00)
[2025-07-02] MEDS ORDERED: Vancomycin (Pharmacy Consult) IV SCH (17:00)
[2025-07-02] MEDS ORDERED: Ketorolac Tromethamine 30mg Vial IV ONE (17:30)
[2025-07-02] MEDS ORDERED: Ketorolac Tromethamine 30mg Vial ONE (17:40)
[2025-07-02] MEDS ORDERED: Ipratropium/Albuterol SulF 2.5-0.5MG/3 ML Amp ONE (17:50)
[2025-07-02 18:02] LABS: Salicylate 3.8 mg/dL (2.8-20.0)
[2025-07-02 18:04] LABS: Acetaminophen, Random <2.0 ug/mL (10.0-30.0)
[2025-07-02] MEDS ORDERED: FentaNYL Citrate 50 MCG/ML 2 ML Injection ONE (19:23)
--- NOTE | 2025-07-02 19:27 | NUR ---
ASSUMPTION OF CARE PT ARRIVED TO ICU VIA BED ON BIPAP AT 1839. PT UNABLE TO RESPOND TO QUESTIONS OR FOLLOW DIRECTIONS. PT RR'S IN 40'S AND HR 150'S ON MONITOR, BLOOD PRESSURE 60'S/40'S W/ MAPS IN 40'S. ANA CALLED AND ADVISED FOR STAT LABS AND PHENYLEPHERINE GTT TO BE STARTED. TEMP SENSING LEMUS PLACED FOR CORE TEMP, 103F. STAGE 2 PRESSURE ULCER NOTED ON COCCYX, SECOND RN SKIN CHECK DONE W/ KARAN De Leon RN. REPORT GIVEN TO IFTIKHAR RN AT BEDSIDE.
[2025-07-02 19:33] LABS: Anion Gap 19.0 mmol/L (3-11); Blood Urea Nitrogen 49.0 mg/dL (8-24); CO2, Blood 13.0 mmol/L (21-32); Calcium, Blood 9.5 mg/dL (8.5-10.1); Chloride, Blood 109.0 mmol/L (98-108); Creatinine, Blood 1.12 mg/dL (0.40-1.00); Glucose, Blood 187.0 mg/dL (70-99); Potassium, Blood 2.7 mmol/L (3.5-5.5); Sodium, Blood 138.0 mmol/L (136-145)
[2025-07-02] MEDS ORDERED: FentaNYL Citrate 50 MCG/ML 2 ML Injection IV ONE (19:35)
[2025-07-02] MEDS ORDERED: Magnesium Sulf 2 GM/Water 50ML 50 ML IV ONE (20:10)
[2025-07-02 20:20] LABS: pH Blood Venous 7.19 (7.34-7.37)
[2025-07-02] MEDS ORDERED: Phenylephrine HCl 100 MCG/ML-NS 10MLSYR (1MG/10ML) IV ONE (20:27)
[2025-07-02] MEDS ORDERED: Rocuronium Bromide 10 MG/ML 5ML Injection IV ONE (20:27)
[2025-07-02] MEDS ORDERED: Etomidate 2MG / ML 10ML Vial IV ONE (20:27)
[2025-07-02] MEDS ORDERED: Heparin Sodium,Porcine 5,000 UNIT/0.5 ML SDV SC SCH (21:00)
[2025-07-02] MEDS ORDERED: FentaNYL Citrate 50 MCG/ML 2 ML Injection IV PRN (23:20)
--- NOTE | 2025-07-02 23:25 | NUR ---
ASSUMED CARE AT APPROX 1900 PATIENT ON BIPAP WHILE DOING BEDSIDE REPORT, RESPIRATIONS 30s-40s BUT SHALLOW. PATIENT OPENING EYES BUT NO PURPOSEFUL MOVEMENTS OR EYE CONTACT. DAYSHIFT RN PLACED TEMP LEMUS, TEMP READING 103. PHENYLEPHRINE INFUSING TO MAINTAIN MAP >65. HR ST 140s. 1916- PATIENT BECAME APNEIC ON BIPAP, RESPIRATORY CODE CALLED DR. PEREZ INTUBATED PATIENT. SEE CODE SHEET FOR SPECIFIC TIMES AND MEDICATION. PATIENT SWITCHED TO LEVOPHED, PROPOFOL STARTED. MAG AND POTASSIUM ORDERED PER DR. PEREZ. PATIENT NOW ON VENT AC VC 16/450/5/30% RR 23, PATIENT OPENING EYES AND COUGHING, NOT FOLLOWING COMMANDS AT THIS TIME, PROPOFOL TITRATED UP FOR COMFORT. HR SR 95, LEVOPHED INFUSING TO MAINTAIN BP >65. TEMP LEMUS DRAINING VERY CLOUDY/SEDIMENT URINE. TEMP NOW 97.5. OG TO LIS.
[2025-07-03] VITALS (90 sets, daily range): BP systolic 75–132; BP diastolic 48–83
[2025-07-03] MEDS ORDERED: Hydrogen Peroxide 1.5 % Solution MT SCH
[2025-07-03 01:24] LABS: Prothrombin Time Results 13.4 Sec (9.7-11.5)
[2025-07-03 02:45] LABS: Alanine Aminotransfer (ALT/SGP 92.0 U/L (12-78); Albumin, Blood 2.1 g/dL (3.4-5.0); Albumin/Globulin Ratio 0.7 (0.8-1.8); Aspartate Aminotrans (AST/SGOT 101.0 U/L (12-37); Bilirubin, Direct 1.2 mg/dL (0.0-0.3); Bilirubin, Indirect 0.6 mg/dL (0.1-0.7); Bilirubin, Total 1.8 mg/dL (0.1-1.0); Globulin, Blood 3.0 g/dL (2.2-4.0)
[2025-07-03 02:46] LABS: Total Protein, Blood 5.1 g/dL (6.4-8.2)
[2025-07-03 03:44] LABS: Hematocrit 32.1 % (33.0-51.0); Hemoglobin 11.0 g/dL (11.5-16.0); Mean Corpuscular HGB Conc 34.3 g/dL (31.5-36.5); Mean Corpuscular Volume 96 fL (80-100); NRBC ABSOLUTE 0.00 K/mm3 (0.00-0.02); NRBC Auto 0.0 /100 WBC (0.0-0.2); Platelet Count 118 K/mm3 (150-400); RDW Coefficient Variation 17.3 % (11.7-14.2); RDW Standard Deviation 60.4 fL (35.1-46.3)
[2025-07-03 04:30] LABS: Alanine Aminotransfer (ALT/SGP 92 U/L (12-78); Albumin, Blood 2.0 g/dL (3.4-5.0); Albumin/Globulin Ratio 0.6 (0.8-1.8); Anion Gap 14 mmol/L (3-11); Aspartate Aminotrans (AST/SGOT 97 U/L (12-37); Bilirubin, Direct 1.0 mg/dL (0.0-0.3); Bilirubin, Indirect 0.6 mg/dL (0.1-0.7); Bilirubin, Total 1.6 mg/dL (0.1-1.0); Blood Urea Nitrogen 52 mg/dL (8-24); CO2, Blood 17 mmol/L (21-32); Calcium, Blood 8.7 mg/dL (8.5-10.1); Chloride, Blood 108 mmol/L (98-108); Creatinine, Blood 1.26 mg/dL (0.40-1.00); Globulin, Blood 3.1 g/dL (2.2-4.0); Glucose, Blood 176 mg/dL (70-99); Potassium, Blood 3.5 mmol/L (3.5-5.5); Sodium, Blood 135 mmol/L (136-145); Total Protein, Blood 5.1 g/dL (6.4-8.2); Vancomycin, Random 17.1 ug/mL
[2025-07-03 05:11] LABS: BAND PERCENT MAN 27 % (0-8); BASOPHILS ABSOLUTE MAN 0.00 K/mm3 (0.00-0.23); BASOPHILS PERCENT MAN 0 % (0-2); EOSINOPHILS ABSOLUTE MAN 0.15 K/mm3 (0.00-0.68); EOSINOPHILS PERCENT MAN 1 % (0-6); LYMPHOCYTES ABSOLUTE MAN 0.75 K/mm3 (0.84-5.20); LYMPHOCYTES PERCENT MAN 5 % (21-46); METAMYELOCYTE ABSOLUTE MAN 0.15 K/mm3 (0.00-0.00); METAMYELOCYTE PERCENT MAN 1 % (0-0); MONOCYTES ABSOLUTE MAN 0.45 K/mm3 (0.16-1.47); MONOCYTES PERCENT MAN 3 % (4-13); NEUTROPHILS ABSOLUTE MAN 13.67 K/mm3 (1.96-9.15); SEG NEUTROPHILS PERCENT MAN 63 % (41-73)
--- NOTE | 2025-07-03 06:13 | NUR ---
SHIFT SUMMARY PATIENT REMAINS INTUBATED AND SEDATED ON PROPOFOL. PATIENT BECOMING MORE ALERT AND AGITATED THROUGH THE NIGHT, SEDATION TITRATED UP AND FENTANYL PRN. SP02 99% ON VENT AC VC 16/450/5/30%. HR ST 105. LEVOPHED REMAINS INFUSING. LEMUS PATENT AND DRAINING TO GRAVITY. OG TO LIS. SEVERAL BMs THIS SHIFT. REPOSITIONED Q2 HOURS. DAUGHTER WAS UPDATED ON PATIENT CONDITION LAST NIGHT. POISON CONTROL FOLLOWING
[2025-07-03] MEDS ORDERED: Cetylpyridinium Chloride 1 EA MISC MT SCH (08:00)
[2025-07-03 12:32] LABS: Prothrombin Time Results 13.0 Sec (9.7-11.5)
[2025-07-03 13:28] LABS: Alanine Aminotransfer (ALT/SGP 76.0 U/L (12-78); Albumin, Blood 1.9 g/dL (3.4-5.0); Albumin/Globulin Ratio 0.6 (0.8-1.8); Aspartate Aminotrans (AST/SGOT 88.0 U/L (12-37); Bilirubin, Direct 0.8 mg/dL (0.0-0.3); Bilirubin, Indirect 0.4 mg/dL (0.1-0.7); Bilirubin, Total 1.2 mg/dL (0.1-1.0); Globulin, Blood 3.0 g/dL (2.2-4.0); Total Protein, Blood 4.9 g/dL (6.4-8.2)
--- NOTE | 2025-07-03 19:03 | NUR ---
Patient remains on ICU with ongoing treatments for DKA, UTI, LAURYN and PNA. See MD notes for workup. Patient's supplemental oxygen now at HFNC 30L 30% fio2, requiring insulin infusion per DKA protocol, and per Dr Moss, will continue D5 LR with potassium for fluids until gap closes. Reviewed 16:[address] Ajay MD compared labs with 09:00 values. With minimal changes will continueinsulin and maintenance fluid as ordered. Next chemistry panel schduled for 05:00 as MD believes there is a low likelihood that gap will close before then.
--- NOTE | 2025-07-03 19:28 | NUR ---
Patient continues treatment in the ICU for apparent overdose, and treament for gram negative rods found in urine and blood. Sedation interuption performed between 09:00 and 09:15 with patient agitation/reaching for ETT prompted the restarting of the propofol infusion. Right pupil found to be larger than left pupil, Dr Moss aware, due to patient moving all four extremities and tracking staff MD opted to forego further neuro workup at this time. Spoke with Phil from Poison Control, reviewed afternoon AST and ALT levels (see lab results) at 17:30. Since AST & ALT is trending down, Phil instructed to stop acetylcysteine infusion when current bag is complete. Levopheod was titrate throughout the shift to MAP goals >65 with a high of 6mcg/min and a low of 2mcg/min which remained at 2mcg/min throughout the end of dayshift. See Critical Care Flowsheet for titrations values of levopheod.
[2025-07-04] VITALS (40 sets, daily range): BP systolic 101–157; BP diastolic 55–121
[2025-07-04 00:41] LABS: Alanine Aminotransfer (ALT/SGP 66.0 U/L (12-78); Albumin, Blood 2.0 g/dL (3.4-5.0); Albumin/Globulin Ratio 0.7 (0.8-1.8); Aspartate Aminotrans (AST/SGOT 75.0 U/L (12-37); Bilirubin, Direct 0.6 mg/dL (0.0-0.3); Bilirubin, Indirect 0.3 mg/dL (0.1-0.7); Bilirubin, Total 0.9 mg/dL (0.1-1.0); Globulin, Blood 3.0 g/dL (2.2-4.0); Total Protein, Blood 5.0 g/dL (6.4-8.2)
[2025-07-04 00:42] LABS: Prothrombin Time Results 11.6 Sec (9.7-11.5)
[2025-07-04 03:49] LABS: BASOPHILS ABSOLUTE AUTO 0.01 K/mm3 (0.00-0.23); BASOPHILS PERCENT AUTO 0 % (0-2); EOSINOPHILS ABSOLUTE AUTO 0.36 K/mm3 (0.00-0.68); EOSINOPHILS PERCENT AUTO 4 % (0-6); Hematocrit 27.3 % (33.0-51.0); Hemoglobin 9.7 g/dL (11.5-16.0); IMMATURE GRAN ABSOLUTE AUTO 0.13 K/mm3 (0.00-0.10); IMMATURE GRAN PERCENT AUTO 1 % (0-1); LYMPHOCYTES ABSOLUTE AUTO 0.71 K/mm3 (0.84-5.20); LYMPHOCYTES PERCENT AUTO 7 % (21-46); MONOCYTES ABSOLUTE AUTO 0.64 K/mm3 (0.16-1.47); MONOCYTES PERCENT AUTO 6 % (4-13); Mean Corpuscular HGB Conc 35.5 g/dL (31.5-36.5); Mean Corpuscular Volume 95 fL (80-100); NEUTROPHILS ABSOLUTE AUTO 8.10 K/mm3 (1.96-9.15); NEUTROPHILS PERCENT AUTO 82 % (41-73); NRBC ABSOLUTE 0.00 K/mm3 (0.00-0.02); NRBC Auto 0.0 /100 WBC (0.0-0.2); Platelet Count 91 K/mm3 (150-400); RDW Coefficient Variation 17.5 % (11.7-14.2); RDW Standard Deviation 60.9 fL (35.1-46.3)
[2025-07-04 04:21] LABS: Alanine Aminotransfer (ALT/SGP 66 U/L (12-78); Albumin, Blood 2.1 g/dL (3.4-5.0); Albumin/Globulin Ratio 0.7 (0.8-1.8); Anion Gap 14 mmol/L (3-11); Aspartate Aminotrans (AST/SGOT 77 U/L (12-37); Bilirubin, Total 1.0 mg/dL (0.1-1.0); Blood Urea Nitrogen 53 mg/dL (8-24); CO2, Blood 16 mmol/L (21-32); Calcium, Blood 8.5 mg/dL (8.5-10.1); Chloride, Blood 109 mmol/L (98-108); Creatinine, Blood 1.53 mg/dL (0.40-1.00); Globulin, Blood 3.0 g/dL (2.2-4.0); Glucose, Blood 111 mg/dL (70-99); Magnesium, Blood 1.8 mg/dL (1.6-2.4); Potassium, Blood 3.1 mmol/L (3.5-5.5); Sodium, Blood 136 mmol/L (136-145); Total Protein, Blood 5.1 g/dL (6.4-8.2)
[2025-07-04] MEDS ORDERED: Mag Sulfate 1 GM/D5% 100ML 100 ML IV ONE (05:05)
[2025-07-04] MEDS ORDERED: Albumin (Human) 25gm/100ml 100 ML IV ONE (05:05)
[2025-07-04] MEDS ORDERED: Potassium Chl 20MEQ/Water100ML 100 ML IV ONE (05:05)
[2025-07-04] MEDS ORDERED: Sodium Bicarb 8.4% 1 MEQ/ML 50 ML Vial IV ONE (05:05)
--- NOTE | 2025-07-04 09:09 | NUR ---
ASSUMED CARE OF PATIENT AT APPROXIMATELY 0700. BEDSIDE REPORT RECEIVED FROM QUINCY PFEIFFER. PT INTUBATED AND SEDATED, ROUSES TO VERBAL STIMULI. FOLLOWING COMMANDS, PROPOFOL INFUSING AT 45 MCG/KG/HR. CONTINUOUS CARDIAC MONITORING IN PLACE. VENT SETTINGS SPONTANEOUS 10/5 AND 30%. LEMUS PATENT AND DRAINING TO GRAVITY. SEE SHIFT ASSESSMENT FOR FULL DETAILS.
--- NOTE | 2025-07-04 10:53 | NUR ---
Spiritual Care Visit. Pt. is intubated but is displays evidence of being alert and responsive. Pts. Aunt is at bedside. Though Pt. is verbally constrained, communication is made with nods. Pt. acknowledged that she is a woman of [place] and welcomed prayer. Prayed with the Pt. Will remain available to the Pt.
--- NOTE | 2025-07-04 11:49 | NUR ---
COUSIN DEISY - RIDE HOME PT'S COUSIN DEISY STATES THAT WHEN PT IS READY TO BE RELEASED SHE WILL BE PT'S RIDE HOME. CONTACT # IS [phone] AND IF SHE DOESN'T ANSWER ON THAT NUMBER SHE CAN BE REACHED AT [phone] WHICH IS HER FATHER IWONA'S PHONE.
[2025-07-04 12:20] LABS: Prothrombin Time Results 11.1 Sec (9.7-11.5)
[2025-07-04 12:23] LABS: Alanine Aminotransfer (ALT/SGP 58.0 U/L (12-78); Albumin, Blood 2.6 g/dL (3.4-5.0); Albumin/Globulin Ratio 0.9 (0.8-1.8); Aspartate Aminotrans (AST/SGOT 67.0 U/L (12-37); Bilirubin, Direct 0.8 mg/dL (0.0-0.3); Bilirubin, Indirect 0.3 mg/dL (0.1-0.7); Bilirubin, Total 1.1 mg/dL (0.1-1.0); Globulin, Blood 2.9 g/dL (2.2-4.0); Total Protein, Blood 5.5 g/dL (6.4-8.2)
--- NOTE | 2025-07-04 17:10 | NUR ---
SHIFT SUMMARY PT REMAINED ALERT AND ORIENTED X 4 T/O REMAINDER OF SHIFT S/P EXTUBATION. ABLE TO FOLLOW COMMANDS, MAKE PURPOSEFUL MOVEMENTS, AND MAKE NEEDS KNOWN. TMAX OF 101.9. COLD THERAPY, FANS, AND VA TYLENOL UTILIZED. CONTINUOUS CARDIAC MONITORING IN PLACE SHOWS S TACH, BP STABLE. ON RA c O2 SATURATIONS > 92%. 2 LARGE BM's THIS SHIFT. LEMUS PATENT AND DRAINING TO GRAVITY. UCX REVIEWED c DR. PEREZ. MEPILEX TO COCCYX CHANGED. DAUGHTER VAN UPDATED ON POC VIA PHONE CALL. WILL CONTINUE TO MONITOR AND REPORT TO ONCOMING RN.
--- NOTE | 2025-07-04 20:00 | NUR ---
ASSUMPTION OF CARE: ASSUMED CARE AT START OF SHIFT (1899). REPORT RECEIVED FROM DAY SHIFT RN. PT IS DOING WELL AND RESTING IN BED. PT IS ALERT AND ABLE TO FOLLOW COMMANDS. LUNG SOUNDS ARE EQUAL, ON RA WITH SPO2 >94%. SBP: 120'S MAP >65 HR: 100'S. IV: PERIPHERAL IN R FOREARM, CENTERAL LINE R SUBCLAVIAN. LEMUS CATHETER IN PLACE AND DRAINING TO GRAVITY. LINES AND CORDS PLACED OUT OF REACH. WILL CONTINUE TO MONOTIOR.
[2025-07-05] VITALS (11 sets, daily range): BP systolic 120–152; BP diastolic 57–88
[2025-07-05 00:37] LABS: BASOPHILS ABSOLUTE AUTO 0.02 K/mm3 (0.00-0.23); BASOPHILS PERCENT AUTO 0 % (0-2); EOSINOPHILS ABSOLUTE AUTO 0.13 K/mm3 (0.00-0.68); EOSINOPHILS PERCENT AUTO 2 % (0-6); Hematocrit 27.1 % (33.0-51.0); Hemoglobin 9.3 g/dL (11.5-16.0); IMMATURE GRAN ABSOLUTE AUTO 0.14 K/mm3 (0.00-0.10); IMMATURE GRAN PERCENT AUTO 2 % (0-1); LYMPHOCYTES ABSOLUTE AUTO 0.69 K/mm3 (0.84-5.20); LYMPHOCYTES PERCENT AUTO 10 % (21-46); MONOCYTES ABSOLUTE AUTO 0.43 K/mm3 (0.16-1.47); MONOCYTES PERCENT AUTO 7 % (4-13); Mean Corpuscular HGB Conc 34.3 g/dL (31.5-36.5); Mean Corpuscular Volume 95 fL (80-100); NEUTROPHILS ABSOLUTE AUTO 5.20 K/mm3 (1.96-9.15); NEUTROPHILS PERCENT AUTO 79 % (41-73); NRBC ABSOLUTE 0.00 K/mm3 (0.00-0.02); NRBC Auto 0.0 /100 WBC (0.0-0.2); Platelet Count 90 K/mm3 (150-400); RDW Coefficient Variation 17.3 % (11.7-14.2); RDW Standard Deviation 61.2 fL (35.1-46.3)
[2025-07-05 00:56] LABS: Alanine Aminotransfer (ALT/SGP 52.0 U/L (12-78); Albumin, Blood 2.6 g/dL (3.4-5.0); Albumin/Globulin Ratio 0.9 (0.8-1.8); Anion Gap 10.0 mmol/L (3-11); Aspartate Aminotrans (AST/SGOT 62.0 U/L (12-37); Bilirubin, Total 0.9 mg/dL (0.1-1.0); Blood Urea Nitrogen 44.0 mg/dL (8-24); CO2, Blood 22.0 mmol/L (21-32); Calcium, Blood 8.7 mg/dL (8.5-10.1); Chloride, Blood 111.0 mmol/L (98-108); Creatinine, Blood 1.3 mg/dL (0.40-1.00); Globulin, Blood 2.9 g/dL (2.2-4.0); Glucose, Blood 83.0 mg/dL (70-99); Potassium, Blood 2.9 mmol/L (3.5-5.5); Sodium, Blood 140.0 mmol/L (136-145); Total Protein, Blood 5.5 g/dL (6.4-8.2)
--- NOTE | 2025-07-05 05:52 | NUR ---
SHIFT SUMMARY: PT IS DOING WELL AND RESTING IN BED. NO ACUTE CHANGES THROUGHOUT THE SHIFT. PT WAS ABLE TO SLEEP PART OF THE NIGHT. LAB: K+ WAS LOW AND PT IS GETTING KCL PER EMR ORDERS. VITAL SIGNS REMAIN STABLE. LEMUS CATHER IS IN PLACE AND DRAINING TO GRAVITY. LINES, CORDS, AND TUBES PLACED OUT OF REACH.
--- NOTE | 2025-07-05 07:36 | NUR ---
ASSUMED CARE OF PATIENT AT APPROXIMATELY 0700. REPORT RECEIVED FROM QUINCY MANNING. PT ASLEEP AT TIME OF BEDSIDE REPORT. CONTINUOUS CARDIAC MONITORING IN PLACE. BP STABLE. ON RA c O2 SATURATION > 92%. LEMUS PATENT AND DRAINING TO GRAVITY. KcL INFUSING. SEE SHIFT ASSESSMENT FOR FULL DETAILS.
--- NOTE | 2025-07-05 11:55 | NUR ---
Spiritual Care Visit. Pt. is awake and sitting up in a chair and is no longer under 1:1 supervision. Pt. cautiously welcomed my visit, and displayed evidence of being more guarded than on this sales professional's previous visit. Pt. was limited with her dialogue, but verbalized gratitude for the spiritual care visit.
[2025-07-05] MEDS ORDERED: LevoFLOXacin 750 MG/D5W 150ML 150 ML IV SCH (18:00)
--- NOTE | 2025-07-05 18:32 | NUR ---
SHIFT SUMMARY PT REMAINED ALERT AND ORIENTED X 4 T/O ENTIRETY OF SHIFT. ABLE TO FOLLOW COMMANDS, MAKE PURPOSEFUL MOVEMENTS, AND MAKE NEEDS KNOWN. TMAX 101.4. MEDICATED c PO TYLENOL. PT REPORTED EPISODES OF PAIN IN VARIOUS SPOTS ON HER BODY. MEDICATED PER EMAR c GOOD BENEFIT. UP TO CHAIR THIS SHIFT WITH 2 PERSON ASSIST, HOWEVER BACK TO BED REQUIRED LIFT D/T WEAKNESS. CONTINUOUS CARDIAC MONITORING IN PLACE SHOWS SR-STACH. BP STABLE. ON RA c O2 SATURATIONS > 92%. RECTAL TUBE PLACED THIS SHIFT FOR LIQUID STOOLS AND TO HELP MAINTAIN SKIN INTEGRITY. TEMP LEMUS REMAINS PATENT AND DRAINING TO GRAVITY. DAUGHTER UPDATED ON POC VIA PHONE CALL. WILL CONTINUE TO MONITOR AND REPORT TO ONCOMING RN.
[2025-07-06] VITALS: BP 154/76
[2025-07-06 04:00] VITALS: BP 143/91
[2025-07-06 04:45] LABS: Hematocrit 27.4 % (33.0-51.0); Hemoglobin 9.2 g/dL (11.5-16.0); Mean Corpuscular HGB Conc 33.6 g/dL (31.5-36.5); Mean Corpuscular Volume 96 fL (80-100); NRBC ABSOLUTE 0.00 K/mm3 (0.00-0.02); NRBC Auto 0.0 /100 WBC (0.0-0.2); Platelet Count 89 K/mm3 (150-400); RDW Coefficient Variation 17.3 % (11.7-14.2); RDW Standard Deviation 61.1 fL (35.1-46.3)
[2025-07-06 05:08] LABS: Anion Gap 11.0 mmol/L (3-11); Blood Urea Nitrogen 31.0 mg/dL (8-24); CO2, Blood 21.0 mmol/L (21-32); Calcium, Blood 8.6 mg/dL (8.5-10.1); Chloride, Blood 107.0 mmol/L (98-108); Creatinine, Blood 1.05 mg/dL (0.40-1.00); Glucose, Blood 71.0 mg/dL (70-99); Potassium, Blood 3.0 mmol/L (3.5-5.5); Sodium, Blood 136.0 mmol/L (136-145)
[2025-07-06 05:17] LABS: BAND PERCENT MAN 3 % (0-8); BASOPHILS ABSOLUTE MAN 0.13 K/mm3 (0.00-0.23); BASOPHILS PERCENT MAN 2 % (0-2); EOSINOPHILS ABSOLUTE MAN 0.32 K/mm3 (0.00-0.68); EOSINOPHILS PERCENT MAN 5 % (0-6); LYMPHOCYTES ABSOLUTE MAN 0.45 K/mm3 (0.84-5.20); LYMPHOCYTES PERCENT MAN 7 % (21-46); MONOCYTES ABSOLUTE MAN 0.58 K/mm3 (0.16-1.47); MONOCYTES PERCENT MAN 9 % (4-13); MYELOCYTE ABSOLUTE MAN 0.13 K/mm3 (0.00-0.00); MYELOCYTE PERCENT MAN 2 % (0-0); NEUTROPHILS ABSOLUTE MAN 4.91 K/mm3 (1.96-9.15); SEG NEUTROPHILS PERCENT MAN 72 % (41-73)
[2025-07-06 08:36] VITALS: BP 144/71
[2025-07-06 12:00] VITALS: BP 137/67
[2025-07-06 16:00] VITALS: BP 139/69
[2025-07-06] MEDS ORDERED: LevoFLOXacin 750 MG/D5W 150ML 150 ML IV SCH (18:00)
--- NOTE | 2025-07-06 19:20 | NUR ---
DAY SHIFT SUMMARY CHIRAG IS ORIENTED X3-4, UNSURE OF DATE/TIME. SPOKE WITH PROVIDER DR. HARPER REGARDING PAIN CONTROL AND CHRONIC NEUROPATHY PAIN. ORDERS FOR 5-10MG OXY, D/C TYLENOL DUE TO CONCERN FOR LFT'S WORSENING IN SETTING OF OD ON NORCO/AMBIEN. PER NOTES PSYCH SIGNED OFF ON PATIENT - DISCUSSED THIS WITH PROVIDER WELL HEMP FIBER TAKER OFF AND AWAITING PT EVAL FOR POSSIBLE SNF WHICH PT IS AGREEABLE TO. DENIES ANY INTENT TO HARM SELF BUT REPORTS FEELING "HOPELESS" DUE TO PAIN. ATTEMPTED ALL PAIN CONTROL OPTIONS PATIENT ALLOWED. PT REPORTS LOWEST PAIN /. REFUSED Q2 TURNS AT TIMES. SUBCLAVIAN LINE REMOVED PER BIGG HEMP FIBER TAKER OFF. NO HEMATOMA OR PAIN/BLEEDING. OCCLUSIVE DRESSING APPLIED WITH PRESSURE FOR 10 MINUTES. LEMUS CATHETER REMOVED PER PROVIDER ORDER. BLADDER SCAN 340 AT 1800. PASSED ON TO NOC RN. PER DR. HARPER, PLAN FOR COGNITIVE EVAL BY OT TOMORROW.
[2025-07-06 20:00] VITALS: BP 156/80
[2025-07-07 01:34] VITALS: BP 160/83
--- NOTE | 2025-07-07 03:55 | NUR ---
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 DR WALLACE NOTIFIED AND ONE TIME 600 MG PO GABAPENTIN ORDERED. SHE WANTS RN TO UPDATE DAY RN WITH TEAM TO POSSIBLY REINSTATE PT HOME GABAPENTIN ORDER TODAY PT NOT VENTED AND TAKING PO NOW AND IS ON PCU
[2025-07-07 04:13] VITALS: BP 140/88
--- NOTE | 2025-07-07 05:21 | NUR ---
END OF SHIFT REPORT PT ADMITTED TO ROOM FROM ICU AT 0115. PT PLACED ON NEW LINENS, GOWN AND REPOSITIONED. PLAN OF CARE DISCUSSED, VS TAKEN AND PT STATES UNDERSTANDING. AT 0330, PAIN 10/10 R LEG AND PHANTOM PAIN TO LLE BKA. PRN FENTANYL 50 MCG GIVEN. MD CALLED PT REQ GABAPENTIN FOR LEG PAIN THAT WAS STILL UNRELIEVED AFTER FENTANYL. ONE TIME 600 MG GABAPENTIN ORDERED PT HOME DOSE AND MD WANTS DAY TEAM TO RESUME MEDICATION IF THEY WANT IT TODAY. PT ASLO GIVEN OXYCODONE 10 MG AT 0500 FOR CONTINUED PAIN. PT SIPPED SOME WATER AND ENCOURAGED TO INCREASE POINTAKE. NO URINE SINCE PT ADMITTED BUT HAD WET GOWN AND CHUCKS ON ADMISSION TO UNIT.
[2025-07-07 07:51] VITALS: BP 154/95
[2025-07-07 15:37] VITALS: BP 136/80
--- NOTE | 2025-07-07 15:52 | NUR ---
ASSUMPTION OF CARE ASSUMED CARE OF PATIENT AT 0700 AFTER BEDSIDE SHIFT REPORT. HR SINUS TACHY IN LOW 100'S. O2 SAT >94% ON ROOM AIR. VITALS STABLE. PATIENT RESTING IN BED IN LOWEST POSITION. CALL LIGHT WITH IN REACH.
--- NOTE | 2025-07-07 16:31 | NUR ---
SHIFT SUMMARY PATIENT HAS BEEN SINUS TACHY T/O SHIFT IN THE LOW 100'S. SHE IS A&O X 3. VITALS HAVE BEEN STABLE. 02 SATS >94% ON ROOM AIR. BLADDER SCAN SHOWED URINE RETENTION AND STRAIGHT CATHETER PLACED, 1050 ML DRAINED. L PIV IN AC FLUSHES. RECTAL TUBE D/C PER PROVIDER AND REMOVED. PATIENT COMPLAINS OF PAIN IN BLE, MEDICATED PER EMAR.
[2025-07-07] MEDS ORDERED: NS 250 ML IV PRN (18:00)
--- NOTE | 2025-07-07 18:14 | NUR ---
pt arrived to 361 via bed from pcu, report from Guido, she is complaining of pain, oxycodone was given, states it helped a bit, no further changes this shift, call light in reach.
[2025-07-07 19:21] VITALS: BP 93/71
[2025-07-08 03:00] VITALS: BP 122/84
--- NOTE | 2025-07-08 04:18 | NUR ---
SHIFT SUMMARY NO ACUTE CHANGES THIS SHIFT, VSS, C/O PAIN TO BLE- CALLING REQ PAIN MEDS EVEN AFTER SHE HAS RECEIVED THEM, MEDICATED PER DEC, STRAIGHT CATHED X1 THIS SHIFT 550MLS, PT REPORTED FEELING HER BLADDER WAS FULL BUT UNABLE TO VOID, SLEPT INTERMITTENTLY T/O SHIFT, BEDRESTING W/CALL LIGHT IN REACH, WILL CONT TO MONITOR.
[2025-07-08 05:11] LABS: Hematocrit 30.4 % (33.0-51.0); Hemoglobin 10.2 g/dL (11.5-16.0); Mean Corpuscular HGB Conc 33.6 g/dL (31.5-36.5); Mean Corpuscular Volume 97 fL (80-100); NRBC ABSOLUTE 0.00 K/mm3 (0.00-0.02); NRBC Auto 0.0 /100 WBC (0.0-0.2); Platelet Count 109 K/mm3 (150-400); RDW Coefficient Variation 17.0 % (11.7-14.2); RDW Standard Deviation 60.5 fL (35.1-46.3)
[2025-07-08 05:46] LABS: Anion Gap 8.0 mmol/L (3-11); Blood Urea Nitrogen 27.0 mg/dL (8-24); CO2, Blood 24.0 mmol/L (21-32); Calcium, Blood 8.6 mg/dL (8.5-10.1); Chloride, Blood 108.0 mmol/L (98-108); Creatinine, Blood 1.02 mg/dL (0.40-1.00); Glucose, Blood 101.0 mg/dL (70-99); Potassium, Blood 3.7 mmol/L (3.5-5.5); Sodium, Blood 136.0 mmol/L (136-145)
[2025-07-08 05:49] LABS: BAND PERCENT MAN 2 % (0-8); BASOPHILS ABSOLUTE MAN 0.00 K/mm3 (0.00-0.23); BASOPHILS PERCENT MAN 0 % (0-2); EOSINOPHILS ABSOLUTE MAN 0.24 K/mm3 (0.00-0.68); EOSINOPHILS PERCENT MAN 3 % (0-6); LYMPHOCYTES ABSOLUTE MAN 0.99 K/mm3 (0.84-5.20); LYMPHOCYTES PERCENT MAN 12 % (21-46); METAMYELOCYTE ABSOLUTE MAN 0.41 K/mm3 (0.00-0.00); METAMYELOCYTE PERCENT MAN 5 % (0-0); MONOCYTES ABSOLUTE MAN 1.07 K/mm3 (0.16-1.47); MONOCYTES PERCENT MAN 13 % (4-13); NEUTROPHILS ABSOLUTE MAN 5.53 K/mm3 (1.96-9.15); SEG NEUTROPHILS PERCENT MAN 65 % (41-73)
[2025-07-08 07:35] VITALS: BP 118/68
--- NOTE | 2025-07-08 08:55 | NUR ---
NOTE PT HAS HX OF L BKA. PT REPORTS PAIN, PT REFUSED AMBULATION TO BSC WHEN "REPORTING HAVING TO VOID." REPORTED TO RAG WASHER WANTING TO USE PERWICK. THIS RN ENCOURAGED STAND PIVOT WITH ASSISTANCE. PT REPORTED "DONT HAVE GOOD FEELING IN LEG TO STAND." OT ATTEMPTED TO WORK WITH PT THIS AM. OT REPORTED "AGITATED AND ALMOST COMBATIVE BEHAVIOR." PT REF OT THERAPY.
--- NOTE | 2025-07-08 11:22 | NUR ---
NOTE REPORTED TO DR. OLIVEIRA PT HAD STRAIGHT CATH X2. PT HASNT VOIDED SINCE LAST STRAIGHT CATH WHICH NIGHT RN REPORTED DOING AROUND 0100. DR. OLIVEIRA REPORTED IF PT HAS MORE THAN 400ML IN BLADDER TO STRAIGHT CATH AGAIN. DR. OLIVEIRA REPORTED WORKING ON PT DISCHARGE, TO MAKE SURE PT WORKS WITH OT. REPORTED PT REFUSED THIS AM. WHILE IN ROOM PT REPORTED BEING AGREEABLE TO WORKE WITH OT. THIS RN CALLED OT TO NOTIFY, OT REPORTED WILL COME BACK AROUND LATER TO WORK WITH PT.
[2025-07-08] MEDS ORDERED: HYDROcodone 10-APAP 325 TAB PO PRN (12:20)
[2025-07-08] MEDS ORDERED: Ketorolac Tromethamine 15mg Vial IV PRN (12:30)
--- NOTE | 2025-07-08 12:44 | NUR ---
NOTE BREAK RN STRAIGHT CATH PT. PT HAD 700ML OUTPUT OF URINE. REPORTED TO DR. OLIVEIRA. DR. OLIVEIRA ORDERED Q6 STRAIGHT CATH IF OVER 400ML.
[2025-07-08 15:28] VITALS: BP 110/73
[2025-07-08 19:33] VITALS: BP 147/71
--- NOTE | 2025-07-08 19:49 | NUR ---
SHIFT SUMMARY PT A&OX3. HX OF DEMENTIA. PT CONFUSED AT TIMES. PT ADMITTED DUE TO SEVERE SEPSIS. PT HAS L BKA. PT REPORTS BLE PAIN, PAIN MANAGED PER EMAR. PT CALLS FREQUENT FOR PAIN MEDS. PT HAS NEW ORDERS OF NORCO AND TORADOL. PT GETS SCHEDULED OXYCONTIN. PT REPORTS NO SOB AND CHEST PAIN. ORAL CARE COMPLETED. VSS. DR. OLIVEIRA ORDERED Q6 STRAIGHT CATH. STRAIGHT CATH PT X1 TODAY. LAST BLADDER SCAN WAS 200ML OF URINE IN BLADDER PT REFUSED TO GET TO BSC DUE TO BEING "TOO PAINFUL", PERWICK IN PLACE. PT EDUCATED ON MOBILITY. PT REFUSED PT/OT TODAY. PT HAS WOUND CARE ORDERS. PT IN BED, BED IN LOWEST POSTION, CALL LIGHT IN REACH. VSS.
--- NOTE | 2025-07-09 04:06 | NUR ---
SHIFT SUMMARY PT IS SOMEWHAT COOPERATIVE WITH CARE, INTERMITTENTLY AGITATED AND REQUESTS PAIN MEDICATION T/O THE NIGHT. MEDICATED PER EMAR. PT REPORTS 8/10 BLE'S PAIN WHICH MEDICATION NOT EFFECTIVE (TORADOL, OXYCONTIN AND NORCO). BLADDER SCAN Q6HRS, PT NOT COOPERATIVE WITH STRAIGH CATHING WITH THIS PAPER PROCESSING MACHINE HELPER. QUINCY ROMAN SUCCESSFUL WITH THE STRAIGHT CATHING @0400, 550MLS URINE OUTPUT. PT NAME CALLING THE STAFF. BED AT THE LOWEST POSITION, CALL LIGHT W/I REACH. PT IS A/O X3, ABLE TO MAKE HER NEEDS KNOWN.
[2025-07-09 04:46] VITALS: BP 133/56
[2025-07-09 07:06] VITALS: BP 133/75
--- NOTE | 2025-07-09 10:35 | NUR ---
NOTE PT HAS NORCO Q6 AND SCHEDULED OXYCONTIN. CONSULTED PHARMACY ABOUT TORADOL ADMINISTRATION. PT REPORTS 8/10 PAIN. PHARMACY REPORTED HOLD OFF ON GIVING TORADOL DUE TO PT HAVING HAD 60MG IN PAST 24 HOURS ALTHOUGH ORDER SAYS GIVE MAX 60 MG PER DAY. REPORTED TO DR. OLIVEIRA PT TAKES GABAPENTIN AT HOME. DR. OLIVEIRA REPORTED WILL START HER BACK ON THAT AT A LOWER DOSE. DR. OLIVEIRA REPORTED INSERT INDEWLLING CATH DUE TO X4 STRAIGHT CATH, NO URINE OUTPUT. PT HAS ACUTE RETENTION. DR. OLIVEIRA REPORTS "PT HAS BED AT [facility], THEY WILL BE ABLE TO BLADDER TRAIN PT WITH CATHETER" PT IN BED, BED IN LOWEST POSITION, CALL LIGHT IN REACH.
[2025-07-09] MEDS ORDERED: MELO7.5 PO (11:33)
[2025-07-09] MEDS ORDERED: LEVAQUIN750 MG PO (11:33)
[2025-07-09] MEDS ORDERED: PANT20 PO (11:34)
[2025-07-09] MEDS ORDERED: OXYCONTIN10 MG PO (11:34)
[2025-07-09] MEDS ORDERED: Senna-Extra17.2 MG PO (11:38)
--- NOTE | 2025-07-09 12:50 | NUR ---
NOTE DOOR FURRING INSTALLER REPORTED PT IS GOING TO BE TRANSPORTED BY WHEELCHAIR TO [facility]. THIS RN SUGGESTING GURNEY SINCE PT IS NOT PARTICIPATING WITH CARE. DOOR FURRING INSTALLER REPORTED "INSURANCE WONT COVER IT CONCESSIONIST IS AT 1330."
--- NOTE | 2025-07-09 15:31 | NUR ---
DISCHARGE NOTE PT A&03-4 FORGETFUL AT TIMES. PT ADMITTED DUE TO SEPSIS. HX OF L BKA. PT REPORTS BLE PAIN. PAIN MANAGED PER EMAR. OT ATTEMPTED TO WORK WITH PT. PT CALLS FREQ FOR PAIN MEDS. PT GETS SCHEDULED OXYCONTIN. PT REPORTS NO SOB AND NO CHEST PAIN. PT HAS WOUND CARE ORDERS. NEW MEPILEX APPLIED TO COCCYX AND R HEEL. ORDERED DISCHARGE. DR. OLIVEIRA REPORTED TO LEAVE LEMUS IN PLACE. INDWELLING CATH IN PLACE AT DISCHARGE. STRIP CLEANER SET UP TRANSPORT. TRANSPORT TOOK DISCHARGE AND FACE SHEET. HARD SCRIPTS IN PACKET. COPY OF HARD SCRIPT IN CHART. PT LEFT WITH ALL BELONGINGS. THIS RN GAVE REPORT TO [facility] RN. TRANSPORT CAME FOR PT AT 1330. PT GOT TO SIDE OF BED. FUR POINTER AND THIS RN ASSISTED WITH TRANSFER TO WHEELCHAIR WITH GB.
== END 2025-07-09 13:45 | DRG 871 ==
LOC: ER 11:24 → MEDS 16:21 → ICUE 16:21 → PCU 07-07 01:08 → MEDS 07-07 16:39 → ENPENDDIS 07-09 10:53 → MEDS 07-09 13:45
PROVIDERS: Emergency Medicine; Internal Medicine; Internal Medicine Critical Care Medicine; ADMIT Internal Medicine
PROC: 0T9B70Z Drainage of Bladder with Drainage Device, Via Natural or Artificial Opening (ICD-10-PCS; principal; 2025-07-02)
PROC: 02HV33Z Insertion of Infusion Device into Superior Vena Cava, Percutaneous Approach (ICD-10-PCS; 2025-07-02)
PROC: 0BH17EZ Insertion of Endotracheal Airway into Trachea, Via Natural or Artificial Opening (ICD-10-PCS; 2025-07-02)
PROC: 3E033XZ Introduction of Vasopressor into Peripheral Vein, Percutaneous Approach (ICD-10-PCS; 2025-07-02)
PROC: 3E03329 Introduction of Other Anti-infective into Peripheral Vein, Percutaneous Approach (ICD-10-PCS; 2025-07-02)
PROC: 5A09357 Assistance with Respiratory Ventilation, Less than 24 Consecutive Hours, Continuous Positive Airway Pressure (ICD-10-PCS; 2025-07-02)
PROC: 5A1945Z Respiratory Ventilation, 24-96 Consecutive Hours (ICD-10-PCS; 2025-07-02)
PROC: 30233J1 Transfusion of Nonautologous Serum Albumin into Peripheral Vein, Percutaneous Approach (ICD-10-PCS; 2025-07-04)
DX: A41.51 Sepsis due to Escherichia coli [E. coli] (principal); G92.8 Other toxic encephalopathy; R65.21 Severe sepsis with septic shock; J96.21 Acute and chronic respiratory failure with hypoxia; N39.0 Urinary tract infection, site not specified; N17.9 Acute kidney failure, unspecified; E87.4 Mixed disorder of acid-base balance; F03.93 Unspecified dementia, unspecified severity, with mood disturbance; I73.9 Peripheral vascular disease, unspecified; T40.2X1A Poisoning by other opioids, accidental (unintentional), initial encounter; J44.9 Chronic obstructive pulmonary disease, unspecified; F11.10 Opioid abuse, uncomplicated; G89.4 Chronic pain syndrome; I12.9 Hypertensive chronic kidney disease with stage 1 through stage 4 chronic kidney disease, or unspecified chronic kidney disease; N18.31 Chronic kidney disease, stage 3a; R33.8 Other retention of urine; Z60.2 Problems related to living alone; Z89.512 Acquired absence of left leg below knee; Z79.82 Long term (current) use of aspirin; Z79.891 Long term (current) use of opiate analgesic; Z79.899 Other long term (current) drug therapy; Z88.0 Allergy status to penicillin
CPT/HCPCS: 31500; 36415; 36556; 51703; 71045; 80048; 80053; 80076; 80162; 80202; 80320; 81001; 82550; 82803; 82947; 83605; 83735; 84439; 84443; 84481; 85025; 85610; 87040; 87077; 87086; 87186; 93005; 93010; 94002; 94003; 94660; 94762; 96361-59; 96365-59; 97162; 97530; 99285; A9270; C1751; G0480; J0132; J1644; J1885; J1956; J2371; J2704; J3010; J3373; J3475; J3480; J7050; J7060; J7070; J7120; P9047

== ENCOUNTER → 2025-07-19 | Outpatient (CLI) | payer MEDICARE, OTHER ==
[~2025-07-19] MED LIST changes: +HYDROCODONE-AC1 EA19 PO; +LEVAQUIN750 MG PO; +MELO7.5 PO; +NEURONTIN300 MG PO; +OXYCONTIN10 MG PO; +PANT20 PO; +Senna-Extra17.2 MG PO
[2025-07-19 17:16] LABS: Alanine Aminotransfer (ALT/SGP 18.0 U/L (12-78); Albumin, Blood 3.5 g/dL (3.4-5.0); Albumin/Globulin Ratio 1.6 (0.8-1.8); Anion Gap 10.0 mmol/L (3-11); Aspartate Aminotrans (AST/SGOT 17.0 U/L (12-37); Bilirubin, Total 0.4 mg/dL (0.1-1.0); Blood Urea Nitrogen 33.0 mg/dL (8-24); CO2, Blood 26.0 mmol/L (21-32); Calcium, Blood 9.1 mg/dL (8.5-10.1); Chloride, Blood 106.0 mmol/L (98-108); Creatinine, Blood 1.31 mg/dL (0.40-1.00); Globulin, Blood 2.2 g/dL (2.2-4.0); Glucose, Blood 83.0 mg/dL (70-99); Potassium, Blood 4.8 mmol/L (3.5-5.5); Sodium, Blood 137.0 mmol/L (136-145); Total Protein, Blood 5.7 g/dL (6.4-8.2)
== END ==
LOC: LAB SHORT 16:26 → LAB 16:26
PROVIDERS: Nurse Practitioner Family
DX: E87.21 Acute metabolic acidosis (principal); G92.8 Other toxic encephalopathy
CPT/HCPCS: 80053